=== PATIENT | female | born 1940 | race Caucasian/White ===

== ENCOUNTER 2019-08-10 08:32 | Inpatient (IN) ==
[2019-08-10] MEDS ORDERED: SODIUM CHLORIDE 0.9% 1000ML 500 ML IV ONE (08:45)
[2019-08-10] MEDS ORDERED: SODIUM CHLORIDE 0.9% 500 ML IV SCH (08:45)
--- NOTE | 2019-08-10 09:01 | Emergency Department Note ---
History of Present Illness General Chief complaint: Rectal Bleed Stated complaint: BLOOD IN STOOL, ABDOMINAL PAIN Time Seen by Provider: 08/10/19 08:56 History of Present Illness Provider complaint: Rectal bleed Onset (ago): hour(s) 4 Location: abdomen and buttocks Severity: mild Current Pain Intensity: 0 Quality: + other (Cramping) Associated symptoms: no chest pain, no fever/chills, no malaise, no nausea/vomiting, no shortness of breath and no syncope 78-year-old female presents emergency department for rectal bleeding. She reports that at 5:00 this morning she woke up and tried to go to the bathroom because she was having crampy abdominal pain and had a large bowel movement that was explosive and had lots of blood in it. She states her clothes were covered in blood. She states she felt dizzy. She denies losing consciousness, chest pain, difficulty breathing. She denies any fevers. She denies any blood in her urine or vaginal bleeding. Home Medications Home Medications Medication Instructions Recorded Confirmed Type biotin 1,000 mcg chewable tablet 1,000 mcg PO QDD 11/02/17 08/10/19 History cholecalciferol (vitamin D3) 25 1,000 units PO DAILY 11/02/17 08/10/19 History mcg (1,000 unit) capsule disopyramide phosphate 100 mg 100 mg PO QAM cap 11/02/17 08/10/19 History capsule,extended release oxygen-air delivery systems #1 11/02/17 11/14/18 History warfarin 2.5 mg tablet 3.75 mg PO HS tab 11/02/17 08/10/19 History famotidine 40 mg tablet 40 mg PO HS PRN 11/14/18 08/10/19 History sitagliptin 25 mg tablet 25 mg PO QAM 11/14/18 08/10/19 History calcium carbonate [Calcium 600] 600 mg PO DAILY 08/10/19 08/10/19 History magnesium oxide 250 mg PO DAILY 08/10/19 08/10/19 History pantoprazole [Protonix] 40 mg PO QAM 08/10/19 08/10/19 History verapamil 40 mg PO TID 08/10/19 08/10/19 History Allergies Allergy/AdvReac Type Severity Reaction Status Date / Time hydromorphone [From Dilaudid] Allergy Severe Verified 08/10/19 09:48 morphine Allergy Severe BREATHING Verified 08/10/19 09:48 DIFFICULTY oxycodone Allergy Severe Verified 08/10/19 09:48 iodine Allergy Mild Verified 08/10/19 09:48 Artificial sweeteners Allergy Unknown unknown Uncoded 08/10/19 09:48 Dust Allergy Unknown molds, Uncoded 08/10/19 09:48 cats, dogs and smoke Past Med/Surg History Medical History Accidental fall (Chronic) Closed head injury (Chronic) Contusion (Chronic) COPD (chronic obstructive pulmonary disease) (Chronic) Dizziness (Chronic) Facial contusion (Chronic) GERD (gastroesophageal reflux disease) (Chronic) Hyperglycemia (Chronic) Hypertrophic cardiomyopathy (Chronic) Multiple abrasions (Chronic) Osteoporosis (Chronic) 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) SBO (small bowel obstruction) (Chronic) Scoliosis (Chronic) Weakness (Chronic) Surgical History History of (Chronic) S/P cataract surgery (Chronic) S/P lumbar spinal fusion (Chronic) Family History Father Lung disease Heart disease Mother Heart disease Social History (Updated 08/10/19 @ 11:52 by Nicole Argueta PA-C) Feels Safe at Home: Yes Smoking Status: Never smoker Hx Alcohol Use: Yes Alcohol Intake Frequency: Holidays/Special Occasions Hx Substance Use: No Childhood Exposure to Second-Hand Smoke: Yes Review of Systems A total of 10 systems reviewed and were otherwise negative Physical Exam Vital Signs Vital Signs - 24 hr 08/10/19 08:37 08/10/19 08:45 08/10/19 10:00 Temperature 36.6 C Temperature Source Oral Pulse Rate 115 H 97 H Pulse Rate [Apical] 89 Pulse Rhythm Regular Pulse Rhythm [Apical] Regular Pulse Strength [Apical] Normal Respiratory Rate 20 20 22 Respiratory Effort / Characteristics Non-Labored Spontaneous Non-Labored Spontaneous Respiratory Depth Normal Normal Respiratory Pattern Regular Blood Pressure 98/62 L Blood Pressure [Right Arm] 124/73 Blood Pressure Mean 74 Blood Pressure Mean [Right Arm] 90 Blood Pressure Position [Right Arm] Sitting Pulse Oximetry 94 99 100 Oxygen Delivery Method Nasal Cannula Nasal Cannula Nasal Cannula Oxygen Flow Rate 2 2 2 Sepsis Recent Fever Within 48 Hours No Sepsis New/Unexplained Change in Mental Status No Sepsis Action Taken by Nursing No Action Required 08/10/19 11:39 08/10/19 11:48 Temperature Temperature Source Pulse Rate 84 Pulse Rate [Apical] 84 Pulse Rhythm Pulse Rhythm [Apical] Regular Pulse Strength [Apical] Normal Respiratory Rate 18 18 Respiratory Effort / Characteristics Non-Labored Spontaneous Respiratory Depth Normal Respiratory Pattern Regular Blood Pressure 138/69 Blood Pressure [Right Arm] 138/69 Blood Pressure Mean Blood Pressure Mean [Right Arm] 92 Blood Pressure Position [Right Arm] Sitting Pulse Oximetry 99 99 Oxygen Delivery Method Nasal Cannula Nasal Cannula Oxygen Flow Rate 2 2 Sepsis Recent Fever Within 48 Hours Sepsis New/Unexplained Change in Mental Status Sepsis Action Taken by Nursing Physical Exam GENERAL: She is oriented to person, place, and time. She appears very petite and well-nourished. She does not appear distressed. She is on 2 L oxygen which she wears at all times. HENT: Exam performed. -Head: Normocephalic and atraumatic. -Right Ear: External ear normal. No mastoid tenderness. -Left Ear: External ear normal. No mastoid tenderness. -Mouth/Throat: The oropharynx is clear and moist. No trismus in the jaw. No dental abscesses or uvula swelling. No oropharyngeal exudate or tonsillar abscesses. EYES: Conjunctivae and EOM are normal. Pupils are equal, round, and reactive to light. Right eye exhibits no discharge. Left eye exhibits no discharge. No scleral icterus. NECK: Normal range of motion. Neck supple. No JVD present. No spinous process tenderness present. No carotid bruit present. No rigidity. No tracheal deviation and normal range of motion present. No Brudzinski's sign and no Kernig's sign noted. CV: Normal rate, irregular rhythm, systolic murmur present. Patient states she has a history of systolic murmur Intact distal pulses. There is no peripheral edema. Palpable radial pulses bue. PULM/CHEST: Effort normal and breath sounds normal. No respiratory distress. No stridor. She has no wheezes. She has no rales. -Chest Wall: She exhibits no tenderness. ABD: The abdomen is soft. Bowel sounds are normal. She has no distension. No ma ss is present. There is no tenderness. There is no rebound, no guarding, no Ramirez's sign and no tenderness at McBurney's point. Rovsig negative Rectal: Bright red blood per rectum. MUSC/SKEL: Severe scoliosis, baseline for patient. LYMPH: No cervical adenopathy. NEURO: She is alert and oriented to person, place, and time. She has normal strength. No cranial nerve deficit or sensory deficit. Coordination and gait normal. GCS eye subscore is 4. GCS verbal subscore is 5. GCS motor subscore is 6. Cerebellar tests wnl. SKIN: Skin is warm and dry. She is not diaphoretic. PSYCH: She has a normal mood and affect. Behavior is normal. Judgment and thought content normal. Course Course 0845: The patient was evaluated in room C10. A complete history and physical exam was performed. 1000: Vital signs stable. Labs show stable hemoglobin. INR is elevated. Given the patient's elderly age, being on Coumadin that is supratherapeutic, and the fact that she has never had a colonoscopy the patient will be admitted for serial hemoglobins and GI evaluation. Spoke with [facility] hospitalist Caterina who stated to admit to Dr. alegre Administered Medications Sodium Chloride (Nss) 500 mls @ 125 mls/hr IV .Q4H CODY Stop: 09/09/19 08:44 Last Admin: 08/10/19 09:35 Dose: 125 mls/hr Documented by: [id number] Discontinued Medications Sodium Chloride (Nss 1000ml) 500 mls @ 999 mls/hr IV .Q31M ONE Stop: 08/10/19 09:15 Last Infusion: 08/10/19 09:35 Dose: 0 mls/hr Documented by: [id number] Admin: 08/10/19 09:09 Dose: 999 mls/hr Documented by: [id number] Medical Decision Making Laboratory Data Result diagrams: 08/10/19 08:54 08/10/19 08:54 Lab Results 08/10/19 08/10/19 08/10/19 Range/Units 08:54 08:54 08:54 WBC 6.39 (4.8-10.8) K/uL RBC 3.74 L (4.2-5.4) M/uL Hgb 10.6 L (12.0-16.0) g/dL Hct 34.0 L (37-47) % MCV 90.9 (80-100) fL MCH 28.3 (25-34) pg MCHC 31.2 L (32-36) g/dL RDW Std Deviation 42.7 (36.4-46.3) fL RDW Coeff of Ruthie 12.7 (11.5-14.5) % Plt Count 250 (130-400) K/uL MPV 8.7 (7.4-10.4) fL Immature Gran % (Auto) 0.3 % Neut % (Auto) 73.5 % Lymph % (Auto) 18.6 % [place] % (Auto) 6.9 % Eos % (Auto) 0.5 % Baso % (Auto) 0.2 % Immature Gran # (Auto) 0.02 (0.00-0.02) K/uL Neut # (Auto) 4.70 (1.4-6.5) K/uL Lymph # (Auto) 1.19 L (1.2-3.4) K/uL [place] # (Auto) 0.44 (0.11-0.59) K/uL Eos # (Auto) 0.03 (0-0.5) K/uL Baso # (Auto) 0.01 (0-0.2) K/uL PT 32.3 H (9.0-12.0) Seconds INR 3.3 H (0.9-1.1) APTT 54.5 H* (21.0-31.0) Seconds PTT Ratio 2.0 Sodium (136-145) mmol/L Potassium (3.5-5.1) mmol/L Chloride (98-107) mmol/L Carbon Dioxide (21-32) mmol/L Anion Gap (3-11) BUN (7-18) mg/dl Creatinine (0.6-1.2) mg/dl Est Cr Clr Drug Dosing ml/min Est GFR ( Amer) Est GFR (Non-Af Amer) BUN/Creatinine Ratio (10-20) Glucose (70-99) mg/dl POC Glucose (70-99) mg/dl Calcium (8.5-10.1) mg/dl Magnesium (1.8-2.4) mg/dl Total Bilirubin (0.2-1) mg/dl Direct Bilirubin (0-0.2) mg/dl AST (15-37) U/L ALT (12-78) U/L Alkaline Phosphatase (45-117) U/L Troponin I (0-0.045) ng/ml Total Protein (6.4-8.2) gm/dl Albumin (3.4-5.0) gm/dl Lipase (73-393) U/L Blood Type O Positive Antibody Screen NEGATIVE Crossmatch See Detail 08/10/19 08/10/19 Range/Units 08:54 09:08 WBC (4.8-10.8) K/uL RBC (4.2-5.4) M/uL Hgb (12.0-16.0) g/dL Hct (37-47) % MCV (80-100) fL MCH (25-34) pg MCHC (32-36) g/dL RDW Std Deviation (36.4-46.3) fL RDW Coeff of Ruthie (11.5-14.5) % Plt Count (130-400) K/uL MPV (7.4-10.4) fL Immature Gran % (Auto) % Neut % (Auto) % Lymph % (Auto) % [place] % (Auto) % Eos % (Auto) % Baso % (Auto) % Immature Gran # (Auto) (0.00-0.02) K/uL Neut # (Auto) (1.4-6.5) K/uL Lymph # (Auto) (1.2-3.4) K/uL [place] # (Auto) (0.11-0.59) K/uL Eos # (Auto) (0-0.5) K/uL Baso # (Auto) (0-0.2) K/uL PT (9.0-12.0) Seconds INR (0.9-1.1) APTT (21.0-31.0) Seconds PTT Ratio Sodium 132 L (136-145) mmol/L Potassium 4.3 (3.5-5.1) mmol/L Chloride 93 L (98-107) mmol/L Carbon Dioxide 35 H (21-32) mmol/L Anion Gap 4.0 (3-11) BUN 18 (7-18) mg/dl Creatinine 0.49 L (0.6-1.2) mg/dl Est Cr Clr Drug Dosing 53.2 ml/min Est GFR ( Amer) 109.7 Est GFR (Non-Af Amer) 94.6 BUN/Creatinine Ratio 37.3 H (10-20) Glucose 136 H (70-99) mg/dl POC Glucose 127 H (70-99) mg/dl Calcium 9.3 (8.5-10.1) mg/dl Magnesium 1.7 L (1.8-2.4) mg/dl Total Bilirubin 0.6 (0.2-1) mg/dl Direct Bilirubin 0.1 (0-0.2) mg/dl AST 22 (15-37) U/L ALT 30 (12-78) U/L Alkaline Phosphatase 71 (45-117) U/L Troponin I 0.017 (0-0.045) ng/ml Total Protein 7.3 (6.4-8.2) gm/dl Albumin 3.4 (3.4-5.0) gm/dl Lipase 98 (73-393) U/L Blood Type Antibody Screen Crossmatch ECG Data Indication: + other (GIB) Rate (beats per minute): 106 Rhythm: + sinus tachycardia ECG Intervals/blocks: + Normal QRS, + Normal AK and + Normal QT-c ECG ST segments: + Normal ST segments MDM Narrative Vital signs stable. Labs show stable hemoglobin. INR is elevated. Given the patient's elderly age, being on Coumadin that is supratherapeutic, and the fact that she has never had a colonoscopy the patient will be admitted for serial hemoglobins and GI evaluation. Spoke with [facility] hospitalist Caterina who stated to admit to Dr. alegre Impression & Plan Acute GI bleeding, Supratherapeutic INR Discharge Plan Visit Data Chief Complaint: Rectal Bleed Stated Complaint: BLOOD IN STOOL, ABDOMINAL PAIN ED Provider: Chuck Ceron Discharge Problem: Acute GI bleeding, Supratherapeutic INR Patient Disposition: Admitted As Inpatient Forms Stand Alone Forms: My [facility] Prescriptions Prescriptions: No Action biotin 1,000 mcg tablet,chewable 1,000 mcg PO QDD RF: 0 cholecalciferol (vitamin D3) 1,000 unit capsule 1,000 units PO DAILY RF: 0 disopyramide phosphate [Norpace CR] 100 mg capsule, extended release 100 mg PO QAM RF: 0 warfarin [Coumadin] 2.5 mg tablet 3.75 mg PO HS RF: 0 (DME) oxygen-air delivery systems device See Dose Instructions .ROUTE .MEDSUPPLY Qty: 1 RF: 0 Januvia 25 mg tablet 25 mg PO QAM RF: 0 famotidine [Pepcid] 40 mg tablet 40 mg PO HS PRN (Reason: Acid Reflux) RF: 0 verapamil 40 mg tablet 40 mg PO TID RF: 0 pantoprazole [Protonix] 40 mg tablet,delayed release (DR/EC) 40 mg PO QAM RF: 0 calcium carbonate [Calcium 600] 600 mg calcium (1,500 mg) Tablet 600 mg PO DAILY RF: 0 magnesium oxide 250 mg magnesium Tablet 250 mg PO DAILY RF: 0 Referrals Referrals: Beatrice More MD [Primary Care Provider] -
[2019-08-10 09:12] LABS: Basophils # (auto) 0.01 K/uL (0-0.2); Basophils % (auto) 0.2 %; Eosinophils # (auto) 0.03 K/uL (0-0.5); Eosinophils % (auto) 0.5 %; Hemoglobin 10.6 g/dL (12.0-16.0); Immature Granulocytes # (auto) 0.02 K/uL (0.00-0.02); Immature Granulocytes % (auto) 0.3 %; Lymphocytes # (auto) 1.19 K/uL (1.2-3.4); Lymphocytes % (auto) 18.6 %; Mean Corpuscular Hemoglobin 28.3 pg (25-34); Mean Corpuscular Hgb Conc 31.2 g/dL (32-36); Mean Corpuscular Volume 90.9 fL (80-100); Mean Platelet Volume 8.7 fL (7.4-10.4); Monocytes # (auto) 0.44 K/uL (0.11-0.59); Monocytes % (auto) 6.9 %; Neutrophils % (auto) 73.5 %; Platelet Count 250 K/uL (130-400); RDW Coefficient of Variation 12.7 % (11.5-14.5); RDW Standard Deviation 42.7 fL (36.4-46.3); Red Blood Count 3.74 M/uL (4.2-5.4); White Blood Count 6.39 K/uL (4.8-10.8)
[2019-08-10 09:29] LABS: Albumin Level 3.4 gm/dl (3.4-5.0); BUN Creatinine Ratio 37.3 (10-20); Bilirubin Direct 0.1 mg/dl (0-0.2); Calcium 9.3 mg/dl (8.5-10.1); Creatinine Clr Calc Pharmacy 53.2 ml/min; Est GFR (African American) 109.7; Est GFR (Non-African American) 94.6; Magnesium 1.7 mg/dl (1.8-2.4); Potassium 4.3 mmol/L (3.5-5.1)
[2019-08-10 09:33] LABS: INR 3.3 (0.9-1.1); Prothrombin Time 32.3 Seconds (9.0-12.0)
[2019-08-10 09:34] LABS: Bilirubin,Total 0.6 mg/dl (0.2-1); Total Protein 7.3 gm/dl (6.4-8.2); Troponin I 0.017 ng/ml (0-0.045)
[2019-08-10 09:37] LABS: Partial Thromboplastin Time 54.5 Seconds (21.0-31.0)
[2019-08-10] MEDS ORDERED: SODIUM CHLORIDE 0.9% 250 ML IV PRN ×4 (10:39→22:41)
[2019-08-10] MEDS ORDERED: PHYTONADIONE 5 MG TAB PO STA (11:40)
[2019-08-10] MEDS ORDERED: PANTOPRAZOLE BOLUS/DRIP 1 EA IV STA (11:45)
[2019-08-10] MEDS ORDERED: PANTOprazole 80 MG in DEXTROSE 5% 100 ML IV ONE (11:45)
--- NOTE | 2019-08-10 11:49 | History & Physical Report ---
Date of Service August 10, 2019 Assessment & Plan (1) Rectal bleeding: (2) Supratherapeutic INR: Pt is 78 y/o F with PMH paroxysmal atrial fibrillation on Coumadin, hypertrophic obstructive cardiomyopathy, chronic respiratory failure on 2 L oxygen secondary to scoliosis, GERD presented to ER with complaint abdominal cramping this morning with explosive loose stool with bright red blood. Reported dizzy, denies syncope. In ER pt afebrile, P: 115 down to 88, R: 20, BP: 98/62, 94% on chronic 2L oxygen via NC No leukocytosis, H/H: 10.6/34 (Hgb: 11.9 on 08/01/2019), Plt: 250, INR: 3.3, BUN: 18, Cr: 0.49 Appears lower GI bleed. DDX: diverticular bleed, colitis, mass/cancer -In ER given 500ml NSS bolus followed by 125ml/hr -NPO -Type and cross PRBC and hold -Monitor H&H -Gentle IVF -Vitamin K 5mg po now -Monitor for further GI output -GI consult, spoke to Shruti TOM, recommends PPI drip; Pending further recommendations on CT abd/pelvis (3) Hypomagnesemia: Magnesium: 1.7 -Replace and monitor (4) Paroxysmal atrial fibrillation: On Coumadin INR: 3.3 today. Sinus rhythm -Hold Coumadin -Vitamin K 5mg po -Continue verapamil and norpace (5) Diabetes mellitus, type II: A1c: 6.4 on 08/01/2019 -Hold Januvia -NPO status for now -Monitor BSGs (6) Chronic respiratory failure: (7) Nocturnal hypoxemia: Restrictive lung disease secondary to scoliosis. Pt denies COPD diagnosis -Continue chronic 2L oxygen via NC -Home Bipap HS (8) Hypertrophic cardiomyopathy: History echo 2017: EF: 70%, grade 1 diastolic dysfunction, mild LVH, left ventricular outflow tract obstruction, mild mitral regurgitation, mild aortic stenosis -Continue Norpace (9) GERD (gastroesophageal reflux disease): -Hold oral PPI as on IV PPI currently DVT Prophylaxis -SCDs DNR/DNI as per discussion with pt Follows with Dr More for routine care Pt was seen and care coordinated with Dr Upton. See addendum History of Present Illness Chief Complaint: rectal bleeding Primary Care Provider: Beatrice More MD Pt is 78 y/o F with PMH paroxysmal atrial fibrillation on Coumadin, hypertrophic obstructive cardiomyopathy, chronic respiratory failure on 2 L oxygen secondary to scoliosis, GERD presented to ER with complaint of rectal bleeding. Patient states woke up this morning at 5 AM with abdominal cramping followed by explosive loose stool with bright red blood. Patient states blood covered nightgown and toilet. Denies any further abdominal pain. Patient states after episode felt dizzy, denies syncope. Last ate and drank at 9 PM last night. Did not take morning meds. Denies history of EGD or colonoscopy in past. Patient reports mother with history of colon cancer age 85. pt brings monthly log of her INR's since 01/2019 and have been from 2.1-2.8. Denies fever/chills, diaphoresis, N/V, HARVEY, vision changes, neck pain, CP, SOB, orthopnea, palpitations, cough, sore throat, choking, otalgia, rhinorrhea, paresthesias, weakness, extremity weakness, extremity edema, rashes, urinary symptoms. Denies NSAID use. History CT abdomen pelvis in 2007: Mild diverticulosis, mild wall thickening descending and rectosigmoid colon. Patient reports was to follow-up with GI however never did. Denies any prior history of rectal bleeding or melena. Allergies Allergy/AdvReac Type Severity Reaction Status Date / Time hydromorphone [From Dilaudid] Allergy Severe Verified 08/10/19 09:48 morphine Allergy Severe BREATHING Verified 08/10/19 09:48 DIFFICULTY oxycodone Allergy Severe Verified 08/10/19 09:48 iodine Allergy Mild Verified 08/10/19 09:48 Artificial sweeteners Allergy Unknown unknown Uncoded 08/10/19 09:48 Dust Allergy Unknown molds, Uncoded 08/10/19 09:48 cats, dogs and smoke Home Medications Home Medications Medication Instructions Recorded Confirmed Type biotin 1,000 mcg chewable tablet 1,000 mcg PO QDD 11/02/17 08/10/19 History cholecalciferol (vitamin D3) 25 1,000 units PO DAILY 11/02/17 08/10/19 History mcg (1,000 unit) capsule disopyramide phosphate 100 mg 100 mg PO QAM cap 11/02/17 08/10/19 History capsule,extended release oxygen-air delivery systems #1 11/02/17 11/14/18 History warfarin 2.5 mg tablet 3.75 mg PO HS tab 11/02/17 08/10/19 History famotidine 40 mg tablet 40 mg PO HS PRN 11/14/18 08/10/19 History sitagliptin 25 mg tablet 25 mg PO QAM 11/14/18 08/10/19 History calcium carbonate [Calcium 600] 600 mg PO DAILY 08/10/19 08/10/19 History magnesium oxide 250 mg PO DAILY 08/10/19 08/10/19 History pantoprazole [Protonix] 40 mg PO QAM 08/10/19 08/10/19 History verapamil 40 mg PO TID 08/10/19 08/10/19 History Past Med/Surg History Medical History (Updated 08/10/19 @ 11:57 by Nicole Argueta PA-C) Chronic respiratory failure Closed head injury (Chronic) Contusion (Chronic) COPD (chronic obstructive pulmonary disease) (Chronic) Diabetes mellitus, type II Dizziness (Chronic) Facial contusion (Chronic) GERD (gastroesophageal reflux disease) (Chronic) Hyperglycemia (Chronic) Hypertrophic cardiomyopathy (Chronic) Multiple abrasions (Chronic) Nocturnal hypoxemia Osteoporosis (Chronic) Paroxysmal atrial fibrillation 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) SBO (small bowel obstruction) (Chronic) Scoliosis (Chronic) Weakness (Chronic) Surgical History History of (Chronic) S/P cataract surgery (Chronic) S/P lumbar spinal fusion (Chronic) Family History Father Lung disease Heart disease Mother Heart disease Social History (Updated 08/10/19 @ 11:52 by Nicole Argueta PA-C) Feels Safe at Home: Yes Smoking Status: Never smoker Hx Alcohol Use: Yes Alcohol Intake Frequency: Holidays/Special Occasions Hx Substance Use: No Childhood Exposure to Second-Hand Smoke: Yes Review of Systems Review of Systems: All systems reviewed & are unremarkable except as noted in HPI & below Physical Exam Physical Exam: General: no distress, thin elderly female Head: normocephalic, atraumatic Eyes: PERRL, EOM's intact, conjunctiva non-injected, anicteric ENT: normal inspection external ears, nose, mucous membranes moist Neck: supple, trachea midline Lungs: clear, no respiratory distress CV: RRR, +systolic murmur, no pretibial edema Abd: normal BS, soft, non-tender to palpation Back: +scoliosis Ext: no cyanosis, no calf tenderness Neuro: A&O x 3, no focal deficits noted, normal affect Skin: warm, dry Results & Data Results & Data ([facility]) Vital Signs (Past 12 Hours) Vital Signs Temp Pulse Pulse Resp BP BP Pulse Ox 08/10/19 11:39 84 18 138/69 99 08/10/19 10:00 89 22 124/73 100 08/10/19 08:45 97 H 20 99 08/10/19 08:37 36.6 C 115 H 20 98/62 L 94 Laboratory Results Short CBC 08/10/19 Range/Units 08:54 WBC 6.39 (4.8-10.8) K/uL Hgb 10.6 L (12.0-16.0) g/dL Hct 34.0 L (37-47) % Plt Count 250 (130-400) K/uL BMP 08/10/19 08:54 Sodium 132 L Potassium 4.3 Chloride 93 L Carbon Dioxide 35 H BUN 18 Creatinine 0.49 L Glucose 136 H Calcium 9.3 Cardiac Enzymes 08/10/19 Range/Units 08:54 Troponin I 0.017 (0-0.045) ng/ml Liver Function 08/10/19 Range/Units 08:54 Total Bilirubin 0.6 (0.2-1) mg/dl Direct Bilirubin 0.1 (0-0.2) mg/dl AST 22 (15-37) U/L ALT 30 (12-78) U/L Alkaline Phosphatase 71 (45-117) U/L Albumin 3.4 (3.4-5.0) gm/dl ECG Rate (beats per minute): 106 Rhythm: sinus tachycardia Code Status & VTE Plan VTE Prophylaxis Plan VTE Prophylaxis will be ordered: Yes Supervising Physician Co-Signing Physician Notes Attending Addendum: care coordinated with ALEXIS Glover please refer to her notes for full details, I agree with her notes patient seen and examined, records reviewed by myself as well on exam, patient seen resting in bed, comfortable,not in distress states she feels somewhat improved compared to admission no active abdominal pain, nausea, dizziness, chest pain, dyspnea, palpitations last hematochezia episode at the ER this morning, moderate amount no other symptoms VS noted and reviewed oriented x 3 , not in distress, speaks in sentences with no effort nor accessory muscle use normal rate, regular rhythm, no murmurs clear breath sounds bilaterally non distended, soft, nontender no bipedal edema, erythema, warmth no neuro deficits WBC 6.3 Hg 10.6 Crea 0.49 EKG sinus tachycardia ASSESSMENT AND PLAN HEMATOCHEZIA, likely lower GI bleed, in the setting of COUMADIN USE FOR A FIB history of diverticulosis management of anemia below NPO, IV fluids, GI consulted INR 3.3, Vit K 5mg po given, INR daily ACUTE BLOOD LOSS ANEMIA Hg 10 monitor q6h, starting at 1pm 2 units PRBC on hold, consent signed tranfuse for Hg < 7 other diagnoses and plan of care as per ALEXIS Rvias notes Octaviano Upton MD
--- NOTE | 2019-08-10 12:26 | Gastrointestinal Consultation ---
Date of Consultation August 10, 2019 Assessment & Plan (1) Rectal bleedin78 y/o female pt with PMHx PAF on Coumadin, GERD, chronic resp failure on o2 and others below, admitted with several episodes of abd cramping and bloody diarrhea today, with baseline HGB 12 -> 10.6, BUN WNL, INR 3.3. Initially was a little hypotensive/tachy however VS improved with IVF and are stable. Abd is soft, currently nontender. Diff dx = ischemic/infectious/inflammatory colitis, unlikely brisk upper GIB from PUD/gastritis/etc, vs small bowel source, though normal BUN and lack of upper abd discomfort point against UGI source. - Agree with Vit K to reverse INR - Continue IV PPI - CTAP ordered (noncon due to iodine allergy) - Continue IVF - Trend H&H, transfuse PRN - Hold AC - Keep NPO - Monitor and document all GI output. - Will send stool for c. diff, culture to r/o infectious source - Will review need for endoscopy pending results of above Thank you for allowing us to participate in the care of this patient. Please call with any acute changes, questions or concerns. Please see addendum below with additional recommendation from my supervising physician. (2) Abdominal pain: Supervising Physician Co-Signing Physician Notes I performed a history and physical examination of the patient today, including specifically on physical exam - soft abdomen. I have discussed the patient's management with the advanced practitioner. Please refer to the nurse practitioner's note for the documented findings and plan of care. 78 yrs old female patient with constipation, admitted with BRBPR, hemodynamically stable. INR>3 due to Coumadin. Stool was seen in bathroom, solid brown stool with bright red blood around it, this suggest colonic source, diverticular, ischemic or stercoral ulcer. CT scan showed fecal retention. Plan: Correct coagulopathy. Give 2 L of Golytely now to clean her fecal retention. If bleeding persists or clinical status changes then may need colonoscopy over the weekend, otherwise may plan for Tuesday or OP based on clinical condition over the weekend. History of Present Illness Reason for Consultation: GIB Attending Physician: Octaviano Upton MD History of Present Illness Pt is a 78 y/o female with PMhx restrictive lung disease on chronic O2, T2DM, GERD, PAF on Coumadin, aortic stenosis, HCM, fam hx colon CA (mother), who early this AM developed 3 episodes of acute crampy lower abd pain followed by "explosive" loose bright red bloody stool. She did have some lightheadedness. She came to the ER and on arrival, HGB 10.6 (Baseline 12), INR supratherapeutic at 3.3, BUN 18, Cr 0.49, plts 250, WBC 6, Na 132, K 4.3. Initially BP was somewhat low and she was slightly tachy; VS now stable; BPs in the 110's, pulse 80's, afebrile. She had 1 further episode since admission. PPI gtt started along with IVF, vit K for INR reversal. Presently abd cramping only occurs intermittently; currently has none. She has some frequent heartburn despite daily PPI; takes H2RA with relief. Denies any recent change in meds, no ABX, no recent illnesses. Has refused endoscopies in the past even though her mother had colon CA. States "She may now be up for colonoscopy." No NSAIDs, tobacco. Denies n/v, hematemesis, melena, dysuria, hematuria, chest pain, dyspnea, syncope, change in appetite, easy bruising/bleeding, weight loss. Allergies Allergy/AdvReac Type Severity Reaction Status Date / Time hydromorphone [From Dilaudid] Allergy Severe Verified 08/10/19 09:48 morphine Allergy Severe BREATHING Verified 08/10/19 09:48 DIFFICULTY oxycodone Allergy Severe Verified 08/10/19 09:48 iodine Allergy Mild Verified 08/10/19 09:48 Artificial sweeteners Allergy Unknown unknown Uncoded 08/10/19 09:48 Dust Allergy Unknown molds, Uncoded 08/10/19 09:48 cats, dogs and smoke Home Medications Home Medications Medication Instructions Recorded Confirmed Type biotin 1,000 mcg chewable tablet 1,000 mcg PO QDD 11/02/17 08/10/19 History cholecalciferol (vitamin D3) 25 1,000 units PO DAILY 11/02/17 08/10/19 History mcg (1,000 unit) capsule oxygen-air delivery systems #1 11/02/17 11/14/18 History warfarin 2.5 mg tablet 3.75 mg PO HS tab 11/02/17 08/10/19 History famotidine 40 mg tablet 40 mg PO HS PRN 11/14/18 08/10/19 History sitagliptin 25 mg tablet 25 mg PO QAM 11/14/18 08/10/19 History calcium carbonate [Calcium 600] 600 mg PO DAILY 08/10/19 08/10/19 History disopyramide phosphate [Norpace] 100 mg PO QAM 08/10/19 08/10/19 History magnesium oxide 250 mg PO DAILY 08/10/19 08/10/19 History pantoprazole [Protonix] 40 mg PO QAM 08/10/19 08/10/19 History verapamil 40 mg PO TID 08/10/19 08/10/19 History Patient History Medical History (Updated 08/10/19 @ 11:57 by Nicole Argueta PA-C) Chronic respiratory failure Closed head injury (Chronic) Contusion (Chronic) COPD (chronic obstructive pulmonary disease) (Chronic) Diabetes mellitus, type II Dizziness (Chronic) Facial contusion (Chronic) GERD (gastroesophageal reflux disease) (Chronic) Hyperglycemia (Chronic) Hypertrophic cardiomyopathy (Chronic) Multiple abrasions (Chronic) Nocturnal hypoxemia Osteoporosis (Chronic) Paroxysmal atrial fibrillation 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) SBO (small bowel obstruction) (Chronic) Scoliosis (Chronic) Weakness (Chronic) Surgical History History of (Chronic) S/P cataract surgery (Chronic) S/P lumbar spinal fusion (Chronic) Family History Father Lung disease Heart disease Mother Heart disease Social History (Updated 08/10/19 @ 11:52 by Nicole Argueta PA-C) Preferred Language: Syriac Communication Ability: Effective Asbestos Worker Helper Required: No Beliefs That Will Affect Care: None marital status: Current Living Situation: Spouse Feels Safe at Home: Yes Safety Concerns: Feels Safe At This Time Smoking Status: Never smoker Hx Alcohol Use: Yes Alcohol type: wine Alcohol Intake Frequency: Holidays/Special Occasions Hx Substance Use: No Childhood Exposure to Second-Hand Smoke: Yes Review of Systems Review of Systems: All systems reviewed & are unremarkable except as noted in HPI & below Physical Exam Constitutional: well developed and + thin; no acute distress Eyes: PERRL, conjunctivae normal, anicteric sclerae Respiratory: normal respiratory effort, lungs clear to auscultation no respiratory distress Cardiovascular: Rate/Rhythm: regular rate and regular rhythm systolic murmur heard best RUSB Gastrointestinal (Abdomen): Inspection/Auscultation: abdomen normal to inspection and + hyperactive bowel sounds; abdomen not distended Percussion/Palpation: abdomen soft; abdomen nontender Skin: no rashes, warm and dry Psychiatric: A+Ox3, euthymic affect Results & Data ([facility]) Vital Signs (Past 12 Hours) Vital Signs Temp Pulse Pulse Resp BP BP Pulse Ox 08/10/19 11:48 84 18 138/69 99 08/10/19 11:39 84 18 138/69 99 08/10/19 10:00 89 22 124/73 100 08/10/19 08:45 97 H 20 99 08/10/19 08:37 36.6 C 115 H 20 98/62 L 94 Laboratory Results 08/10/19 08/10/19 08/10/19 Range/Units 12:58 09:08 08:54 WBC (4.8-10.8) K/uL RBC (4.2-5.4) M/uL Hgb 9.6 L (12.0-16.0) g/dL Hct 31.2 L (37-47) % MCV (80-100) fL MCH (25-34) pg MCHC (32-36) g/dL RDW Std Deviation (36.4-46.3) fL RDW Coeff of Ruthie (11.5-14.5) % Plt Count (130-400) K/uL MPV (7.4-10.4) fL Immature Gran % (Auto) % Neut % (Auto) % Lymph % (Auto) % [place] % (Auto) % Eos % (Auto) % Baso % (Auto) % Immature Gran # (Auto) (0.00-0.02) K/uL Neut # (Auto) (1.4-6.5) K/uL Lymph # (Auto) (1.2-3.4) K/uL [place] # (Auto) (0.11-0.59) K/uL Eos # (Auto) (0-0.5) K/uL Baso # (Auto) (0-0.2) K/uL PT (9.0-12.0) Seconds INR (0.9-1.1) APTT (21.0-31.0) Seconds PTT Ratio Sodium 132 L (136-145) mmol/L Potassium 4.3 (3.5-5.1) mmol/L Chloride 93 L (98-107) mmol/L Carbon Dioxide 35 H (21-32) mmol/L Anion Gap 4.0 (3-11) BUN 18 (7-18) mg/dl Creatinine 0.49 L (0.6-1.2) mg/dl Est Cr Clr Drug Dosing 53.2 ml/min Est GFR ( Amer) 109.7 Est GFR (Non-Af Amer) 94.6 BUN/Creatinine Ratio 37.3 H (10-20) Glucose 136 H (70-99) mg/dl POC Glucose 127 H (70-99) mg/dl Calcium 9.3 (8.5-10.1) mg/dl Magnesium 1.7 L (1.8-2.4) mg/dl Total Bilirubin 0.6 (0.2-1) mg/dl Direct Bilirubin 0.1 (0-0.2) mg/dl AST 22 (15-37) U/L ALT 30 (12-78) U/L Alkaline Phosphatase 71 (45-117) U/L Troponin I 0.017 (0-0.045) ng/ml Total Protein 7.3 (6.4-8.2) gm/dl Albumin 3.4 (3.4-5.0) gm/dl Lipase 98 (73-393) U/L Blood Type Antibody Screen Crossmatch 08/10/19 08/10/19 08/10/19 Range/Units 08:54 08:54 08:54 WBC 6.39 (4.8-10.8) K/uL RBC 3.74 L (4.2-5.4) M/uL Hgb 10.6 L (12.0-16.0) g/dL Hct 34.0 L (37-47) % MCV 90.9 (80-100) fL MCH 28.3 (25-34) pg MCHC 31.2 L (32-36) g/dL RDW Std Deviation 42.7 (36.4-46.3) fL RDW Coeff of Ruthie 12.7 (11.5-14.5) % Plt Count 250 (130-400) K/uL MPV 8.7 (7.4-10.4) fL Immature Gran % (Auto) 0.3 % Neut % (Auto) 73.5 % Lymph % (Auto) 18.6 % [place] % (Auto) 6.9 % Eos % (Auto) 0.5 % Baso % (Auto) 0.2 % Immature Gran # (Auto) 0.02 (0.00-0.02) K/uL Neut # (Auto) 4.70 (1.4-6.5) K/uL Lymph # (Auto) 1.19 L (1.2-3.4) K/uL [place] # (Auto) 0.44 (0.11-0.59) K/uL Eos # (Auto) 0.03 (0-0.5) K/uL Baso # (Auto) 0.01 (0-0.2) K/uL PT 32.3 H (9.0-12.0) Seconds INR 3.3 H (0.9-1.1) APTT 54.5 H* (21.0-31.0) Seconds PTT Ratio 2.0 Sodium (136-145) mmol/L Potassium (3.5-5.1) mmol/L Chloride (98-107) mmol/L Carbon Dioxide (21-32) mmol/L Anion Gap (3-11) BUN (7-18) mg/dl Creatinine (0.6-1.2) mg/dl Est Cr Clr Drug Dosing ml/min Est GFR ( Amer) Est GFR (Non-Af Amer) BUN/Creatinine Ratio (10-20) Glucose (70-99) mg/dl POC Glucose (70-99) mg/dl Calcium (8.5-10.1) mg/dl Magnesium (1.8-2.4) mg/dl Total Bilirubin (0.2-1) mg/dl Direct Bilirubin (0-0.2) mg/dl AST (15-37) U/L ALT (12-78) U/L Alkaline Phosphatase (45-117) U/L Troponin I (0-0.045) ng/ml Total Protein (6.4-8.2) gm/dl Albumin (3.4-5.0) gm/dl Lipase (73-393) U/L Blood Type O Positive Antibody Screen NEGATIVE Crossmatch See Detail
[2019-08-10] MEDS ORDERED: GLUCOSE 40% GEL 15 GM TUBE PO PRN ×2 (12:32→16:54)
[2019-08-10] MEDS ORDERED: D5W AND NSS 1,000 ML IV SCH (12:32)
[2019-08-10] MEDS ORDERED: GLUCAGON FOR INJ 1 MG VIAL SQ PRN ×2 (12:32→16:54)
[2019-08-10] MEDS ORDERED: CARBOHYDRATES FOR HYPOGLYCEMIA PO PRN ×2 (12:32→16:54)
[2019-08-10] MEDS ORDERED: DEXTROSE 50% 50 ML SYRINGE IV PRN ×2 (12:32→16:54)
[2019-08-10] MEDS ORDERED: ACETAMINOPHEN 325 MG TAB PO PRN (12:32)
[2019-08-10] MEDS ORDERED: GLUCOSE 10 TABS/TUBE PO PRN ×2 (12:32→16:54)
[2019-08-10] MEDS: PANTOprazole 40 MG in DEXTROSE 5% 100 ML IV SCH ×3 (12:49→22:52)
[2019-08-10 13:11] LABS: Hematocrit (blood only) 31.2 % (37-47); Hemoglobin 9.6 g/dL (12.0-16.0)
[2019-08-10] MEDS ORDERED: MAGNESIUM SULFATE / D5W 1 GM/100 ML BAG IV ONE (13:15)
--- NOTE | 2019-08-10 13:38 | CT Scan Report ---
CT SCAN OF THE ABDOMEN AND PELVIS WITHOUT CONTRAST CLINICAL HISTORY: hematochezia COMPARISON STUDY: September 19, 2014 TECHNIQUE: CT scan of the abdomen and pelvis was performed from the lung bases to the proximal femurs . Images are reviewed in the axial, sagittal, and coronal planes. IV contrast was not administered fo r this examination. A dose lowering technique was utilized adhering to the principles of ALARA. CT DOSE: 246.06 mGy.cm FINDINGS: Lower chest: There are persistent right lower lobe atelectatic changes. Liver: The unenhanced liver is normal in size, contour, and attenuation. There is no intrahepatic teddy iary ductal dilatation. Gallbladder: Unremarkable. Spleen: Normal in size and attenuation. Pancreas: Unremarkable. Adrenal glands: Unremarkable. Kidneys: There is a 2 mm nonobstructing left renal calculus. There is no hydronephrosis. No ureteral or bladder calculi are visualized. Bowel: There are no transition zones indicate bowel obstruction. There is no evidence of acute divert iculitis. There is moderate fecal retention. Clinical correlation regards to constipation is recommen ded. There are no findings to indicate acute appendicitis. Peritoneum: There is no intraperitoneal free air or abdominal ascites. Vasculature: The abdominal aorta is normal in course and caliber. Adenopathy: None. Pelvic viscera: There is a 42 mm right adnexal cystic lesion, likely ovarian. Skeletal structures: There is a severe scoliosis. IMPRESSION: 1. Examination limited due to the lack of intravenous and oral contrast 2. 2 mm nonobstructing left renal calculus 3. No evidence of bowel obstruction. No evidence of free air 4. No evidence of acute appendicitis. No evidence of acute diverticulitis 5. 42 mm cystic right adnexal lesion, likely ovarian. Given the age of the patient, ultrasound follow -up is recommended. 6. Fecal retention. Clinical correlation regards to constipation is recommended 7. Severe scoliosis ACT 112: Negative or not required by law. Electronically signed by: Donny Gonzalez M.D. 08/10/2019 1:37 PM
[2019-08-10] MEDS ORDERED: DISOPYRAMIDE PHOSPHATE 100 MG PO SCH (14:00)
[2019-08-10] MEDS: VERAPAMIL HCL 40 MG TAB PO SCH ×2 (14:10→20:50)
[2019-08-10] MEDS ORDERED: LAVAGE SOLUTION 4000ML PO SCH (16:30)
[2019-08-10 19:18] LABS: Hematocrit (blood only) 26.1 % (37-47); Hemoglobin 8.2 g/dL (12.0-16.0)
[2019-08-10] MEDS ORDERED: Nursing to Pharmacy Communication ONE (20:07)
[2019-08-10] MEDS: ONDANSETRON INJ 2 MG/ML 2 ML VIAL IV PRN (20:10)
[2019-08-10] MEDS: INSULIN ASPART 100 UNITS/ML 3 ML PEN SC SCH (20:51)
[2019-08-10] MEDS ORDERED: INSULIN ASPART 100 UNITS/ML 3 ML PEN SC SCH (21:00)
[2019-08-10] MEDS ORDERED: SODIUM CHLORIDE 0.9% 1000ML 1,000 ML IV SCH ×2 (22:33→23:45)
[2019-08-10 22:36] LABS: Hemoglobin 6.7 g/dL (12.0-16.0); Mean Corpuscular Hgb Conc 31.9 g/dL (32-36); Mean Corpuscular Volume 90.9 fL (80-100); Mean Platelet Volume 8.4 fL (7.4-10.4); Platelet Count 182 K/uL (130-400); RDW Coefficient of Variation 12.8 % (11.5-14.5); RDW Standard Deviation 42.4 fL (36.4-46.3); Red Blood Count 2.31 M/uL (4.2-5.4); White Blood Count 5.92 K/uL (4.8-10.8)
[2019-08-10 22:41] LABS: Albumin Level 2.5 gm/dl (3.4-5.0); BUN Creatinine Ratio 35.5 (10-20); Creatinine Clr Calc Pharmacy 55.5 ml/min; Est GFR (African American) 111.2; Est GFR (Non-African American) 95.9
[2019-08-10 22:49] LABS: Basophils # (auto) 0.01 K/uL (0-0.2); Basophils % (auto) 0.2 %; Eosinophils # (auto) 0.01 K/uL (0-0.5); Eosinophils % (auto) 0.2 %; Hypochromasia Present; Immature Granulocytes # (auto) 0.02 K/uL (0.00-0.02); Immature Granulocytes % (auto) 0.3 %; Lymphocytes # (auto) 0.94 K/uL (1.2-3.4); Lymphocytes % (auto) 15.9 %; Monocytes # (auto) 0.32 K/uL (0.11-0.59); Monocytes % (auto) 5.4 %; Neutrophils # (auto) 4.62 K/uL (1.4-6.5)
[2019-08-10 22:50] LABS: Bilirubin,Total 0.5 mg/dl (0.2-1); Globulin 2.6 gm/dl (2.5-4.0); Total Protein 5.1 gm/dl (6.4-8.2)
[2019-08-10 22:51] LABS: INR 3.6 (0.9-1.1); Partial Thromboplastin Ratio 1.7; Prothrombin Time 35.2 Seconds (9.0-12.0)
[2019-08-10 22:58] LABS: Partial Thromboplastin Time 46.2 Seconds (21.0-31.0)
[2019-08-10] MEDS ORDERED: FUROSEMIDE 20 MG in SYRINGE 0 ML IV ONE (23:00)
--- NOTE | 2019-08-10 23:21 | Critical Care Consultation ---
Date of Consultation August 10, 2019 Assessment & Plan (1) Supratherapeutic INR: Reason Critically Ill: 78-year-old female admitted with acute GI bleed with acute blood loss anemia and supratherapeutic INR, code brigid called for hypotension and syncopal episode. Requiring multiple blood product transfusions and scheduled for endoscopy in the a.m. Neuro - [facility] ICU: Negative Syncopal eventpatient reportedly lost consciousness while going to the bathroom -Suspected syncopal event in the setting of GI bleed with acute blood loss anemia -Symptoms have since improved with volume resuscitation Cardiac - Hypertrophic cardiomyopathyecho from 2017 showed EF 70%, grade 1 diastolic dysfunction, mild LVH, left ventricular outflow tract obstruction, mild mitral regurg, mild aortic stenosis -We will continue volume resuscitation as she has had volume loss with GI bleed resulting in mild hypotension -Diuresis discontinued Proximal A. fibpatient was on Coumadin however discontinued for supratherapeutic INR -She is currently in normal sinus rhythm -Continue to monitor on telemetry -Maximize electrolyte Respiratory - Chronic respiratory failure secondary to restrictive lung disease from scoliosisat baseline, patient currently maintaining sats at home dose 2 L nasal cannula -Continuous monitoring on pulse ox GI - Acute GI bleedpatient has had multiple bloody bowel movements with bright red blood, likely lower GI bleed -No diverticulitis noted on CT abdomen however imaging was limited due to contrast allergy, no bowel obstruction -See treatment of acute blood loss anemia and supratherapeutic INR below -Patient to undergo endoscopy in the morning, case was discussed with Dr. Garcia, will correct INR prior to endoscope -N.p.o. -Discontinued GoLYTELY RENAL/LYTES - Creatinine stable, monitor electrolytes and replete as indicated with routine BMPs - Strict I's and O's ENDO - DM type IIcontinue sliding scale -Holding Januvia -ICU hyperglycemic protocol HEME - Acute blood loss anemiasecondary to GI bleed, see management above -Patient to undergo initial 2 units RBCs for hemoglobin 6.7, will trend H&H every 4 hours and transfuse if necessary Supratherapeutic INRpatient initially presented with INR 3.3 in the setting of acute GI bleed -Was initially given oral vitamin K, patient continued to bleed throughout the day and INR elevated to 3.7 on recheck following code purple -Currently transfusing with FFP with INR goal 1.5 or less -Coumadin DC'd on admission, holding other anticoagulants ID - No indication for infectious process at this time LINES/IV ACCESS - PIV's DVT PROPHYLAXIS - SCDs, hold anticoagulation for GI bleed I have personally spent 50 minutes of critical care time in the direct management of this patient. This is a life/limb threatening event. This includes time spent evaluating patient, direct bedside care, chart review, placing orders, interpretation of diagnostic studies, discussion with consultants, patient, and family members, as well as other required patient management activities. This time is exclusive of all separately billable procedures, and teaching time and separate from and in addition to any other critical care service time. Thank you for allowing us to participate in the care of this patient. Please refer to my attending physician's documentation for any further recommendations. (2) Acute GI bleeding: (3) Diabetes mellitus, type II: (4) Chronic respiratory failure: (5) Restrictive lung disease due to kyphoscoliosis: History of Present Illness Attending Physician: Octaviano Upton MD History of Present Illness Ms. Sinha is a 78-year-old female with PMH of proximal A. fib on Coumadin, hypertrophic obstructive cardiomyopathy, DM type II, restrictive lung disease due to scoliosis with chronic respiratory failure on 2 L baseline. Patient was admitted yesterday after having an episode of melena which was bright red and she did report dizziness. She denies history of EGD or colonoscopy. She did have a CT abdomen in 2007 that revealed mild diverticulosis and mild wall thickening of the descending and rectosigmoid colon but did not follow-up with GI. On this admission, INR was found to be supratherapeutic at 3.3 and she was initially treated with oral vitamin K. However, patient's hemoglobin has continued to downtrend throughout the day. She was given GoLYTELY in anticipation for endoscope. And was reportedly having numerous bloody stools. A code purple was called after the patient had just had a bloody stool with bright red blood and fainted. She was initially hypotensive and hypoxic but hemodynamically stabilized after 1 L of crystalloid bolus. Lab work revealed patient's hemoglobin had dropped to 6.7 and INR was actually elevated to 3.7. Decision was made to transfer patient to the ICU for further management. I spoke with Dr. Garcia with GI and patient is to undergo endoscopy in the morning. Plan to correct INR with FFP infusion and transfuse with RBCs. Currently patient is alert and oriented. She does report mild shortness of breath which she states is slightly worse than baseline. She also reports some abdominal tenderness with palpation but abdomen remains soft. She reports multiple bloody stools over the past few hours. She currently denies dizziness, headache, wheezing, labored work of breathing, chest pain, palpitations, nausea or vomiting. Allergies Allergy/AdvReac Type Severity Reaction Status Date / Time hydromorphone [From Dilaudid] Allergy Severe Verified 08/10/19 09:48 morphine Allergy Severe BREATHING Verified 08/10/19 09:48 DIFFICULTY oxycodone Allergy Severe Verified 08/10/19 09:48 iodine Allergy Mild Verified 08/10/19 09:48 aspartame Allergy Verified 08/10/19 16:21 stevioside [From Stevia] Allergy Verified 08/10/19 16:49 sucralose Allergy Verified 08/10/19 16:50 [From Splenda (sucralose)] Artificial sweeteners Allergy Unknown unknown Uncoded 08/10/19 09:48 Dust Allergy Unknown molds, Uncoded 08/10/19 09:48 cats, dogs and smoke Home Medications Home Medications Medication Instructions Recorded Confirmed Type biotin 1,000 mcg chewable tablet 1,000 mcg PO QDD 11/02/17 08/10/19 History cholecalciferol (vitamin D3) 25 1,000 units PO DAILY 11/02/17 08/10/19 History mcg (1,000 unit) capsule oxygen-air delivery systems #1 11/02/17 11/14/18 History warfarin 2.5 mg tablet 3.75 mg PO HS tab 11/02/17 08/10/19 History famotidine 40 mg tablet 40 mg PO HS PRN 11/14/18 08/10/19 History sitagliptin 25 mg tablet 25 mg PO QAM 11/14/18 08/10/19 History calcium carbonate [Calcium 600] 600 mg PO DAILY 08/10/19 08/10/19 History disopyramide phosphate [Norpace] 100 mg PO QAM 08/10/19 08/10/19 History magnesium oxide 250 mg PO DAILY 08/10/19 08/10/19 History pantoprazole [Protonix] 40 mg PO QAM 08/10/19 08/10/19 History verapamil 40 mg PO TID 08/10/19 08/10/19 History Patient History Medical History (Updated 08/10/19 @ 11:57 by Nicole Argueta PA-C) Chronic respiratory failure Closed head injury (Chronic) Contusion (Chronic) COPD (chronic obstructive pulmonary disease) (Chronic) Diabetes mellitus, type II Dizziness (Chronic) Facial contusion (Chronic) GERD (gastroesophageal reflux disease) (Chronic) Hyperglycemia (Chronic) Hypertrophic cardiomyopathy (Chronic) Multiple abrasions (Chronic) Nocturnal hypoxemia Osteoporosis (Chronic) Paroxysmal atrial fibrillation 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) SBO (small bowel obstruction) (Chronic) Scoliosis (Chronic) Weakness (Chronic) Surgical History History of (Chronic) S/P cataract surgery (Chronic) S/P lumbar spinal fusion (Chronic) Family History Father Lung disease Heart disease Mother Heart disease Social History (Updated 08/10/19 @ 11:52 by Nicole Argueta PA-C) Preferred Language: Chadian Communication Ability: Effective Reed Dipper Required: No Beliefs That Will Affect Care: None marital status: Current Living Situation: Spouse Feels Safe at Home: Yes Safety Concerns: Feels Safe At This Time Smoking Status: Never smoker Hx Alcohol Use: Yes Alcohol type: wine Alcohol Intake Frequency: Holidays/Special Occasions Hx Substance Use: No Childhood Exposure to Second-Hand Smoke: Yes Review of Systems Review of Systems: All systems reviewed & are unremarkable except as noted in HPI & below Physical Exam Constitutional: + thin and + frail appearing Eyes: PERRL, conjunctivae normal, anicteric sclerae ENMT: external ear and nose normal, oropharynx normal Neck: trachea midline, no thyromegaly Respiratory: normal respiratory effort, lungs clear to auscultation Cardiovascular: RRR, no murmur, no edema Vessels: no JVD Extremities: normal capillary refill; no edema Gastrointestinal (Abdomen): Abdomen distended but soft, hyperactive bowel sounds, generalized tenderness with palpation. Stool is loose with bright red blood. Skin: no rashes, warm and dry Neurologic: PERRL, EOMI, accommodation nl, no face palsy, no dysarthria Psychiatric: A+Ox3, euthymic affect Results & Data Results & Data ([facility]) Vital Signs (Past 12 Hours) Vital Signs Temp Pulse Pulse Resp BP BP BP 08/10/19 23:14 36.7 C 87 24 109/44 L 08/10/19 19:08 36.4 C L 76 22 133/72 08/10/19 18:45 84 08/10/19 15:23 36.5 C 72 18 118/63 08/10/19 13:17 98 H 08/10/19 12:32 36.8 C 18 144/77 H 08/10/19 11:48 84 18 138/69 08/10/19 11:39 84 18 138/69 Pulse Ox 08/10/19 23:14 100 08/10/19 19:08 99 08/10/19 18:45 08/10/19 15:23 100 08/10/19 13:17 08/10/19 12:32 98 08/10/19 11:48 99 08/10/19 11:39 99 Coding Level of Care Code Critical Care 1st 30-74 mins Diagnoses Supratherapeutic INR R79.1 Acute GI bleeding K92.2 Diabetes mellitus, type II E11.9 Chronic respiratory failure J96.10 Restrictive lung disease due to kyphoscoliosis J98.4; M41.9
[2019-08-11 00:17] LABS: Hematocrit (blood only) 18.1 % (37-47); Hemoglobin 5.7 g/dL (12.0-16.0)
[2019-08-11] MEDS ORDERED: SODIUM CHLORIDE 0.9% 250 ML IV PRN ×6 (00:17→11:26)
[2019-08-11] MEDS ORDERED: INSULIN ASPART 100 UNITS/ML 3 ML PEN SC SCH (00:24)
[2019-08-11] MEDS: INSULIN ASPART 100 UNITS/ML 3 ML PEN SC SCH (00:28)
[2019-08-11] MEDS ORDERED: INSULIN ASPART 100 UNITS/ML 3 ML PEN SC ONE (00:45)
[2019-08-11] MEDS: PANTOprazole 40 MG in DEXTROSE 5% 100 ML IV SCH ×3 (02:57→12:59)
[2019-08-11 03:49] LABS: Hematocrit (blood only) 14.5 % (37-47); Hemoglobin 4.8 g/dL (12.0-16.0)
[2019-08-11 03:58] LABS: INR 1.4 (0.9-1.1); Prothrombin Time 14.3 Seconds (9.0-12.0)
[2019-08-11] MEDS: ONDANSETRON INJ 2 MG/ML 2 ML VIAL IV PRN (04:03)
--- NOTE | 2019-08-11 07:00 | Electrocardiogram Report ---
Test Reason : Blood Pressure : / mmHG Vent. Rate : 106 BPM Atrial Rate : 106 BPM P-R Int : 146 ms QRS Dur : 078 ms QT Int : 314 ms P-R-T Axes : 063 042 084 degrees QTc Int : 417 ms Poor data quality, interpretation may be adversely affected Sinus tachycardia Possible Left atrial enlargement Borderline ECG When compared with ECG of 09-NOV-2014 18:27, Vent. rate has increased BY 45 BPM Confirmed by Matthew Villar ([id number]) on 08/11/2019 6:59:32 AM Referred By: SELF Confirmed By:Matthew Villar
[2019-08-11] MEDS ORDERED: CALCIUM GLUCONATE 10% 1,000 MG in SODIUM CHLORIDE 0.9% 50 ML IV STA (07:18)
[2019-08-11 07:26] LABS: BUN Creatinine Ratio 52.2 (10-20); Creatinine Clr Calc Pharmacy 93.3 ml/min; Est GFR (African American) 130.4; Est GFR (Non-African American) 112.5; Magnesium 1.5 mg/dl (1.8-2.4); Potassium 3.7 mmol/L (3.5-5.1)
[2019-08-11 07:27] LABS: Hematocrit (blood only) 21.2 % (37-47); Hemoglobin 7.3 g/dL (12.0-16.0); Mean Corpuscular Hemoglobin 29.2 pg (25-34); Mean Corpuscular Hgb Conc 34.4 g/dL (32-36); Mean Corpuscular Volume 84.8 fL (80-100); Platelet Count 79 K/uL (130-400); RDW Coefficient of Variation 13.7 % (11.5-14.5); RDW Standard Deviation 42.3 fL (36.4-46.3); White Blood Count 3.91 K/uL (4.8-10.8)
[2019-08-11 07:28] LABS: Immature Granulocytes # (auto) 0.01 K/uL (0.00-0.02); Immature Granulocytes % (auto) 0.3 %; Lymphocytes # (auto) 0.73 K/uL (1.2-3.4); Lymphocytes % (auto) 18.7 %; Monocytes # (auto) 0.41 K/uL (0.11-0.59); Monocytes % (auto) 10.5 %; Neutrophils # (auto) 2.76 K/uL (1.4-6.5); Neutrophils % (auto) 70.5 %; Platelet Estimate Decreased (Normal); RBC Morphology Unremarkable
--- NOTE | 2019-08-11 07:52 | Gastroenterology Progress Note ---
Date of Service August 11, 2019 Assessment & Plan (1) Acute GI bleeding: She is continue to have some GI output after initiation of colon prep. She still presents as a lower GI bleed, but given her decline in hemoglobin, as well as what appears to be a vasovagal episode endoscopic evaluation is necessary. On presentation when her INR was over 3 she only received vitamin K, which certainly would be contributory to continued bleeding in the state of blood thinning medications. She is now received FFP and that is corrected to below 1.5. Hemoglobin dropped to 6.7 from 10 on presentation, after 3 units it is up to greater than 7 right now. She has an additional unit to be given. Given her presentation we will plan on an upper endoscopy this morning, based upon those results we will proceed with a lower evaluation, she did receive some prep. As for now, continue to support her hemodynamics, continue IV PPI, repeat her INR. Further recommendations to follow endoscopic evaluations. Did discuss with her the risk and the benefits of the procedures, including the slight high risk of procedure given her urgent need and lack of prep if lower is pursued. Admission and Anticipated Discharge Date Admission Date: August 10, 2019 Subjective Overnight patient initiated a colon prep, several hours after initiating the prep patient was on the bedside commode and felt lightheaded. He lost consciousness but apparently became diaphoretic, pale and vital signs dropped, rebounding on their own without intervention. She was transferred to the ICU where her hemoglobin was rechecked and shown to be low, as well as an INR that was elevated. Her vital signs remained stable overnight with volume resuscitation. This morning she says that she feels much better she still has cramping in her belly, but no pain. No nausea vomiting and no signs of hematemesis or melena. She has no fevers and chills states she feels weak but overall she states that she feels better than last night. Review of Systems Review of Systems: All systems reviewed & are unremarkable except as noted in HPI & below Physical Exam Physical Exam: Quite thin, alert and oriented, talkative, no distress She has a very loud 3 out of 6 systolic murmur heard best at the right sternal border, mildly tachycardic but regular Lungs are mildly diminished in the bases, but otherwise clear throughout Abdomen is soft nontender nondistended normoactive sounds Thin extremities No jaundice or neurologic deficits Results & Data ([facility]) Vital Signs (Past 12 Hours) Vital Signs Temp Pulse Resp BP Pulse Ox 08/11/19 06:05 36.7 C 107 H 17 111/54 L 97 08/11/19 05:35 37.0 C 98 H 16 97/48 L 100 08/11/19 05:05 36.8 C 102 H 16 108/48 L 98 08/11/19 04:50 36.7 C 97 H 23 108/65 97 08/11/19 04:35 36.6 C 94 H 22 122/63 98 08/11/19 04:23 36.8 C 89 18 136/64 96 08/11/19 04:06 36.7 C 103 H 20 108/17 L 08/11/19 03:07 37.0 C 101 H 23 109/56 L 98 08/11/19 02:43 36.8 C 90 19 101/52 L 94 08/11/19 02:28 36.6 C 87 18 102/49 L 96 08/11/19 02:12 36.7 C 87 19 99/48 L 98 08/11/19 02:09 36.7 C 88 19 99/48 L 97 08/11/19 02:01 36.7 C 90 28 H 88/47 L 97 08/11/19 02:00 36.7 C 90 28 H 88/47 L 97 08/11/19 01:46 36.3 C L 96 H 26 H 103/49 L 92 08/11/19 01:30 36.7 C 88 24 102/40 L 99 08/11/19 01:25 36.7 C 85 24 94/42 L 99 08/11/19 01:18 36.7 C 84 20 96/51 L 100 08/11/19 01:03 36.6 C 94 H 20 107/46 L 99 08/11/19 00:45 36.9 C 83 25 H 91/47 L 100 08/11/19 00:40 36.6 C 90 24 85/41 L 100 08/11/19 00:17 36.7 C 86 16 84/45 L 100 08/11/19 00:00 36.6 C 82 19 73/44 L 100 08/10/19 23:50 81 19 87/44 L 100 08/10/19 23:47 36.6 C 81 19 87/44 L 100 08/10/19 23:40 81 23 84/51 L 100 08/10/19 23:32 36.8 C 86 23 86/43 L 100 08/10/19 23:31 36.6 C 83 24 86/43 L 100 08/10/19 23:30 82 25 H 86/43 L 100 08/10/19 23:15 87 21 87/53 L 100 08/10/19 23:14 36.7 C 87 24 109/44 L 100 08/10/19 23:09 87 24 109/44 L 91 08/10/19 23:00 90 29 H 106/75 96 08/10/19 22:45 87 24 94 08/10/19 22:35 36.6 C 87 24 86/47 L 90
--- NOTE | 2019-08-11 08:04 | Anesthesiology Consultation ---
Date of Service August 11, 2019 Assessment & Plan (1) Encounter for pre-operative examination: Chart Review Chart Review: Acceptable Risk for Surgery (urgent procedure due to ongoing blood loss) History Surgery Operation Date: 08/11/19 07:20 Proposed Procedures p Colonoscopy Dr Peter Green Height/Weight Height: 4 ft 10.75 in Weight: 35.8 kg Allergies Allergy/AdvReac Type Severity Reaction Status Date / Time hydromorphone [From Dilaudid] Allergy Severe Unknown Verified 08/11/19 03:55 morphine Allergy Severe BREATHING Verified 08/10/19 09:48 DIFFICULTY oxycodone Allergy Severe Unknown Verified 08/11/19 03:55 iodine Allergy Mild Unknown Verified 08/11/19 03:55 aspartame Allergy Unknown Verified 08/11/19 03:55 stevioside [From Stevia] Allergy Unknown Verified 08/11/19 03:55 sucralose Allergy Unknown Verified 08/11/19 03:55 [From Splenda (sucralose)] Medications Home Medications Medication Instructions Recorded Confirmed Last Taken biotin 1,000 mcg chewable tablet 1,000 mcg PO QDD 11/02/17 08/10/19 08/09/19 cholecalciferol (vitamin D3) 25 1,000 units PO DAILY 11/02/17 08/10/19 08/08/19 mcg (1,000 unit) capsule oxygen-air delivery systems #1 11/02/17 11/14/18 Unknown warfarin 2.5 mg tablet 3.75 mg PO HS tab 11/02/17 08/10/19 08/09/19 famotidine 40 mg tablet 40 mg PO HS PRN 11/14/18 08/10/19 08/08/19 sitagliptin 25 mg tablet 25 mg PO QAM 11/14/18 08/10/19 08/09/19 calcium carbonate [Calcium 600] 600 mg PO DAILY 08/10/19 08/10/19 08/09/19 disopyramide phosphate [Norpace] 100 mg PO QAM 08/10/19 08/10/19 08/09/19 magnesium oxide 250 mg PO DAILY 08/10/19 08/10/19 08/09/19 pantoprazole [Protonix] 40 mg PO QAM 08/10/19 08/10/19 08/09/19 verapamil 40 mg PO TID 08/10/19 08/10/19 08/09/19 Active Medications Generic Name Dose Route Start Last Admin Trade Name Freq PRN Reason Stop Dose Admin Pantoprazole Sodium 40 mg/ 100 mls @ 20 mls/hr 08/10/19 12:00 08/11/19 02:57 Dextrose IV 09/09/19 11:59 8 mg/hr Q5H CODY 20 mls/hr Administration 8 MG/HR Sodium Chloride 1,000 mls @ 60 mls/hr 08/10/19 23:45 08/11/19 06:05 Nss 1000ml IV 09/09/19 23:44 60 mls/hr .[id number] CODY Infusion Insulin Aspart 0 units 08/11/19 00:24 08/11/19 06:34 Novolog Flexpen SC 09/10/19 00:00 Not Given Q6 CODY Ondansetron HCl 4 mg 08/10/19 12:32 08/11/19 04:03 Zofran IV 09/09/19 12:31 4 mg Q6H PRN Administration Nausea Past Medical History Medical History (Updated 08/11/19 @ 08:07 by Jose Lu MD) Chronic respiratory failure Closed head injury (Chronic) Contusion (Chronic) COPD (chronic obstructive pulmonary disease) (Chronic) Diabetes mellitus, type II Dizziness (Chronic) Facial contusion (Chronic) GERD (gastroesophageal reflux disease) (Chronic) Hyperglycemia (Chronic) Hypertrophic cardiomyopathy (Chronic) Left ventricular outflow tract obstruction Multiple abrasions (Chronic) Nocturnal hypoxemia Osteoporosis (Chronic) Paroxysmal atrial fibrillation 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) SBO (small bowel obstruction) (Chronic) Scoliosis (Chronic) Weakness (Chronic) Past Family History Family History Father Lung disease Heart disease Mother Heart disease Past Surgical History Surgical History History of (Chronic) S/P cataract surgery (Chronic) S/P lumbar spinal fusion (Chronic) Social History Smoking Status: Never smoker Hx Alcohol Use: Yes Alcohol type: wine alcohol intake frequency: 0-2 drinks per day Alcohol Intake Frequency Comment: A half glass of wine with dinner Hx Substance Use: No substance use type: does not use Physical Exam Vital Signs Last Vital Signs Temp 36.9 C 08/11/19 07:57 Pulse 104 H 08/11/19 07:57 Resp 18 08/11/19 07:57 BP 88/50 L 08/11/19 07:57 Pulse Ox 100 08/11/19 07:57 Testing Laboratory Results 08/11/19 06:42 08/11/19 06:42 PT 14.3 Seconds (9.0-12.0) H 08/11/19 03:28 INR 1.4 (0.9-1.1) H 08/11/19 03:28 APTT 46.2 Seconds (21.0-31.0) H* 08/10/19 22:13 Blood Type O Positive 08/10/19 08:54 Antibody Screen NEGATIVE 08/10/19 08:54 08/11/19 08/11/19 08/10/19 06:13 00:05 20:25 POC Glucose 165 H 209 H 243 H Electrocardiogram Date: 08/10/19 Findings: + ST @ (106) Echocardiogram Date: 03/20/14 EF: 65-70% LV Function: normal Valvular Disease: + (mild) and + pertinent finding (outflow tract obstruction)
[2019-08-11 08:21] LABS: Fibrinogen 166 mg/dl (184-400)
[2019-08-11 08:34] LABS: INR 1.5 (0.9-1.1); Prothrombin Time 15.8 Seconds (9.0-12.0)
--- NOTE | 2019-08-11 08:40 | Critical Care Progress Note ---
Date of Service August 11, 2019 Assessment & Plan (1) Acute GI bleeding: Impression: 78-year-old female anticoagulated on Coumadin for atrial fibrillation presenting with acute GI bleed. She has known diverticular disease based on CT abdomen from 08. She developed symptomatic anemia with continued blood loss and elevated INR and was transferred to the ICU late last evening where she received additional resuscitation Recommendations: 1. Acute GI bleed. Suspect lower source. Discussed with GI today. Plan is to take patient for colonoscopy. If definitive therapy can be conducted here can remain here. But if the patient requires interventional radiology for embolization, surgical intervention, or if this appears to be small bowel or upper bleed she may require transfer to a tertiary facility. Continue Protonix for now although this does not appear to be an upper GI bleed. Maintain 2 large-bore IVs at all time. Holding most of her outpatient p.o. medications pending endoscopy. 2. Coagulopathy: Patient anticoagulated on Coumadin for atrial fibrillation. She received FFP and INR is below 1.5. Platelets have dropped but do not think she requires platelets currently. Her fibrinogen is below 200 and she will get additional cryoprecipitate. Calcium is being repleted. Additional blood products are being transfused and will try and maintain her hemoglobin below given the active ongoing bleeding. 3. Presyncope: Secondary to symptomatic anemia and hypovolemia. Continue to follow. 4. Restrictive lung disease with chronic hypoxemic respiratory failure: Continue supplemental oxygen. She is using her home APAP nightly. 5. Pancytopenia: Labs this morning showed decreased white cell, decrease hemoglobin hematocrit, and low platelet count. Do not suspect a marrow issue as her values from earlier did not demonstrate all 3 lines depressed. 6. Hyperglycemia: Suspect reactive however we will continue to follow and continue ICU hyperglycemic protocol. 7. History of moderate to severe aortic stenosis by report. Echocardiogram not available. Additional recommendations and ultimate disposition will depend on findings from endoscopy. Discussed with patient and ICU nurse at bedside (2) Supratherapeutic INR: (3) Anemia: (4) Abdominal pain: Admission and Anticipated Discharge Date Admission Date: August 10, 2019 Subjective Patient seen and examined. EMR reviewed. Discussed with critical care ERIKA on several occasions during the night. The patient this morning states that she is experiencing some lower pelvic discomfort radiating across midline. No nausea or vomiting. She has not sat up so cannot comment on any additional syncope or presyncope. She did undergo a prep. She continues to have jose melena. Physical Exam Constitutional: + thin; no acute distress and not ill appearing Neck: trachea midline, no thyromegaly Respiratory: normal respiratory effort, lungs clear to auscultation Cardiovascular: Rate/Rhythm: + tachycardic Heart Sounds: normal S1, normal S2 and + murmur Gastrointestinal (Abdomen): Mild distention. Bowel sounds are present. She is tender to palpation in the bilateral lower quadrants. No rebound or guarding Musculoskeletal: Extremities: extremities normal to inspection Skin: no rashes, warm and dry Neurologic: Nonfocal exam Lymphatic: no cervical lymphadenopathy Results & Data Results & Data ([facility]) Vital Signs (Past 12 Hours) Vital Signs Temp Pulse Resp BP Pulse Ox 08/11/19 08:13 36.8 C 103 H 19 122/60 100 08/11/19 07:57 36.9 C 104 H 18 88/50 L 100 08/11/19 06:05 36.7 C 107 H 17 111/54 L 97 08/11/19 05:35 37.0 C 98 H 16 97/48 L 100 08/11/19 05:05 36.8 C 102 H 16 108/48 L 98 08/11/19 04:50 36.7 C 97 H 23 108/65 97 08/11/19 04:35 36.6 C 94 H 22 122/63 98 08/11/19 04:23 36.8 C 89 18 136/64 96 08/11/19 04:06 36.7 C 103 H 20 108/17 L 08/11/19 03:07 37.0 C 101 H 23 109/56 L 98 08/11/19 02:43 36.8 C 90 19 101/52 L 94 08/11/19 02:28 36.6 C 87 18 102/49 L 96 08/11/19 02:12 36.7 C 87 19 99/48 L 98 08/11/19 02:09 36.7 C 88 19 99/48 L 97 08/11/19 02:01 36.7 C 90 28 H 88/47 L 97 08/11/19 02:00 36.7 C 90 28 H 88/47 L 97 08/11/19 01:46 36.3 C L 96 H 26 H 103/49 L 92 08/11/19 01:30 36.7 C 88 24 102/40 L 99 08/11/19 01:25 36.7 C 85 24 94/42 L 99 08/11/19 01:18 36.7 C 84 20 96/51 L 100 08/11/19 01:03 36.6 C 94 H 20 107/46 L 99 08/11/19 00:45 36.9 C 83 25 H 91/47 L 100 08/11/19 00:40 36.6 C 90 24 85/41 L 100 08/11/19 00:17 36.7 C 86 16 84/45 L 100 08/11/19 00:00 36.6 C 82 19 73/44 L 100 08/10/19 23:50 81 19 87/44 L 100 08/10/19 23:47 36.6 C 81 19 87/44 L 100 08/10/19 23:40 81 23 84/51 L 100 08/10/19 23:32 36.8 C 86 23 86/43 L 100 08/10/19 23:31 36.6 C 83 24 86/43 L 100 08/10/19 23:30 82 25 H 86/43 L 100 08/10/19 23:15 87 21 87/53 L 100 08/10/19 23:14 36.7 C 87 24 109/44 L 100 08/10/19 23:09 87 24 109/44 L 91 08/10/19 23:00 90 29 H 106/75 96 08/10/19 22:45 87 24 94 08/10/19 22:35 36.6 C 87 24 86/47 L 90 Laboratory Results 08/11/19 06:42 08/11/19 06:42 Fibrinogen 166 INR 1.4 Coding Level of Care Code Critical Care 1st 30-74 mins Diagnoses Acute GI bleeding K92.2 Supratherapeutic INR R79.1 Anemia D64.9 Abdominal pain R10.9 Time Spent (min) 42 Comment 42 minutes critical care time spent evaluating managing and stabilizing patient with life threatening bleeding issues.
[2019-08-11] MEDS ORDERED: MAGNESIUM SULFATE / D5W 1 GM/100 ML BAG IV ONE (09:19)
--- NOTE | 2019-08-11 10:48 | GI REPORT ---
Patient Name: Samantha Sinha Procedure Date: 08/11/2019 9:08 AM Date of : 1940 Admit Type: Inpatient Age: 78 Gender: Female Attending MD: Jonn Green MD Procedure: Upper GI endoscopy Providers: Jonn Green MD, Teresa Wolfe MD Referring MD: Octaviano Upton Indications: Hematochezia Medicines: Monitored Anesthesia Care Complications: No immediate complications. Estimated blood loss: None. Estimated Blood Loss: Estimated blood loss: none. Procedure: Pre-Anesthesia Assessment: - Pre-Anesthesia Assessment: - Prior to the procedure, a History and Physical was performed, and patient medications, allergies and sensitivities were reviewed. The patient's tolerance of previous anesthesia was reviewed. Please see Lola [facility]indola for complete details. - The risks and benefits of the procedure and the sedation options and risks were discussed with the patient. All questions were answered and informed consent was obtained. - Patient identification and proposed procedure were verified prior to the procedure by the physician and the nurse. The procedure was verified in the pre-procedure area in the procedure room. After obtaining informed consent, the endoscope was passed carefully and meticuously under direct vision and only advanced when the lumen was clearly identified, C02 insuflation was utilized throughout the entirity of the procedure. Throughout the procedure, the patient's blood pressure, pulse, and oxygen saturations were monitored continuously. After obtaining informed consent, the endoscope was passed under direct vision. Throughout the procedure, the patient's blood pressure, pulse, and oxygen saturations were monitored continuously. The Endoscope was introduced through the mouth, and advanced to the fourth part of duodenum. The upper GI endoscopy was accomplished without difficulty. The patient tolerated the procedure well. Findings: The examined esophagus was normal. The entire examined stomach was normal. The first portion of the duodenum, second portion of the duodenum, third portion of the duodenum, fourth portion of the duodenum and examined duodenum were normal. Impression: - Normal esophagus. - Normal stomach. - Normal first portion of the duodenum, second portion of the duodenum, third portion of the duodenum, fourth portion of the duodenum and examined duodenum. - No specimens collected. Recommendation: - Perform a colonoscopy today. - No signs of upper GI bleeding. Jonn Green MD 08/11/2019 10:47:27 AM This report has been signed electronically. Teresa Wolfe MD Note Initiated On: 08/11/2019 9:08 AM Number of Addenda: 0 I attest to the content of the Intraoperative Record and orders documented therein, exceptions below {[id number]}
--- NOTE | 2019-08-11 10:53 | GI REPORT ---
Patient Name: Samantha Sinha Procedure Date: 08/11/2019 9:58 AM Date of : 1940 Admit Type: Inpatient Age: 78 Gender: Female Attending MD: Jonn Green MD Procedure: Colonoscopy Providers: Jonn Green MD, Teresa Wolfe MD Referring MD: Octaviano Upton Indications: Hematochezia Medicines: Monitored Anesthesia Care Complications: No immediate complications. Estimated blood loss: None. Estimated Blood Loss: Estimated blood loss: none. Procedure: Pre-Anesthesia Assessment: - Pre-Anesthesia Assessment: - Prior to the procedure, a History and Physical was performed, and patient medications, allergies and sensitivities were reviewed. The patient's tolerance of previous anesthesia was reviewed. Please see [facility] for complete details. - The risks and benefits of the procedure and the sedation options and risks were discussed with the patient. All questions were answered and informed consent was obtained. - Patient identification and proposed procedure were verified prior to the procedure by the physician and the nurse. The procedure was verified in the pre-procedure area in the procedure room. After obtaining informed consent, the endoscope was passed carefully and meticuously under direct vision and only advanced when the lumen was clearly identified, C02 insuflation was utilized throughout the entirity of the procedure. Throughout the procedure, the patient's blood pressure, pulse, and oxygen saturations were monitored continuously. After I obtained informed consent, the scope was passed under direct vision. Throughout the procedure, the patient's blood pressure, pulse, and oxygen saturations were monitored continuously. The Endoscope was introduced through the anus and advanced to the cecum, identified by appendiceal orifice and ileocecal valve. The scope was introduced through the and advanced to. The colonoscopy was performed without difficulty. The patient tolerated the procedure well. The quality of the bowel preparation was poor. Findings: Hematin, red, and clotted blood (altered blood/fwbdsu-fhbeam-bbtf material) was found in the entire colon. Multiple small and large-mouthed diverticula were found in the sigmoid colon, descending colon and ascending colon. The distal ileum contained hematin (altered blood/phybyo-ooeukp-rnby material). No active bleeding was identified after very close and meticulous irrigation and washing. Impression: - Preparation of the colon was poor. - No active bleeding identified, prior evidence of bleeding noted. - No specimens collected. Recommendation: - Return patient to ICU for ongoing care. - Transfer to Tertiary Center with IR capabilities. Continue to support hemodynamics. Jonn Green MD 08/11/2019 10:52:48 AM This report has been signed electronically. Teresa Wolfe MD Note Initiated On: 08/11/2019 9:58 AM Number of Addenda: 0 I attest to the content of the Intraoperative Record and orders documented therein, exceptions below {[id number]}
[2019-08-11 11:22] LABS: Hematocrit (blood only) 20.2 % (37-47); Hemoglobin 6.8 g/dL (12.0-16.0)
--- NOTE | 2019-08-11 11:40 | Hospitalist Progress Note ---
Date of Service August 11, 2019 Assessment & Plan (1) Rectal bleeding: (2) Supratherapeutic INR: Symptomatic anemia 78 y/o F with PMH paroxysmal atrial fibrillation on Coumadin, hypertrophic obstructive cardiomyopathy, chronic respiratory failure on 2 L oxygen secondary to scoliosis, GERD presented to ER with complaint abdominal cramping this morning with explosive loose stool with bright red blood. INR on admission 3.3 Hbg dropped to 4.8 CT abd/pelvis showed No evidence of bowel obstruction. No evidence of free air No evidence of acute appendicitis. No evidence of acute diverticulitis Received so far 5 units PRBC, 3 units FFP and 1 unit Cryo Most recent repeat hgb 6.8 Colonoscopy done today showed : Hematin, red, and clotted blood (altered blood/xclcow-ldmswl-pvcg material) was found in the entire colon. Multiple small and large-mouthed diverticula were found in the sigmoid colon, descending colon and ascending colon. The distal ileum contained hematin (altered blood/oquhrw-bojzzg-dyre material). No active bleeding was identified after very close and meticulous irrigation and washing. EGD done today showed : Normal esophagus. Normal stomach. Normal duodenum Case discussed with GI that recommended to transfer to tertiary care facility for IR intervention Will give an additional 2 units FFP and 2 units PRBC Continue PPI drip Vit K given on admission and INR 1.5 today and continue to hold coumadin was notified by Gastro Dr. Green and agreed to transfer to [place] Case discussed with [facility] hospitalist in [place] Dr. Cedeno who agreed with the transfer Continue monitor H/H Will keep NPO for now (3) Hypomagnesemia: Magnesium: 1.5 today Mag replaced Continue monitor Mg level (4) Paroxysmal atrial fibrillation: Rate has been btw 80's to 100's INR on admission 3.3 Received Vit K and INR 1.5 today Continue to hold coumadin due to the GI bleed (5) Diabetes mellitus, type II: A1c: 6.4 on 08/01/2019 Continue to hold oral DM Continue monitor BS (6) Chronic respiratory failure: (7) Nocturnal hypoxemia: Restrictive lung disease secondary to scoliosis. Continue chronic 2L oxygen via [place] [facility] (8) Hypertrophic cardiomyopathy: History echo 2017: EF: 70%, grade 1 diastolic dysfunction, mild LVH, left ventricular outflow tract obstruction, mild mitral regurgitation, mild aortic stenosis Continue Norpace (9) GERD (gastroesophageal reflux disease): Continue PPI drip Right adnexal cyst CT pelvis/abd showed 42 mm cystic right adnexal lesion, likely ovarian. Recommended pelvis u/s DVT Prophylaxis Coumadin on hold SCDs due to GI bleeding DNR/DNI Disposition Will transfer to [facility] for possible IR Interventional Accepting hospitalist physician Dr. Cedeno Admission and Anticipated Discharge Date Admission Date: August 10, 2019 Subjective Pt was seen and examined Lying in bed with no distress Pt said that she continue to have large bloody bowel movement She said that she feels very weak Denies any chest pain, palpitation, dizziness and SOB Physical Exam Physical Exam: General- No acute distress Head- atraumatic Eyes- PERRL, EOMI, ENT- oropharynx clear Neck- supple, no JVD Lungs- clear to auscultation Heart- +tachycardia +murmur Abdomen- normal bowel sounds, soft, nontender Extremities- no calf tenderness Neuro- alert, oriented x 3; PERRL, EOMI; no facial palsy; no dysarthria Skin- warm & dry Results & Data Results & Data ([facility]) Vital Signs (Past 12 Hours) Vital Signs Temp Pulse Pulse Resp BP BP Pulse Ox 08/11/19 11:15 36.5 C 94 H 24 104/54 L 100 08/11/19 11:05 95 H 16 113/70 99 08/11/19 10:55 98 H 20 109/51 L 97 08/11/19 10:45 36.3 C L 103 H 20 127/67 96 08/11/19 09:38 36.9 C 98 H 16 109/56 L 98 08/11/19 09:12 36.9 C 94 H 16 126/73 99 08/11/19 08:57 36.9 C 114 H 19 122/61 99 08/11/19 08:41 36.8 C 98 H 17 123/56 L 100 08/11/19 08:30 36.8 C 97 H 19 122/61 99 08/11/19 08:28 36.9 C 98 H 18 103/66 99 08/11/19 08:13 36.8 C 103 H 19 122/60 100 08/11/19 07:57 36.9 C 104 H 18 88/50 L 100 08/11/19 06:05 36.7 C 107 H 17 111/54 L 97 08/11/19 05:35 37.0 C 98 H 16 97/48 L 100 08/11/19 05:05 36.8 C 102 H 16 108/48 L 98 08/11/19 04:50 36.7 C 97 H 23 108/65 97 08/11/19 04:35 36.6 C 94 H 22 122/63 98 08/11/19 04:23 36.8 C 89 18 136/64 96 08/11/19 04:06 36.7 C 103 H 20 108/17 L 08/11/19 03:07 37.0 C 101 H 23 109/56 L 98 08/11/19 02:43 36.8 C 90 19 101/52 L 94 08/11/19 02:28 36.6 C 87 18 102/49 L 96 08/11/19 02:12 36.7 C 87 19 99/48 L 98 08/11/19 02:09 36.7 C 88 19 99/48 L 97 08/11/19 02:01 36.7 C 90 28 H 88/47 L 97 08/11/19 02:00 36.7 C 90 28 H 88/47 L 97 08/11/19 01:46 36.3 C L 96 H 26 H 103/49 L 92 08/11/19 01:30 36.7 C 88 24 102/40 L 99 08/11/19 01:25 36.7 C 85 24 94/42 L 99 08/11/19 01:18 36.7 C 84 20 96/51 L 100 08/11/19 01:03 36.6 C 94 H 20 107/46 L 99 08/11/19 00:45 36.9 C 83 25 H 91/47 L 100 08/11/19 00:40 36.6 C 90 24 85/41 L 100 08/11/19 00:17 36.7 C 86 16 84/45 L 100 08/11/19 00:00 36.6 C 82 19 73/44 L 100 08/10/19 23:50 81 19 87/44 L 100 08/10/19 23:47 36.6 C 81 19 87/44 L 100 08/10/19 23:40 81 23 84/51 L 100 08/10/19 23:32 36.8 C 86 23 86/43 L 100 08/10/19 23:31 36.6 C 83 24 86/43 L 100
--- NOTE | 2019-08-11 11:41 | Gastroenterology Progress Note ---
Date of Service August 11, 2019 Assessment & Plan (1) Acute GI bleeding: Transfer to tertiary center for possible IR intervention if necessary. Spoke to and aware. Hospitalist and ICU MD making arrangements. Call with questions. Admission and Anticipated Discharge Date Admission Date: August 10, 2019 Subjective Patient underwent EGD/Colonoscopy today. procedures were performed without issue or difficulty and patient tolerated well. No signs of bleeding on EGD On Colonoscopy, blood in colon, no active bleed. However fernandes-colonic diverticulosis. TI had some old appearing blood in it ? backwash vs small bowel source. Physical Exam Physical Exam: looks well post procedure, abd soft, nt,nd. VSS Results & Data ([facility]) Vital Signs (Past 12 Hours) Vital Signs Temp Pulse Pulse Resp BP BP Pulse Ox 08/11/19 11:15 36.5 C 94 H 24 104/54 L 100 08/11/19 11:05 95 H 16 113/70 99 08/11/19 10:55 98 H 20 109/51 L 97 08/11/19 10:45 36.3 C L 103 H 20 127/67 96 08/11/19 09:38 36.9 C 98 H 16 109/56 L 98 08/11/19 09:12 36.9 C 94 H 16 126/73 99 08/11/19 08:57 36.9 C 114 H 19 122/61 99 08/11/19 08:41 36.8 C 98 H 17 123/56 L 100 08/11/19 08:30 36.8 C 97 H 19 122/61 99 08/11/19 08:28 36.9 C 98 H 18 103/66 99 08/11/19 08:13 36.8 C 103 H 19 122/60 100 08/11/19 07:57 36.9 C 104 H 18 88/50 L 100 08/11/19 06:05 36.7 C 107 H 17 111/54 L 97 08/11/19 05:35 37.0 C 98 H 16 97/48 L 100 08/11/19 05:05 36.8 C 102 H 16 108/48 L 98 08/11/19 04:50 36.7 C 97 H 23 108/65 97 08/11/19 04:35 36.6 C 94 H 22 122/63 98 08/11/19 04:23 36.8 C 89 18 136/64 96 08/11/19 04:06 36.7 C 103 H 20 108/17 L 08/11/19 03:07 37.0 C 101 H 23 109/56 L 98 08/11/19 02:43 36.8 C 90 19 101/52 L 94 08/11/19 02:28 36.6 C 87 18 102/49 L 96 08/11/19 02:12 36.7 C 87 19 99/48 L 98 08/11/19 02:09 36.7 C 88 19 99/48 L 97 08/11/19 02:01 36.7 C 90 28 H 88/47 L 97 08/11/19 02:00 36.7 C 90 28 H 88/47 L 97 08/11/19 01:46 36.3 C L 96 H 26 H 103/49 L 92 08/11/19 01:30 36.7 C 88 24 102/40 L 99 08/11/19 01:25 36.7 C 85 24 94/42 L 99 08/11/19 01:18 36.7 C 84 20 96/51 L 100 08/11/19 01:03 36.6 C 94 H 20 107/46 L 99 08/11/19 00:45 36.9 C 83 25 H 91/47 L 100 08/11/19 00:40 36.6 C 90 24 85/41 L 100 08/11/19 00:17 36.7 C 86 16 84/45 L 100 08/11/19 00:00 36.6 C 82 19 73/44 L 100 08/10/19 23:50 81 19 87/44 L 100 08/10/19 23:47 36.6 C 81 19 87/44 L 100 08/10/19 23:40 81 23 84/51 L 100
--- NOTE | 2019-08-11 12:02 | Anesthesiology Progress Note ---
Date of Service August 11, 2019 Anesthesia Post Procedure Vital Signs Vital Signs: Temp Pulse Pulse Resp BP BP BP 08/11/19 11:47 36.2 C L 101 H 21 104/55 L 08/11/19 11:40 36.1 C L 95 H 20 99/57 L 08/11/19 11:15 36.5 C 94 H 24 104/54 L 08/11/19 11:05 95 H 16 113/70 08/11/19 10:55 98 H 20 109/51 L 08/11/19 10:45 36.3 C L 103 H 20 127/67 08/11/19 09:38 36.9 C 98 H 16 109/56 L 08/11/19 09:12 36.9 C 94 H 16 126/73 08/11/19 08:57 36.9 C 114 H 19 122/61 08/11/19 08:41 36.8 C 98 H 17 123/56 L 08/11/19 08:30 36.8 C 97 H 19 122/61 08/11/19 08:28 36.9 C 98 H 18 103/66 08/11/19 08:13 36.8 C 103 H 19 122/60 08/11/19 07:57 36.9 C 104 H 18 88/50 L 08/11/19 06:05 36.7 C 107 H 17 111/54 L 08/11/19 05:35 37.0 C 98 H 16 97/48 L 08/11/19 05:05 36.8 C 102 H 16 108/48 L 08/11/19 04:50 36.7 C 97 H 23 108/65 08/11/19 04:35 36.6 C 94 H 22 122/63 08/11/19 04:23 36.8 C 89 18 136/64 08/11/19 04:06 36.7 C 103 H 20 108/17 L 08/11/19 03:07 37.0 C 101 H 23 109/56 L 08/11/19 02:43 36.8 C 90 19 101/52 L 08/11/19 02:28 36.6 C 87 18 102/49 L 08/11/19 02:12 36.7 C 87 19 99/48 L 08/11/19 02:09 36.7 C 88 19 99/48 L 08/11/19 02:01 36.7 C 90 28 H 88/47 L 08/11/19 02:00 36.7 C 90 28 H 88/47 L 08/11/19 01:46 36.3 C L 96 H 26 H 103/49 L 08/11/19 01:30 36.7 C 88 24 102/40 L 08/11/19 01:25 36.7 C 85 24 94/42 L 08/11/19 01:18 36.7 C 84 20 96/51 L 08/11/19 01:03 36.6 C 94 H 20 107/46 L 08/11/19 00:45 36.9 C 83 25 H 91/47 L 08/11/19 00:40 36.6 C 90 24 85/41 L 08/11/19 00:17 36.7 C 86 16 84/45 L 08/11/19 00:00 36.6 C 82 19 73/44 L 08/10/19 23:50 81 19 87/44 L 08/10/19 23:47 36.6 C 81 19 87/44 L 08/10/19 23:40 81 23 84/51 L 08/10/19 23:32 36.8 C 86 23 86/43 L 08/10/19 23:31 36.6 C 83 24 86/43 L 08/10/19 23:30 82 25 H 86/43 L 08/10/19 23:15 87 21 87/53 L 08/10/19 23:14 36.7 C 87 24 109/44 L 08/10/19 23:09 87 24 109/44 L 08/10/19 23:00 90 29 H 106/75 08/10/19 22:45 87 24 08/10/19 22:35 36.6 C 87 24 86/47 L 08/10/19 19:08 36.4 C L 76 22 133/72 08/10/19 18:45 84 08/10/19 15:23 36.5 C 72 18 118/63 08/10/19 13:17 98 H 08/10/19 12:32 36.8 C 18 144/77 H Pulse Ox 08/11/19 11:47 93 08/11/19 11:40 97 08/11/19 11:15 100 08/11/19 11:05 99 08/11/19 10:55 97 08/11/19 10:45 96 08/11/19 09:38 98 08/11/19 09:12 99 08/11/19 08:57 99 08/11/19 08:41 100 08/11/19 08:30 99 08/11/19 08:28 99 08/11/19 08:13 100 08/11/19 07:57 100 08/11/19 06:05 97 08/11/19 05:35 100 08/11/19 05:05 98 08/11/19 04:50 97 08/11/19 04:35 98 08/11/19 04:23 96 08/11/19 04:06 08/11/19 03:07 98 08/11/19 02:43 94 08/11/19 02:28 96 08/11/19 02:12 98 08/11/19 02:09 97 08/11/19 02:01 97 08/11/19 02:00 97 08/11/19 01:46 92 08/11/19 01:30 99 08/11/19 01:25 99 08/11/19 01:18 100 08/11/19 01:03 99 08/11/19 00:45 100 08/11/19 00:40 100 08/11/19 00:17 100 08/11/19 00:00 100 08/10/19 23:50 100 08/10/19 23:47 100 08/10/19 23:40 100 08/10/19 23:32 100 08/10/19 23:31 100 08/10/19 23:30 100 08/10/19 23:15 100 08/10/19 23:14 100 08/10/19 23:09 91 08/10/19 23:00 96 08/10/19 22:45 94 08/10/19 22:35 90 08/10/19 19:08 99 08/10/19 18:45 08/10/19 15:23 100 08/10/19 13:17 08/10/19 12:32 98 Pain Intensity Abdomen: Pain Intensity: 0 Transfer of Care Handoff Completed per policy Notes Mental Status: alert / awake / arousable Patient Amnestic to Procedure: Yes Nausea / Vomiting: adequately controlled Pain: adequately controlled Airway Patency, RR, SpO2: stable & adequate BP & HR: stable & adequate Hydration State: stable & adequate Anesthetic Complications: no major complications apparent
--- NOTE | 2019-08-11 12:41 | Discharge Summary ---
Date of Service August 11, 2019 Admission HPI Per Admitting Provider Pt is 78 y/o F with PMH paroxysmal atrial fibrillation on Coumadin, hypertrophic obstructive cardiomyopathy, chronic respiratory failure on 2 L oxygen secondary to scoliosis, GERD presented to ER with complaint of rectal bleeding. Patient states woke up this morning at 5 AM with abdominal cramping followed by explosive loose stool with bright red blood. Patient states blood covered nightgown and toilet. Denies any further abdominal pain. Patient states after episode felt dizzy, denies syncope. Last ate and drank at 9 PM last night. Did not take morning meds. Denies history of EGD or colonoscopy in past. Patient reports mother with history of colon cancer age 85. pt brings monthly log of her INR's since 01/2019 and have been from 2.1-2.8. Denies fever/chills, diaphoresis, N/V, HARVEY, vision changes, neck pain, CP, SOB, orthopnea, palpitations, cough, sore throat, choking, otalgia, rhinorrhea, paresthesias, weakness, extremity weakness, extremity edema, rashes, urinary symptoms. Denies NSAID use. History CT abdomen pelvis in 2007: Mild diverticulosis, mild wall thickening descending and rectosigmoid colon. Patient reports was to follow-up with GI however never did. Denies any prior history of rectal bleeding or melena. Admission Exam Per Admitting Provider General: no distress, thin elderly female Head: normocephalic, atraumatic Eyes: PERRL, EOM's intact, conjunctiva non-injected, anicteric ENT: normal inspection external ears, nose, mucous membranes moist Neck: supple, trachea midline Lungs: clear, no respiratory distress CV: RRR, +systolic murmur, no pretibial edema Abd: normal BS, soft, non-tender to palpation Back: +scoliosis Ext: no cyanosis, no calf tenderness Neuro: A&O x 3, no focal deficits noted, normal affect Skin: warm, dry Principal Diagnosis Acute GI bledding Supratherapeutic INR Symptomatic anemia Hypomagnesemia Paroxysmal atrial fibrillation Diabetes mellitus, type II Chronic respiratory failure Nocturnal hypoxemia Restrictive lung disease secondary to scoliosis. Continue chronic 2L oxygen via [place] Hypertrophic cardiomyopathy: GERD (gastroesophageal reflux disease): Right adnexal cyst Discharge Exam General- No acute distress Head- atraumatic Eyes- PERRL, EOMI, ENT- oropharynx clear Neck- supple, no JVD Lungs- clear to auscultation Heart- +tachycardia +murmur Abdomen- normal bowel sounds, soft, nontender Extremities- no calf tenderness Neuro- alert, oriented x 3; PERRL, EOMI; no facial palsy; no dysarthria Skin- warm & dry Discharge Data Allergies Allergy/AdvReac Type Severity Reaction Status Date / Time hydromorphone [From Dilaudid] Allergy Severe Unknown Verified 08/11/19 03:55 morphine Allergy Severe BREATHING Verified 08/10/19 09:48 DIFFICULTY oxycodone Allergy Severe Unknown Verified 08/11/19 03:55 iodine Allergy Mild Unknown Verified 08/11/19 03:55 aspartame Allergy Unknown Verified 08/11/19 03:55 stevioside [From Stevia] Allergy Unknown Verified 08/11/19 03:55 sucralose Allergy Unknown Verified 08/11/19 03:55 [From Splenda (sucralose)] Consultations 08/10/19 10:03 ED Decision to Admit Stat 08/10/19 12:32 Consult Case Management - Discharge Planning Routine Consult Gastroenterology Stat 08/11/19 02:24 Consult Professional Golf Tournament Player Routine Procedures Performed Operation Date: 08/11/19 07:20 Actual Procedures p Colonoscopy in Operating Room(Not Applicable) - Jonn Green s Endoscopicgastroduodenoscopy in Operating Room - Jonn Green DICTATED BY: Jonn Green MD Patient Name: Samantha Sinha Procedure Date: 08/11/2019 9:08 AM Date of : 1940 Admit Type: Inpatient Age: 78 Gender: Female Attending MD: Jonn Green MD Procedure: Upper GI endoscopy Providers: Jonn Green MD, Teresa Wolfe MD Referring MD: Octaviano Upton Indications: Hematochezia Medicines: Monitored Anesthesia Care Complications: No immediate complications. Estimated blood loss: None. Estimated Blood Loss: Estimated blood loss: none. Procedure: Pre-Anesthesia Assessment: - Pre-Anesthesia Assessment: - Prior to the procedure, a History and Physical was performed, and patient medications, allergies and sensitivities were reviewed. The patient's tolerance of previous anesthesia was reviewed. Please see [employer] for complete details. - The risks and benefits of the procedure and the sedation options and risks were discussed with the patient. All questions were answered and informed consent was obtained. - Patient identification and proposed procedure were verified prior to the procedure by the physician and the nurse. The procedure was verified in the pre-procedure area in the procedure room. After obtaining informed consent, the endoscope was passed carefully and meticuously under direct vision and only advanced when the lumen was clearly identified, C02 insuflation was utilized throughout the entirity of the procedure. Throughout the procedure, the patient's blood pressure, pulse, and oxygen saturations were monitored continuously. After obtaining informed consent, the endoscope was passed under direct vision. Throughout the procedure, the patient's blood pressure, pulse, and oxygen saturations were monitored continuously. The Endoscope was introduced through the mouth, and advanced to the fourth part of duodenum. The upper GI endoscopy was accomplished without difficulty. The patient tolerated the procedure well. Findings: The examined esophagus was normal. The entire examined stomach was normal. The first portion of the duodenum, second portion of the duodenum, third portion of the duodenum, fourth portion of the duodenum and examined duodenum were normal. Impression: - Normal esophagus. - Normal stomach. - Normal first portion of the duodenum, second portion of the duodenum, third portion of the duodenum, fourth portion of the duodenum and examined duodenum. - No specimens collected. Recommendation: - Perform a colonoscopy today. - No signs of upper GI bleeding. Jonn Green MD 08/11/2019 10:47:27 AM This report has been signed electronically. Teresa Wolfe MD Note Initiated On: 08/11/2019 9:08 AM Number of Addenda: 0 I attest to the content of the Intraoperative Record and orders documented therein, exceptions below {[id number]} Signed By:{f rep sign date/time1] Created/Dictated: 08/11/19 0908 Transcribed: 08/11/19 1047 DICTATED BY: Jonn Green MD Patient Name: Samantha Sinha Procedure Date: 08/11/2019 9:58 AM Date of : 1940 Admit Type: Inpatient Age: 78 Gender: Female Attending MD: Jonn Green MD Procedure: Colonoscopy Providers: Jonn Green MD, Teresa Wolfe MD Referring MD: Octaviano Upton Indications: Hematochezia Medicines: Monitored Anesthesia Care Complications: No immediate complications. Estimated blood loss: None. Estimated Blood Loss: Estimated blood loss: none. Procedure: Pre-Anesthesia Assessment: - Pre-Anesthesia Assessment: - Prior to the procedure, a History and Physical was performed, and patient medications, allergies and sensitivities were reviewed. The patient's tolerance of previous anesthesia was reviewed. Please see [employer] for complete details. - The risks and benefits of the procedure and the sedation options and risks were discussed with the patient. All questions were answered and informed consent was obtained. - Patient identification and proposed procedure were verified prior to the procedure by the physician and the nurse. The procedure was verified in the pre-procedure area in the procedure room. After obtaining informed consent, the endoscope was passed carefully and meticuously under direct vision and only advanced when the lumen was clearly identified, C02 insuflation was utilized throughout the entirity of the procedure. Throughout the procedure, the patient's blood pressure, pulse, and oxygen saturations were monitored continuously. After I obtained informed consent, the scope was passed under direct vision. Throughout the procedure, the patient's blood pressure, pulse, and oxygen saturations were monitored continuously. The Endoscope was introduced through the anus and advanced to the cecum, identified by appendiceal orifice and ileocecal valve. The scope was introduced through the and advanced to. The colonoscopy was performed without difficulty. The patient tolerated the procedure well. The quality of the bowel preparation was poor. Findings: Hematin, red, and clotted blood (altered blood/zstitq-dextqw-york material) was found in the entire colon. Multiple small and large-mouthed diverticula were found in the sigmoid colon, descending colon and ascending colon. The distal ileum contained hematin (altered blood/hmzqnl-qwuxaa-acou material). No active bleeding was identified after very close and meticulous irrigation and washing. Impression: - Preparation of the colon was poor. - No active bleeding identified, prior evidence of bleeding noted. - No specimens collected. Recommendation: - Return patient to ICU for ongoing care. - Transfer to Tertiary Center with IR capabilities. Continue to support hemodynamics. Jonn Green MD 08/11/2019 10:52:48 AM This report has been signed electronically. Teresa Wolfe MD Note Initiated On: 08/11/2019 9:58 AM Number of Addenda: 0 I attest to the content of the Intraoperative Record and orders documented therein, exceptions below {[id number]} Signed By:{f rep sign date/time1] Created/Dictated: 08/11/19 0958 Transcribed: 08/11/19 1053 Ordered Studies 08/10/19 12:41 CT abd pelvis wo con Stat CT SCAN OF THE ABDOMEN AND PELVIS WITHOUT CONTRAST CLINICAL HISTORY: hematochezia COMPARISON STUDY: September 19, 2014 TECHNIQUE: CT scan of the abdomen and pelvis was performed from the lung bases to the proximal femurs. Images are reviewed in the axial, sagittal, and coronal planes. IV contrast was not administered for this examination. A dose lowering technique was utilized adhering to the principles of ALARA. CT DOSE: 246.06 mGy.cm FINDINGS: Lower chest: There are persistent right lower lobe atelectatic changes. Liver: The unenhanced liver is normal in size, contour, and attenuation. There is no intrahepatic biliary ductal dilatation. Gallbladder: Unremarkable. Spleen: Normal in size and attenuation. Pancreas: Unremarkable. Adrenal glands: Unremarkable. Kidneys: There is a 2 mm nonobstructing left renal calculus. There is no hydronephrosis. No ureteral or bladder calculi are visualized. Bowel: There are no transition zones indicate bowel obstruction. There is no evidence of acute diverticulitis. There is moderate fecal retention. Clinical correlation regards to constipation is recommended. There are no findings to indicate acute appendicitis. Peritoneum: There is no intraperitoneal free air or abdominal ascites. Vasculature: The abdominal aorta is normal in course and caliber. Adenopathy: None. Pelvic viscera: There is a 42 mm right adnexal cystic lesion, likely ovarian. Skeletal structures: There is a severe scoliosis. IMPRESSION: 1. Examination limited due to the lack of intravenous and oral contrast 2. 2 mm nonobstructing left renal calculus 3. No evidence of bowel obstruction. No evidence of free air 4. No evidence of acute appendicitis. No evidence of acute diverticulitis 5. 42 mm cystic right adnexal lesion, likely ovarian. Given the age of the patient, ultrasound follow-up is recommended. 6. Fecal retention. Clinical correlation regards to constipation is recommended 7. Severe scoliosis ACT 112: Negative or not required by law. Electronically signed by: Donny Gonzalez M.D. 08/10/2019 1:37 PM Dictated: 08/10/19 1326 Transcribed: 08/10/19 1336 Hospital Course (1) Rectal bleeding: (2) Supratherapeutic INR: GI bleeding Symptomatic anemia 78 y/o F with PMH paroxysmal atrial fibrillation on Coumadin, hypertrophic obstructive cardiomyopathy, chronic respiratory failure on 2 L oxygen secondary to scoliosis, GERD presented to ER with complaint abdominal cramping this morning with explosive loose stool with bright red blood. INR on admission 3.3 Hbg dropped to 4.8 CT abd/pelvis showed No evidence of bowel obstruction. No evidence of free air No evidence of acute appendicitis. No evidence of acute diverticulitis Received so far 5 units PRBC, 3 units FFP and 1 unit Cryo Most recent repeat hgb 6.8 Colonoscopy done today showed : Hematin, red, and clotted blood (altered blood/tdmeve-jbzeru-xhua material) was found in the entire colon. Multiple small and large-mouthed diverticula were found in the sigmoid colon, descending colon and ascending colon. The distal ileum contained hematin (altered blood/vjmajk-dozsrt-ayeu material). No active bleeding was identified after very close and meticulous irrigation and washing. EGD done today showed : Normal esophagus. Normal stomach. Normal duodenum Case discussed with GI that recommended to transfer to tertiary care facility for IR intervention Will give an additional 2 units FFP and 2 units PRBC Continue PPI drip Vit K given on admission and INR 1.5 today and continue to hold coumadin was notified by Gastro Dr. Green and agreed to transfer to [place] Case discussed with [facility] hospitalist in [place] Dr. Cedeno who agreed with the transfer Continue monitor H/H Will keep NPO for now (3) Hypomagnesemia: Magnesium: 1.5 today Mag replaced Continue monitor Mg level (4) Paroxysmal atrial fibrillation: Rate has been btw 80's to 100's INR on admission 3.3 Received Vit K and INR 1.5 today Continue to hold coumadin due to the GI bleed (5) Diabetes mellitus, type II: A1c: 6.4 on 08/01/2019 Continue to hold oral DM Continue monitor BS (6) Chronic respiratory failure: (7) Nocturnal hypoxemia: Restrictive lung disease secondary to scoliosis. Continue chronic 2L oxygen via [place] [facility] [employer] [facility] (8) Hypertrophic cardiomyopathy: History echo 2017: EF: 70%, grade 1 diastolic dysfunction, mild LVH, left ventricular outflow tract obstruction, mild mitral regurgitation, mild aortic stenosis Continue Norpace (9) GERD (gastroesophageal reflux disease): Continue PPI drip Right adnexal cyst CT pelvis/abd showed 42 mm cystic right adnexal lesion, likely ovarian. Recommended pelvis u/s DVT Prophylaxis Coumadin on hold SCDs due to GI bleeding DNR/DNI Disposition Will transfer to [facility] for possible IR Interventional Accepting hospitalist physician Dr. Cedeno Total Time Total Time Spent Total Time Spent (In Minutes): 60 minutes Total Time Includes: Examination of the Patient, Discharge Planning, Medication Reconciliation, Communication With Other Providers and Other Discharge Plan Discharge Items Patient Disposition: Transfer Acute Care Hospital Reason For Visit: gi bleed Discharge Diagnosis: Acute GI bleeding Supratherapeutic INR Symptomatic anemia Hypomagnesemia Paroxysmal atrial fibrillation Diabetes mellitus, type II Chronic respiratory failure Nocturnal hypoxemia Restrictive lung disease secondary to scoliosis. Continue chronic 2L oxygen via [place] Hypertrophic cardiomyopathy: GERD (gastroesophageal reflux disease): Right adnexal cyst Activity: Resume your previous activity Non-emergency contact: Primary Care Provider and Revenue Cycle Administrator Call non-emergency contact if: you have any medication questions Follow-up/Referrals: Beatrice More MD [Primary Care Provider] - Diet: Nothing by Mouth Addtl Attending Provider Instructions: Transfer to [facility] Accepting physician hospitalist Dr. Cedeno Consult Intervention radiology for evaluation Keep NPO for now Continue IV PPI drip for now Continue to hold coumadin due to GI bleeding Continue oxygen supplement Pending Studies at Discharge: No Stand-Alone Forms: My [employer] Items Patient informed of condition?: Yes DNR: Yes Discharge Level of Care: Other Communicable Disease: No Discharge Prognosis: Other Lines: Peripheral IV Urinary Catheter: No Medications and DC Order Prescriptions: Continued biotin 1,000 mcg tablet,chewable 1,000 mcg PO QDD RF: 0 cholecalciferol (vitamin D3) 1,000 unit capsule 1,000 units PO DAILY RF: 0 warfarin [Coumadin] 2.5 mg tablet 3.75 mg PO HS RF: 0 (DME) oxygen-air delivery systems device See Dose Instructions .ROUTE .MEDSUPPLY Qty: 1 RF: 0 Januvia 25 mg tablet 25 mg PO QAM RF: 0 famotidine [Pepcid] 40 mg tablet 40 mg PO HS PRN (Reason: Acid Reflux) RF: 0 verapamil 40 mg tablet 40 mg PO TID RF: 0 pantoprazole [Protonix] 40 mg tablet,delayed release (DR/EC) 40 mg PO QAM RF: 0 calcium carbonate [Calcium 600] 600 mg calcium (1,500 mg) Tablet 600 mg PO DAILY RF: 0 magnesium oxide 250 mg magnesium Tablet 250 mg PO DAILY RF: 0 disopyramide phosphate [Norpace] 100 mg Capsule 100 mg PO QAM RF: 0 Discharge Orders: Discharge Order (Routine); Ordered 08/11/19 Ordered By: Last Araya Admission Data Admit Date/Time: 08/10/19 10:38 Attending Provider: Last Araya Admit Provider: Octaviano Upton Primary Care Provider: Beatrice More Other Providers: Last Araya ; Teresa Wolfe ; Guerrero Blake ; Octaviano Upton
== END 2019-08-11 14:00 | disposition short-term general hospital (02) | DRG 378 ==
LOC: ED 08:32 → SUATTDRO 10:38 → 2W 10:38 → 1E 22:19

== ENCOUNTER 2019-08-17 19:00 | Inpatient (IN) ==
[2019-08-17 20:08] LABS: Basophils # (auto) 0.01 K/uL (0-0.2); Basophils % (auto) 0.2 %; Eosinophils # (auto) 0.14 K/uL (0-0.5); Eosinophils % (auto) 2.4 %; Hematocrit (blood only) 36.1 % (37-47); Hemoglobin 11.7 g/dL (12.0-16.0); Immature Granulocytes # (auto) 0.02 K/uL (0.00-0.02); Immature Granulocytes % (auto) 0.3 %; Lymphocytes # (auto) 1.01 K/uL (1.2-3.4); Lymphocytes % (auto) 17.5 %; Mean Corpuscular Hemoglobin 29.7 pg (25-34); Mean Corpuscular Hgb Conc 32.4 g/dL (32-36); Mean Corpuscular Volume 91.6 fL (80-100); Monocytes % (auto) 10.4 %; Neutrophils # (auto) 3.98 K/uL (1.4-6.5); Neutrophils % (auto) 69.2 %; Platelet Count 234 K/uL (130-400); RDW Coefficient of Variation 13.8 % (11.5-14.5); RDW Standard Deviation 45.3 fL (36.4-46.3); Red Blood Count 3.94 M/uL (4.2-5.4); White Blood Count 5.76 K/uL (4.8-10.8)
[2019-08-17 20:29] LABS: Albumin Level 3.1 gm/dl (3.4-5.0); BUN Creatinine Ratio 34.7 (10-20); Bilirubin Direct 0.1 mg/dl (0-0.2); Calcium 9.4 mg/dl (8.5-10.1); Creatinine Clr Calc Pharmacy 57.5 ml/min; Est GFR (Non-African American) 96.6; Potassium 4.5 mmol/L (3.5-5.1)
--- NOTE | 2019-08-17 20:32 | Emergency Department Note ---
History of Present Illness General Chief complaint: Rectal Bleed Stated complaint: RECTAL BLEED, ONGOING Time Seen by Provider: 08/17/19 19:34 History of Present Illness Provider complaint: Rectal bleeding and abdominal pain Onset (ago): hour(s) 2 Location: abdomen and buttocks Severity: moderate Pain Consistency: + constant Maximum Pain Intensity: 4 Current Pain Intensity: 4 Quality: + aching Relieved By: + none Exacerbated By: + eating Associated symptoms: no confusion, no chest pain, no cough, no fever/chills, no headaches, no nausea/vomiting, no shortness of breath and no weakness 78-year-old female presents emergency department for abdominal pain and bloody stools. Patient states that at 6 PM tonight she started having abdominal pain after eating a tract dinner. She states she went to the bathroom and had bloody stools with also black pellets. Denies any nausea vomiting. No fevers. Patient was recently discharged from [facility] after suffering a GI bleed and needed multiple transfusions. No chest pain, difficulty breathing, Home Medications Home Medications Medication Instructions Recorded Confirmed Type oxygen-air delivery systems #1 11/02/17 11/14/18 History disopyramide phosphate [Norpace] 100 mg PO QAM 08/10/19 08/17/19 History pantoprazole [Protonix] 40 mg PO QAM 08/10/19 08/17/19 History verapamil 40 mg PO TID 08/10/19 08/17/19 History Allergies Allergy/AdvReac Type Severity Reaction Status Date / Time hydromorphone [From Dilaudid] Allergy Severe Unknown Verified 08/17/19 20:45 morphine Allergy Severe BREATHING Verified 08/17/19 20:45 DIFFICULTY oxycodone Allergy Severe Unknown Verified 08/17/19 20:45 iodine Allergy Mild Unknown Verified 08/17/19 20:45 aspartame Allergy Unknown Verified 08/17/19 20:45 stevioside [From Stevia] Allergy Unknown Verified 08/17/19 20:45 sucralose Allergy Unknown Verified 08/17/19 20:45 [From Splenda (sucralose)] Past Med/Surg History Medical History Chronic respiratory failure Closed head injury (Chronic) Contusion (Chronic) COPD (chronic obstructive pulmonary disease) (Chronic) Diabetes mellitus, type II Dizziness (Chronic) Facial contusion (Chronic) GERD (gastroesophageal reflux disease) (Chronic) Hyperglycemia (Chronic) Hypertrophic cardiomyopathy (Chronic) Left ventricular outflow tract obstruction Multiple abrasions (Chronic) Nocturnal hypoxemia Osteoporosis (Chronic) Paroxysmal atrial fibrillation 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) SBO (small bowel obstruction) (Chronic) Scoliosis (Chronic) Weakness (Chronic) Surgical History History of (Chronic) S/P cataract surgery (Chronic) S/P lumbar spinal fusion (Chronic) Family History Father Lung disease Heart disease Mother Heart disease Social History Preferred Language: Belarusian Communication Ability: Effective Health And Physical Education Teacher Required: No Beliefs That Will Affect Care: None marital status: Current Living Situation: Spouse Feels Safe at Home: Yes Smoking Status: Never smoker Hx Alcohol Use: Yes Alcohol type: wine Alcohol Intake Frequency: Holidays/Special Occasions Hx Substance Use: No Childhood Exposure to Second-Hand Smoke: Yes Review of Systems A total of 10 systems reviewed and were otherwise negative Physical Exam Vital Signs Vital Signs - 24 hr 08/17/19 19:05 08/17/19 20:05 08/17/19 21:04 Temperature 36.9 C Temperature Source Oral Pulse Rate 82 82 87 Pulse Rate from SpO2 Sensor 86 Pulse Rhythm Regular Respiratory Rate 20 18 24 Blood Pressure 145/72 H 140/73 Blood Pressure Mean 96 87 Blood Pressure Position Sitting Pulse Oximetry 95 100 Oxygen Delivery Method Nasal Cannula Room Air Oxygen Flow Rate 2 Sepsis Recent Fever Within 48 Hours No Sepsis New/Unexplained Change in Mental Status No Sepsis Action Taken by Nursing No Action Required 08/17/19 21:30 Temperature Temperature Source Pulse Rate 83 Pulse Rate from SpO2 Sensor 82 Pulse Rhythm Respiratory Rate 27 H Blood Pressure 142/67 H Blood Pressure Mean 85 Blood Pressure Position Pulse Oximetry 100 Oxygen Delivery Method Room Air Oxygen Flow Rate Sepsis Recent Fever Within 48 Hours Sepsis New/Unexplained Change in Mental Status Sepsis Action Taken by Nursing Physical Exam GENERAL: She is oriented to person, place, and time. She appears very petite and well-nourished. She does not appear distressed. She is on 2 L oxygen which she wears at all times. HENT: Exam performed. -Head: Normocephalic and atraumatic. -Right Ear: External ear normal. No mastoid tenderness. -Left Ear: External ear normal. No mastoid tenderness. -Mouth/Throat: The oropharynx is clear and moist. No trismus in the jaw. No dental abscesses or uvula swelling. No oropharyngeal exudate or tonsillar abscesses. EYES: Conjunctivae and EOM are normal. Pupils are equal, round, and reactive to light. Right eye exhibits no discharge. Left eye exhibits no discharge. No scleral icterus. NECK: Normal range of motion. Neck supple. No JVD present. No spinous process tenderness present. No carotid bruit present. No rigidity. No tracheal deviation and normal range of motion present. No Brudzinski's sign and no Kernig's sign noted. CV: Normal rate, irregular rhythm, systolic murmur present. Patient states she has a history of systolic murmur Intact distal pulses. 1+ pitting edema of the bilateral lower extremities. Palpable radial pulses bue. PULM/CHEST: Effort normal and breath sounds normal. No respiratory distress. No stridor. She has no wheezes. She has no rales. -Chest Wall: She exhibits no tenderness. ABD: The abdomen is soft. Bowel sounds are normal. She has no distension. No mass is present. There is no tenderness. There is no rebound, no guarding, no Ramirez's sign and no tenderness at McBurney's point. Rovsig negative Rectal: Bright red blood per rectum. MUSC/SKEL: Severe scoliosis, baseline for patient. 1+ pitting edema of the bilateral lower extremities. LYMPH: No cervical adenopathy. NEURO: She is alert and oriented to person, place, and time. She has normal strength. No cranial nerve deficit or sensory deficit. Coordination and gait normal. GCS eye subscore is 4. GCS verbal subscore is 5. GCS motor subscore is 6. Cerebellar tests wnl. SKIN: Skin is warm and dry. She is not diaphoretic. PSYCH: She has a normal mood and affect. Behavior is normal. Judgment and thought content normal. Course Course 1929: The patient was evaluated in room B5. A complete history and physical exam was performed. EMR reviewed. Patient was admitted on August 09 with hemoglobin of 10.6 and subsequently hemoglobin dropped to 4.8 during admission that night. Patient was transfused. And was subsequently transferred to [facility]. Jailyn alaniz was able to obtain records from the [facility] system. Patient received a total of 7 units of packed red blood cells, 4 units of FFP, and 1 unit of cryoprecipitate. Patient had a colonoscopy done which showed multiple diverticula he was evaluated by GI and IR at [facility] and no intervention was recommended. Her hospitalization at [place] was complicated by transfusion associated circulatory overload and she was needed to get Lasix and BiPAP for 2 days. Cardiac monitoring: An order was placed for continuous cardiac monitoring. The monitor shows a rate of 80 with atrial fibrillation rhythm 211: Vital signs stable. Hemoglobin stable. Troponin is elevated. Patient reports no chest pain or difficulty breathing. Patient will be admitted to the [facility] for GI bleed and elevated troponin. Her hemoglobin and troponin will be trended by the hospitalist team. Dr. Carbajal notified Medical Decision Making Laboratory Data Result diagrams: 08/17/19 19:55 08/17/19 19:55 Lab Results 08/17/19 08/17/19 08/17/19 Range/Units 19:55 19:55 19:55 WBC 5.76 (4.8-10.8) K/uL RBC 3.94 L (4.2-5.4) M/uL Hgb 11.7 L (12.0-16.0) g/dL Hct 36.1 L (37-47) % MCV 91.6 (80-100) fL MCH 29.7 (25-34) pg MCHC 32.4 (32-36) g/dL RDW Std Deviation 45.3 (36.4-46.3) fL RDW Coeff of Ruthie 13.8 (11.5-14.5) % Plt Count 234 (130-400) K/uL MPV 9.0 (7.4-10.4) fL Immature Gran % (Auto) 0.3 % Neut % (Auto) 69.2 % Lymph % (Auto) 17.5 % Newberry % (Auto) 10.4 % Eos % (Auto) 2.4 % Baso % (Auto) 0.2 % Immature Gran # (Auto) 0.02 (0.00-0.02) K/uL Neut # (Auto) 3.98 (1.4-6.5) K/uL Lymph # (Auto) 1.01 L (1.2-3.4) K/uL Newberry # (Auto) 0.60 H (0.11-0.59) K/uL Eos # (Auto) 0.14 (0-0.5) K/uL Baso # (Auto) 0.01 (0-0.2) K/uL PT (9.0-12.0) Seconds INR (0.9-1.1) APTT (21.0-31.0) Seconds PTT Ratio Sodium 134 L (136-145) mmol/L Potassium 4.5 (3.5-5.1) mmol/L Chloride 90 L (98-107) mmol/L Carbon Dioxide 38 H (21-32) mmol/L Anion Gap 5.0 (3-11) BUN 16 (7-18) mg/dl Creatinine 0.46 L (0.6-1.2) mg/dl Est Cr Clr Drug Dosing 57.5 ml/min Est GFR ( Amer) 112.0 Est GFR (Non-Af Amer) 96.6 BUN/Creatinine Ratio 34.7 H (10-20) Glucose 171 H (70-99) mg/dl Calcium 9.4 (8.5-10.1) mg/dl Total Bilirubin 0.4 (0.2-1) mg/dl Direct Bilirubin 0.1 (0-0.2) mg/dl AST 21 (15-37) U/L ALT 29 (12-78) U/L Alkaline Phosphatase 60 (45-117) U/L Troponin I 0.107 H* (0-0.045) ng/ml Total Protein 6.7 (6.4-8.2) gm/dl Albumin 3.1 L (3.4-5.0) gm/dl Lipase 238 (73-393) U/L Blood Type O Positive Antibody Screen NEGATIVE 08/17/19 Range/Units 19:55 WBC (4.8-10.8) K/uL RBC (4.2-5.4) M/uL Hgb (12.0-16.0) g/dL Hct (37-47) % MCV (80-100) fL MCH (25-34) pg MCHC (32-36) g/dL RDW Std Deviation (36.4-46.3) fL RDW Coeff of Ruthie (11.5-14.5) % Plt Count (130-400) K/uL MPV (7.4-10.4) fL Immature Gran % (Auto) % Neut % (Auto) % Lymph % (Auto) % Newberry % (Auto) % Eos % (Auto) % Baso % (Auto) % Immature Gran # (Auto) (0.00-0.02) K/uL Neut # (Auto) (1.4-6.5) K/uL Lymph # (Auto) (1.2-3.4) K/uL Newberry # (Auto) (0.11-0.59) K/uL Eos # (Auto) (0-0.5) K/uL Baso # (Auto) (0-0.2) K/uL PT 10.2 (9.0-12.0) Seconds INR 1.0 (0.9-1.1) APTT 23.6 (21.0-31.0) Seconds PTT Ratio 0.8 Sodium (136-145) mmol/L Potassium (3.5-5.1) mmol/L Chloride (98-107) mmol/L Carbon Dioxide (21-32) mmol/L Anion Gap (3-11) BUN (7-18) mg/dl Creatinine (0.6-1.2) mg/dl Est Cr Clr Drug Dosing ml/min Est GFR ( Amer) Est GFR (Non-Af Amer) BUN/Creatinine Ratio (10-20) Glucose (70-99) mg/dl Calcium (8.5-10.1) mg/dl Total Bilirubin (0.2-1) mg/dl Direct Bilirubin (0-0.2) mg/dl AST (15-37) U/L ALT (12-78) U/L Alkaline Phosphatase (45-117) U/L Troponin I (0-0.045) ng/ml Total Protein (6.4-8.2) gm/dl Albumin (3.4-5.0) gm/dl Lipase (73-393) U/L Blood Type Antibody Screen Imaging Data Radiologist's Impression: XR abdomen 2V w PA chest HISTORY: 78 years-old Female abdominal pain acute generalized abdominal pain COMPARISON: CT abdomen and pelvis 08/10/2019 TECHNIQUE: PA view of the chest with erect and supine views of the abdomen FINDINGS: Cardiac mediastinal and hilar silhouettes are unchanged. Chronic chest wall deformity with marked thoracolumbar sigmoidal scoliosis. Chronic interstitial coarsening with possible mild pulmonary vascular congestion. No pneumothorax, large pleural effusion or airspace consolidation typical for pneumonia. Chronic right hemidiaphragmatic elevation. Unchanged moderate gaseous distention of the stomach. Surgical clip projects over the epigastric abdomen. Nonobstructive bowel gas pattern. No pneumatosis or pneumoperitoneum. Mild fecal retention. No urolith. IMPRESSION: 1. Chronic interstitial coarsening with possible mild pulmonary vascular congestion. 2. Unchanged gaseous distention of the stomach. 3. Nonobstructive bowel gas pattern. ACT 112: Negative or not required by law. The above report was generated using voice recognition software. It may contain grammatical, syntax or spelling errors. Electronically signed by: Cheng Garcia M.D. 08/17/2019 8:58 PM Dictated: 08/17/192055 Transcribed: 08/17/192055 ECG Data Indication: + other (GI bleed) Rate (beats per minute): 82 Rhythm: + normal sinus ECG Intervals/blocks: + Normal QRS, + Normal MT and + Normal QT-c ECG ST segments: + Normal ST segments and + T-wave inversions (Lead aVL only) Change: no significant change (No significant change from the EKG done 1 week ago on August 10, 2019.) [facility] Narrative 1929: The patient was evaluated in room B5. A complete history and physical exam was performed. EMR reviewed. Patient was admitted on August 09 with hemoglobin of 10.6 and subsequently hemoglobin dropped to 4.8 during admission that night. Patient was transfused. And was subsequently transferred to [facility]. Jailyn alaniz was able to obtain records from the [facility] system. Patient received a total of 7 units of packed red blood cells, 4 units of FFP, and 1 unit of cryoprecipitate. Patient had a colonoscopy done which showed multiple diverticula he was evaluated by GI and IR at [facility] and no intervention was recommended. Her hospitalization at [place] was complicated by transfusion associated circulatory overload and she was needed to get Lasix and BiPAP for 2 days. Cardiac monitoring: An order was placed for continuous cardiac monitoring. The monitor shows a rate of 80 with atrial fibrillation rhythm 2110: Vital signs stable. Hemoglobin stable. Troponin is elevated. Patient reports no chest pain or difficulty breathing. Patient will be admitted to the [facility] for GI bleed and elevated troponin. Her hemoglobin and troponin will be trended by the hospitalist team. Dr. Carbajal notified Impression & Plan Acute GI bleeding, Elevated troponin Discharge Plan Visit Data Chief Complaint: Rectal Bleed Stated Complaint: RECTAL BLEED, ONGOING ED Provider: Chuck Ceron Discharge Problem: Acute GI bleeding, Elevated troponin Patient Disposition: Being Evaluated by Hospitalist Forms Stand Alone Forms: [facility] Prescriptions Prescriptions: No Action (DME) oxygen-air delivery systems device See Dose Instructions .ROUTE .MEDSUPPLY Qty: 1 RF: 0 verapamil 40 mg tablet 40 mg PO TID RF: 0 pantoprazole [Protonix] 40 mg tablet,delayed release (DR/EC) 40 mg PO QAM RF: 0 disopyramide phosphate [Norpace] 100 mg Capsule 100 mg PO QAM RF: 0 Referrals Referrals: Beatrice More MD [Primary Care Provider] -
[2019-08-17 20:40] LABS: Bilirubin,Total 0.4 mg/dl (0.2-1); Total Protein 6.7 gm/dl (6.4-8.2); Troponin I 0.107 ng/ml (0-0.045)
--- NOTE | 2019-08-17 20:59 | XRay Report ---
XR abdomen 2V w PA chest HISTORY: 78 years-old Female abdominal pain acute generalized abdominal pain COMPARISON: CT abdomen and pelvis 08/10/2019 TECHNIQUE: PA view of the chest with erect and supine views of the abdomen FINDINGS: Cardiac mediastinal and hilar silhouettes are unchanged. Chronic chest wall deformity with marked tho racolumbar sigmoidal scoliosis. Chronic interstitial coarsening with possible mild pulmonary vascular congestion. No pneumothorax, large pleural effusion or airspace consolidation typical for pneumonia. Chronic right hemidiaphragmatic elevation. Unchanged moderate gaseous distention of the stomach. Jonny gical clip projects over the epigastric abdomen. Nonobstructive bowel gas pattern. No pneumatosis or pneumoperitoneum. Mild fecal retention. No urolith. IMPRESSION: 1. Chronic interstitial coarsening with possible mild pulmonary vascular congestion. 2. Unchanged gaseous distention of the stomach. 3. Nonobstructive bowel gas pattern. ACT 112: Negative or not required by law. The above report was generated using voice recognition software. It may contain grammatical, syntax o r spelling errors. Electronically signed by: Cheng Garcia M.D. 08/17/2019 8:58 PM
[2019-08-17 21:56] LABS: Partial Thromboplastin Ratio 0.8; Partial Thromboplastin Time 23.6 Seconds (21.0-31.0); Prothrombin Time 10.2 Seconds (9.0-12.0)
[2019-08-18] MEDS ORDERED: ONDANSETRON INJ 2 MG/ML 2 ML VIAL IV PRN (00:21)
[2019-08-18] MEDS ORDERED: ACETAMINOPHEN 325 MG TAB PO PRN ×2 (00:21→06:52)
[2019-08-18] MEDS ORDERED: NITROGLYCERIN SL 0.4 MG/TAB TAB SL PRN (00:21)
[2019-08-18] MEDS ORDERED: GLUCAGON FOR INJ 1 MG VIAL SQ PRN (00:30)
[2019-08-18] MEDS ORDERED: GLUCOSE 10 TABS/TUBE PO PRN (00:30)
[2019-08-18] MEDS ORDERED: GLUCOSE 40% GEL 15 GM TUBE PO PRN (00:30)
[2019-08-18] MEDS ORDERED: CARBOHYDRATES FOR HYPOGLYCEMIA PO PRN (00:30)
[2019-08-18] MEDS ORDERED: DEXTROSE 50% 50 ML SYRINGE IV PRN (00:30)
--- NOTE | 2019-08-18 00:53 | History and Physical Report ---
DATE OF ADMISSION: 08/17/2019 CHIEF COMPLAINT: Rectal bleed. HISTORY OF PRESENT ILLNESS: This is a 78-year-old female with past medical history significant for atrial fibrillation, Coumadin is held because of recent GI bleed, hypertrophic obstructive cardiomyopathy, chronic respiratory failure on 2 liters oxygen secondary to scoliosis, restrictive lung disease, GERD, history of recent acute blood loss anemia, history of recent transfusion associated circulatory overload, who presents with rectal bleed. The patient was recently in the hospital, admitted on 08/10/2019 with rectal bleed and she required 5 units of PRBCs, 3 units of FFP, and 1 unit of cyro. At that time, hemoglobin dropped to 4.8. INR was 3.3 and she also received 1 dose of IV vitamin K 5 mg. Colonoscopy, no active bleeding was identified, but blood was found in the entire colon and also showed diverticula around the sigmoid colon. EGD was unremarkable. At that time, the patient was transferred to [place] for further care in case the patient needs IR. At [place], she did fine, she did not require any intervention. Her hemoglobin was stable. Her hospitalization was complicated by transfusion-associated circulatory overload due to multiple blood transfusions given. She was treated with intravenous Lasix and BiPAP for 2 days with improvement of symptoms. Her hemoglobin has been stable and her Coumadin was held. She was discharged home today to follow with the PCP and cardiology with a plan of resuming Coumadin as per PCP and cardiology. The patient states she did fine after going home, but after eating her dinner, she had a bowel movement in which she noticed some blood in the stools and also black stools. She got worried and came back here. She has some mild abdominal discomfort and gas in the abdomen. Denies any other complaints. Lives with her . Denies any chest pain. No shortness of breath, no cough, no fever, no chills, no headaches. Says she has felt some lightheadedness. No blurred visions, no earache, no runny nose, no sore throat, no dysphagia. She has mild swelling in the lower extremity. Says because of the Lasix given in [place] she is peeing a lot, but her urine is clear, no hematuria. Ambulating fine without any support. She says she ate some bird seeds and thinks it could have irritated her stomach today. Currently resting comfortably and hemodynamically stable. Her hemoglobin is stable here at 11. ALLERGIES: HYDROMORPHONE, MORPHINE, OXYCODONE, IODINE, ASPARTAME, STEVIA, SUCRALOSE PAST MEDICAL HISTORY: As mentioned above. PAST SURGICAL HISTORY: EGD, colonoscopy, cataract surgery, , removal of cataract on the left side. MEDICATIONS: The patient is on Colace 100 mg p.o. b.i.d. Norpace 100 mg p.o. daily, verapamil 40 mg p.o. t.i.d., albuterol nebulization every 6 hours p.r.n., Pepcid 40 mg p.o. daily at bedtime, Tylenol 500 mg p.o. q. 6 hours p.r.n., Januvia 25 mg p.o. daily, magnesium oxide 250 mg p.o. daily, oxygen 2 liters via nasal cannula continuously, Protonix 40 mg p.o. daily, biotin 100 mcg p.o. daily, calcium 600 mg p.o. daily, vitamin D 1000 units p.o. daily. FAMILY HISTORY: Significant for mother had osteoarthritis, colon cancer, eye problems, heart disorder; father has lung disorder, heart disorder. SOCIAL HISTORY: , lives with . No smoking. Alcohol socially. No drug use. REVIEW OF SYSTEMS: As per HPI. Rest of review of systems negative. PHYSICAL EXAMINATION: GENERAL: The patient is old and frail, not in acute distress. VITAL SIGNS: Temperature 36.9, pulse 81, respiratory rate 22, blood pressure 138/66, oxygen 100% on room air. HEENT: No pallor, no icterus. Pupils equal, round, and reactive to light. NECK: No neck masses. Supple. CARDIOVASCULAR: S1, S2 heard, regular rate and rhythm.Systolic Murmurs at aortic and mitral region ABDOMEN: Soft, Bowel sounds present, Mild diffuse abdominal discomfort, no guarding, no distension TITLE ASSISTANT: Alert and oriented, C 2-12 Grossly intact, non focal Ext: mild pedal edema present, no erythema seen Labs: wbc 5.7, hb 11.7, hematocrit 36.1, platelets 234, Sodium 134, potassium 4.5,chloride 90,bicarb 38, Bun 16, Cr 0.4, Glucose 171 Pt 10.2, Inr 1.0, Aptt 23.6 CXR/Abdomen Xray: Mild pulmonary congestion. Unchanged gaseous distension of stomach. EKG: NSR with rate of 82. No chnage from previous ekg a/p Rectal bleed recently had significant rectal bleed requiring multiple transfusions and transfer to [place]. possibly diverticular bleed Hb stable Today also had black stool will start ppi drip npo, gentle fluids follow hb consult GI in am monitor in tele. A fib on verapamil and Norpace Coumadin held since last admission for above reasons followup with cardiology. Has appointment on coming Tuesday as per patient. Hypertrophic cardiomyopathy stable will monitor for any volume overload. DM seems to be on Januvia at home hold po meds will place on ISS and monitor Mild elevated troponin troponin o.1. EKG ok. Asymptomatic will follow serial Ce. DVT px scds Disposition Admit to med/tele close monitor pt/ot prior to discharge social service to help with discharge plan Code status. DNR/DNI as per my discussion with the patient. MTDD
[2019-08-18] MEDS: PANTOprazole 40 MG in DEXTROSE 5% 100 ML IV SCH ×5 (01:15→20:25)
[2019-08-18] MEDS: SODIUM CHLORIDE 0.9% 500 ML IV SCH (01:17)
[2019-08-18 06:11] LABS: Basophils # (auto) 0.01 K/uL (0-0.2); Basophils % (auto) 0.2 %; Eosinophils # (auto) 0.18 K/uL (0-0.5); Eosinophils % (auto) 4.4 %; Hematocrit (blood only) 34.3 % (37-47); Hemoglobin 10.9 g/dL (12.0-16.0); Immature Granulocytes # (auto) 0.01 K/uL (0.00-0.02); Immature Granulocytes % (auto) 0.2 %; Lymphocytes # (auto) 0.91 K/uL (1.2-3.4); Lymphocytes % (auto) 22.4 %; Mean Corpuscular Hemoglobin 29.5 pg (25-34); Mean Corpuscular Hgb Conc 31.8 g/dL (32-36); Mean Platelet Volume 8.9 fL (7.4-10.4); Monocytes # (auto) 0.45 K/uL (0.11-0.59); Monocytes % (auto) 11.1 %; Neutrophils # (auto) 2.51 K/uL (1.4-6.5); Neutrophils % (auto) 61.7 %; Platelet Count 241 K/uL (130-400); RDW Coefficient of Variation 13.9 % (11.5-14.5); RDW Standard Deviation 46.7 fL (36.4-46.3); Red Blood Count 3.69 M/uL (4.2-5.4); White Blood Count 4.07 K/uL (4.8-10.8)
[2019-08-18 06:56] LABS: BUN Creatinine Ratio 36.3 (10-20); Calcium 8.6 mg/dl (8.5-10.1); Creatinine Clr Calc Pharmacy 98.5 ml/min; Est GFR (African American) 135.1; Est GFR (Non-African American) 116.6; Magnesium 1.7 mg/dl (1.8-2.4); Potassium 4.3 mmol/L (3.5-5.1)
--- NOTE | 2019-08-18 07:01 | Electrocardiogram Report ---
Test Reason : Blood Pressure : / mmHG Vent. Rate : 082 BPM Atrial Rate : 082 BPM P-R Int : 136 ms QRS Dur : 084 ms QT Int : 358 ms P-R-T Axes : 053 020 079 degrees QTc Int : 418 ms Normal sinus rhythm Possible Left atrial enlargement Left ventricular hypertrophy Abnormal ECG When compared with ECG of 10-AUG-2019 08:48, No significant change was found Confirmed by Anant Goel ([id number]) on 08/18/2019 7:00:53 AM Referred By: REFERRED SELF Confirmed By:Anant Goel
[2019-08-18] MEDS: VERAPAMIL HCL 40 MG TAB PO SCH ×3 (07:50→20:27)
[2019-08-18] MEDS: DISOPYRAMIDE PHOSPHATE 100 MG PO SCH (07:52)
[2019-08-18] MEDS: INSULIN ASPART 100 UNITS/ML 3 ML PEN SC SCH ×4 (08:42→20:29)
--- NOTE | 2019-08-18 10:27 | Gastrointestinal Consultation ---
Date of Consultation August 18, 2019 Supervising Physician Co-Signing Physician Notes 78 yo fm with afib on coumadin, hocm, recent hospitalization at [facility] and then [facility] for rectal bleeding now thought to be diverticular. admitted through the ER with rectal bleeding that has now stopped. Suspect her bleeding is a slow diverticular bleeding- she is not exhibiting hemodynamic instability, no huge drop in hgb. She endorses no abdominal pain to suspect ischemic colitis. Would monitor her output, trend hgb. Minimize seeds though not clearly shown to be triggering for diverticula but given her thin status would recommend limiting as much as possible. She does not want to be re-scoped and given she had a bi directional endoscopy essentially with the last week- would not repeat at this time. if brisk brigh red blood from rectum, consider tagged rbc scan to localize bleeding, but if she remains stable would opt for conservative mgmt. She is DNR/DNI- she was in agreement with this plan. Liquid diet is fine, if no further bleeding today, fine to advance to softs. Hold coumadin for now. History of Present Illness Reason for Consultation: Rectal bleeding Attending Physician: Dev Eaton MD History of Present Illness 78 yo fm with a history of afib on coumadin in the past, hocm, gerd, crf, admitt ed through the ER for one episode of rectal bleeding that has since stopped. She was eating seeds yesterday and noticed a dark/reddish stool prompting visit to the ER at [facility]. Her hgb on admission was noted to be 11.7 down to 10.9 today, bun/cr stable. No acute complaints this morning. She had a recent hospital admission bleeding, hgb down to 4, had bidirectional endoscopy by early 08/2019 at [facility] with a normal egd and colon with diverticula in the sigmoid and ? blood in the ti. Transferred then to [place] for possible IR embolization if localization of the bleed was noted. She had no further bleeding in [place], developed transfusion overload and respiratory issues, then dc'd home. Now admitted to [facility]. She endorses no further bleeding since admission, no abdominal pain, only real change was that she was eating seeds. No fevers, chills, no jaundice, no lower leg swelling, no rectal bleeding or hematemesis. She appears to be off her coumadin at this time. No respiratory issues today. Allergies Allergy/AdvReac Type Severity Reaction Status Date / Time hydromorphone [From Dilaudid] Allergy Severe Unknown Verified 08/17/19 20:45 morphine Allergy Severe BREATHING Verified 08/17/19 20:45 DIFFICULTY oxycodone Allergy Severe Unknown Verified 08/17/19 20:45 iodine Allergy Mild Unknown Verified 08/17/19 20:45 aspartame Allergy Unknown Verified 08/17/19 20:45 stevioside [From Stevia] Allergy Unknown Verified 08/17/19 20:45 sucralose Allergy Unknown Verified 08/17/19 20:45 [From Splenda (sucralose)] Home Medications Home Medications Medication Instructions Recorded Confirmed Type oxygen-air delivery systems #1 11/02/17 11/14/18 History disopyramide phosphate [Norpace] 100 mg PO QAM 08/10/19 08/17/19 History pantoprazole [Protonix] 40 mg PO QAM 08/10/19 08/17/19 History verapamil 40 mg PO TID 08/10/19 08/17/19 History sitagliptin [Januvia] 25 mg PO DAILY 08/18/19 08/18/19 History Patient History Medical History Chronic respiratory failure Closed head injury (Chronic) Contusion (Chronic) COPD (chronic obstructive pulmonary disease) (Chronic) Diabetes mellitus, type II Dizziness (Chronic) Facial contusion (Chronic) GERD (gastroesophageal reflux disease) (Chronic) Hyperglycemia (Chronic) Hypertrophic cardiomyopathy (Chronic) Left ventricular outflow tract obstruction Multiple abrasions (Chronic) Nocturnal hypoxemia Osteoporosis (Chronic) Paroxysmal atrial fibrillation 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) SBO (small bowel obstruction) (Chronic) Scoliosis (Chronic) Weakness (Chronic) Surgical History History of (Chronic) S/P cataract surgery (Chronic) S/P lumbar spinal fusion (Chronic) Family History Father Lung disease Heart disease Mother Heart disease Social History Preferred Language: Omani Communication Ability: Effective Roster Clerk Required: No Beliefs That Will Affect Care: None marital status: Current Living Situation: Spouse Other Information That Helps Us Care for You: No Feels Safe at Home: Yes Safety Concerns: Feels Safe At This Time Smoking Status: Never smoker Do You Dip or Chew Tobacco: No ; Second Hand Exposure: No ; Tobacco Cessation Education Requested by Patient: No Hx Alcohol Use: Yes Alcohol type: wine Alcohol Intake Frequency: Holidays/Special Occasions Hx Substance Use: No Childhood Exposure to Second-Hand Smoke: Yes Review of Systems Review of Systems: All systems reviewed & are unremarkable except as noted in HPI & below Physical Exam Physical Exam: Very thin female in nad, wearing oxygen Constitutional: WD/WN, vitals as above Eyes: PERRL, conjunctivae normal, anicteric sclerae Respiratory: no respiratory distress, no labored breathing and no retractions Gastrointestinal (Abdomen): normal bowel sounds, soft, nontender, no hepatosplenomegaly Extremely thin Neurologic: PERRL, EOMI, accommodation nl, no face palsy, no dysarthria Results & Data ([facility]) Vital Signs (Past 12 Hours) Vital Signs Temp Pulse Pulse Resp BP BP BP 08/18/19 07:43 36.5 C 81 18 130/75 08/18/19 03:29 36.5 C 78 18 158/73 H 08/18/19 03:09 74 17 132/67 08/18/19 02:09 73 15 127/62 08/18/19 01:10 36.8 C 86 17 162/67 H 08/17/19 23:51 36.8 C 77 21 152/58 H 08/17/19 23:06 81 22 138/66 08/17/19 22:30 81 22 138/66 Pulse Ox 08/18/19 07:43 100 08/18/19 03:29 100 08/18/19 03:09 100 08/18/19 02:09 100 08/18/19 01:10 86 L 08/17/19 23:51 100 08/17/19 23:06 100 08/17/19 22:30 100 Labs reviewed Cxray with mild pulmonary vascular congestion Hgb 11.[address] 08/09 without contrast showing ? adnexal mass
[2019-08-18] MEDS ORDERED: Nursing to Pharmacy Communication SCH ×2 (10:30→15:00)
--- NOTE | 2019-08-18 13:57 | Hospitalist Progress Note ---
Date of Service August 18, 2019 Assessment & Plan (1) Rectal bleeding: Suspected to be slow diverticular bleeding -as per admission H/P in regards for recent hospitalizations and context of ED presentation on 08/17/2019 "This is a 78-year-old female with past medical history significant for atrial fibrillation, Coumadin is held because of recent GI bleed, hypertrophic obstructive cardiomyopathy, chronic respiratory failure on 2 liters oxygen secondary to scoliosis, restrictive lung disease, GERD, history of recent acute blood loss anemia, history of recent transfusion associated circulatory overload, who presents with rectal bleed. The patient was recently in the hospital, admitted on 08/10/2019 with rectal bleed and she required 5 units of PRBCs, 3 units of FFP, and 1 unit of cyro. At that time, hemoglobin dropped to 4.8. INR was 3.3 and she also received 1 dose of IV vitamin K 5 mg. Colonoscopy, no active bleeding was identified, but blood was found in the entire colon and also showed diverticula around the sigmoid colon. EGD was unremarkable. At that time, the patient was transferred to [place] for further care in case the patient needs IR. At [place], she did fine, she did not require any intervention. Her hemoglobin was stable. Her hospitalization was complicated by transfusion-associated circulatory overload due to multiple blood transfusions given. She was treated with intravenous Lasix and BiPAP for 2 days with improvement of symptoms. Her hemoglobin has been stable and her Coumadin was held. She was discharged home today to follow with the PCP and cardiology with a plan of resuming Coumadin as per PCP and cardiology. The patient states she did fine after going home, but after eating her dinner, she had a bowel movement in which she noticed some blood in the stools and also black stools. She got worried and came back here." -Hemoglobin on this admission appears stable so far around 11 as of 08/18/2019, Gastroenterology suspect her bleeding is a slow diverticular bleeding and to avoid seeds in the diet -continue protonix drip, advanced the diet from clear liquids to full liquid diet. give BOOST supplements with meals because patient is underweight. trend the CBC (2) Paroxysmal atrial fibrillation: -currently in sinus rhythm -not on systemic anticoagulation for stroke prevention for paroxysmal atrial fibrillation because of GI bleed -continue on verapamil and Norpace Hypertrophic cardiomyopathy Elevated troponin -0.107, 0.087, 0.84, no chest pain Chronic hypoxic respiratory failure with hypoxia -maintain the baseline oxygen as 2 liters/min Type 2 diabetes mellitus with no mcc current use of insulin -hold oral Januvia -sliding scale insulin for now based on blood sugars Underweight with BMI 15.6 -boost supplements with meals : [phone] Daughter: [phone], Admission and Anticipated Discharge Date Admission Date: August 17, 2019 Subjective reports blood in stool earlier today. no acute pain of abdomen or chest. no shortness of breath. no dizziness. no lightheadedness. no vomiting. no nausea. ate the liquid diet Review of Systems Review of Systems: All systems reviewed & are unremarkable except as noted in Subjective Physical Exam Constitutional: + thin Eyes: PERRL, conjunctivae normal, anicteric sclerae EOM intact bilaterally ENMT: external ear and nose normal, oropharynx normal Neck: trachea midline, no thyromegaly normal visual inspection Respiratory: normal respiratory effort, lungs clear to auscultation Cardiovascular: Rate/Rhythm: regular rate and regular rhythm Gastrointestinal (Abdomen): normal bowel sounds, soft, nontender, no hepatosplenomegaly Musculoskeletal: Head/Neck/Chest: normocephalic and head atraumatic scoliosis of the spine Neurologic: PERRL, EOMI, accommodation nl, no face palsy, no dysarthria CN's II-XI intact bilaterally Psychiatric: A+Ox3, euthymic affect Results & Data Results & Data ([facility]) Vital Signs (Past 12 Hours) Vital Signs Temp Pulse Pulse Resp BP BP BP 08/18/19 12:39 36.5 C 79 20 129/81 08/18/19 07:43 36.5 C 81 18 130/75 08/18/19 03:29 36.5 C 78 18 158/73 H 08/18/19 03:09 74 17 132/67 08/18/19 02:09 73 15 127/62 Pulse Ox 08/18/19 12:39 92 08/18/19 07:43 100 08/18/19 03:29 100 08/18/19 03:09 100 08/18/19 02:09 100
[2019-08-18] MEDS: MAGNESIUM SULFATE / D5W 1 GM/100 ML BAG IV SCH ×2 (14:14→14:16)
[2019-08-19] MEDS: PANTOprazole 40 MG in DEXTROSE 5% 100 ML IV SCH ×2 (02:51→06:13)
[2019-08-19 06:51] LABS: Basophils # (auto) 0.01 K/uL (0-0.2); Basophils % (auto) 0.2 %; Eosinophils # (auto) 0.14 K/uL (0-0.5); Eosinophils % (auto) 2.9 %; Hematocrit (blood only) 36.4 % (37-47); Hemoglobin 11.3 g/dL (12.0-16.0); Immature Granulocytes # (auto) 0.02 K/uL (0.00-0.02); Immature Granulocytes % (auto) 0.4 %; Lymphocytes % (auto) 20.9 %; Mean Corpuscular Hemoglobin 29.2 pg (25-34); Mean Corpuscular Volume 94.1 fL (80-100); Mean Platelet Volume 8.9 fL (7.4-10.4); Monocytes # (auto) 0.57 K/uL (0.11-0.59); Monocytes % (auto) 11.9 %; Neutrophils # (auto) 3.04 K/uL (1.4-6.5); Neutrophils % (auto) 63.7 %; Platelet Count 269 K/uL (130-400); RDW Coefficient of Variation 13.8 % (11.5-14.5); RDW Standard Deviation 46.9 fL (36.4-46.3); Red Blood Count 3.87 M/uL (4.2-5.4); White Blood Count 4.78 K/uL (4.8-10.8)
[2019-08-19 07:20] LABS: Albumin Level 2.9 gm/dl (3.4-5.0); BUN Creatinine Ratio 22.1 (10-20); Calcium 9.1 mg/dl (8.5-10.1); Creatinine Clr Calc Pharmacy 82.9 ml/min; Est GFR (African American) 128.9; Est GFR (Non-African American) 111.2; Potassium 4.4 mmol/L (3.5-5.1)
[2019-08-19 07:23] LABS: Albumin Globulin Ratio 0.9 (0.9-2); Bilirubin,Total 0.6 mg/dl (0.2-1); Globulin 3.3 gm/dl (2.5-4.0); Total Protein 6.2 gm/dl (6.4-8.2)
--- NOTE | 2019-08-19 07:49 | Hospitalist Progress Note ---
Date of Service August 19, 2019 Assessment & Plan (1) Rectal bleeding: Suspected to be slow diverticular bleeding -as per admission H/P in regards for recent hospitalizations and context of ED presentation on 08/17/2019 "This is a 78-year-old female with past medical history significant for atrial fibrillation, Coumadin is held because of recent GI bleed, hypertrophic obstructive cardiomyopathy, chronic respiratory failure on 2 liters oxygen secondary to scoliosis, restrictive lung disease, GERD, history of recent acute blood loss anemia, history of recent transfusion associated circulatory overload, who presents with rectal bleed. The patient was recently in the hospital, admitted on 08/10/2019 with rectal bleed and she required 5 units of PRBCs, 3 units of FFP, and 1 unit of cyro. At that time, hemoglobin dropped to 4.8. INR was 3.3 and she also received 1 dose of IV vitamin K 5 mg. Colonoscopy, no active bleeding was identified, but blood was found in the entire colon and also showed diverticula around the sigmoid colon. EGD was unremarkable. At that time, the patient was transferred to [place] for further care in case the patient needs IR. At [place], she did fine, she did not require any intervention. Her hemoglobin was stable. Her hospitalization was complicated by transfusion-associated circulatory overload due to multiple blood transfusions given. She was treated with intravenous Lasix and BiPAP for 2 days with improvement of symptoms. Her hemoglobin has been stable and her Coumadin was held. She was discharged home today to follow with the PCP and cardiology with a plan of resuming Coumadin as per PCP and cardiology. The patient states she did fine after going home, but after eating her dinner, she had a bowel movement in which she noticed some blood in the stools and also black stools. She got worried and came back here." -Hemoglobin on this admission appears stable so far around 11 as of 08/18/2019, Gastroenterology suspect her bleeding is a slow diverticular bleeding and to avoid seeds in the diet -08/18/2019: continue protonix drip, advanced the diet from clear liquids to full liquid diet. give BOOST supplements with meals because patient is underweight. -08/19/2019: CBC remains stable so far during this hospital stay, switch protonix from drip to oral pantoprazole, started solid texture diabetic diet, continue BOOST supplements, monitor inpatient today, in case any further GI problems, patient will be NPO after midnight and re-assess on 08/20/2019 (2) Paroxysmal atrial fibrillation: -currently in sinus rhythm -not on systemic anticoagulation for stroke prevention for paroxysmal atrial fibrillation because of GI bleed -continue on verapamil and Norpace Hypertrophic cardiomyopathy Elevated troponin -0.107, 0.087, 0.84, no chest pain Chronic hypoxic respiratory failure with hypoxia -maintain the baseline oxygen as 2 liters/min Type 2 diabetes mellitus with no senior living current use of insulin -hold oral Januvia -sliding scale insulin for now based on blood sugars Underweight with BMI 15.6 -boost supplements with meals Hypomagnesemia -serum magnesium 1.7 on 08/18/2019 and give IV magnesium. serum magnesium is 2 on 08/19/2019 at goal : [phone] Daughter: [phone], Admission and Anticipated Discharge Date Admission Date: August 17, 2019 Subjective Patient reports maybe a little blood in a bowel movement but no gross bleeding from rectum. no acute abdomen pain currently. no dizziness. no lightheadedness. she is pleasant and remains on baseline oxygen supplementation. no acute shortness of breath. no chest pain. Review of Systems Review of Systems: All systems reviewed & are unremarkable except as noted in Subjective Physical Exam Constitutional: + thin Eyes: PERRL, conjunctivae normal, anicteric sclerae EOM intact bilaterally ENMT: external ear and nose normal, oropharynx normal Neck: trachea midline, no thyromegaly normal visual inspection Respiratory: normal respiratory effort, lungs clear to auscultation Cardiovascular: Rate/Rhythm: regular rate and regular rhythm Gastrointestinal (Abdomen): normal bowel sounds, soft, nontender, no hepatosplenomegaly Musculoskeletal: Head/Neck/Chest: normocephalic and head atraumatic Neurologic: PERRL, EOMI, accommodation nl, no face palsy, no dysarthria CN's II-XI intact bilaterally Psychiatric: A+Ox3, euthymic affect Results & Data Results & Data ([facility]) Vital Signs (Past 12 Hours) Vital Signs Temp Pulse Pulse Resp BP Pulse Ox 08/19/19 04:06 36.6 C 79 20 114/71 99 08/19/19 00:04 76 08/18/19 23:35 76 16 101/57 L 100
[2019-08-19] MEDS: VERAPAMIL HCL 40 MG TAB PO SCH ×3 (08:21→20:48)
[2019-08-19] MEDS: DISOPYRAMIDE PHOSPHATE 100 MG PO SCH (08:22)
[2019-08-19] MEDS: PANTOprazole 40 MG TAB PO SCH (08:22)
[2019-08-19] MEDS: INSULIN ASPART 100 UNITS/ML 3 ML PEN SC SCH ×4 (08:41→20:49)
--- NOTE | 2019-08-19 09:13 | Gastroenterology Progress Note ---
Date of Service August 19, 2019 Assessment & Plan Admission and Anticipated Discharge Date Admission Date: August 17, 2019 Supervising Physician Co-Signing Physician Notes Suspect she had a slow diverticular bleed. No plans for further GI scopes today. Would trend hgb and limit seeds. If truly severe abdominal pain, consider Ct a/p with IV contrast to rule out ischemic colitis. Subjective No acute complaints hgb higher than before Review of Systems Review of Systems: All systems reviewed & are unremarkable except as noted in HPI & below Physical Exam Physical Exam: Thin elderly female in nad Respiratory: + abnormal respiratory effort, no respiratory distress and no retractions Skin: no rashes, warm and dry Results & Data ([facility]) Vital Signs (Past 12 Hours) Vital Signs Temp Pulse Pulse Resp BP BP Pulse Ox 08/19/19 08:17 36.8 C 109 H 18 103/64 99 08/19/19 04:06 36.6 C 79 20 114/71 99 08/19/19 00:04 76 08/18/19 23:35 76 16 101/57 L 100 Hgb is higher today - hgb 11.3
[2019-08-20 07:45] LABS: Basophils # (auto) 0.02 K/uL (0-0.2); Basophils % (auto) 0.4 %; Eosinophils # (auto) 0.16 K/uL (0-0.5); Eosinophils % (auto) 3.3 %; Hemoglobin 10.7 g/dL (12.0-16.0); Immature Granulocytes # (auto) 0.01 K/uL (0.00-0.02); Immature Granulocytes % (auto) 0.2 %; Lymphocytes # (auto) 1.15 K/uL (1.2-3.4); Lymphocytes % (auto) 23.7 %; Mean Corpuscular Hemoglobin 28.8 pg (25-34); Mean Corpuscular Volume 94.1 fL (80-100); Mean Platelet Volume 8.6 fL (7.4-10.4); Monocytes # (auto) 0.52 K/uL (0.11-0.59); Monocytes % (auto) 10.7 %; Neutrophils # (auto) 2.99 K/uL (1.4-6.5); Neutrophils % (auto) 61.7 %; Platelet Count 319 K/uL (130-400); RDW Coefficient of Variation 14.1 % (11.5-14.5); RDW Standard Deviation 47.8 fL (36.4-46.3); Red Blood Count 3.72 M/uL (4.2-5.4); White Blood Count 4.85 K/uL (4.8-10.8)
[2019-08-20 07:46] LABS: Mean Corpuscular Hgb Conc 30.6 g/dL (32-36)
[2019-08-20] MEDS ORDERED: SODIUM CHLORIDE 0.9% 1000ML 250 ML IV ONE (08:02)
[2019-08-20] MEDS: PANTOprazole 40 MG TAB PO SCH (08:14)
[2019-08-20] MEDS: DISOPYRAMIDE PHOSPHATE 100 MG PO SCH (08:14)
[2019-08-20] MEDS: VERAPAMIL HCL 40 MG TAB PO SCH ×4 (08:14→20:51)
--- NOTE | 2019-08-20 08:16 | Hospitalist Progress Note ---
Date of Service August 20, 2019 Assessment & Plan (1) Rectal bleeding: Suspected to be slow diverticular bleeding -as per admission H/P in regards for recent hospitalizations and context of ED presentation on 08/17/2019 "This is a 78-year-old female with past medical h istory significant for atrial fibrillation, Coumadin is held because of recent GI bleed, hypertrophic obstructive cardiomyopathy, chronic respiratory failure on 2 liters oxygen secondary to scoliosis, restrictive lung disease, GERD, history of recent acute blood loss anemia, history of recent transfusion associated circulatory overload, who presents with rectal bleed. The patient was recently in the hospital, admitted on 08/10/2019 with rectal bleed and she required 5 units of PRBCs, 3 units of FFP, and 1 unit of cyro. At that time, hemoglobin dropped to 4.8. INR was 3.3 and she also received 1 dose of IV vitamin K 5 mg. Colonoscopy, no active bleeding was identified, but blood was found in the entire colon and also showed diverticula around the sigmoid colon. EGD was unremarkable. At that time, the patient was transferred to [place] for further care in case the patient needs IR. At [place], she did fine, she did not require any intervention. Her hemoglobin was stable. Her hospitalization was complicated by transfusion-associated circulatory overload due to multiple blood transfusions given. She was treated with intravenous Lasix and BiPAP for 2 days with improvement of symptoms. Her hemoglobin has been stable and her Coumadin was held. She was discharged home today to follow with the PCP and cardiology with a plan of resuming Coumadin as per PCP and cardiology. The patient states she did fine after going home, but after eating her dinner, she had a bowel movement in which she noticed some blood in the stools and also black stools. She got worried and came back here." -Hemoglobin on this admission appears stable so far around 11 as of 08/18/2019, Gastroenterology suspect her bleeding is a slow diverticular bleeding and to avoid seeds in the diet -08/18/2019: continue protonix drip, advanced the diet from clear liquids to full liquid diet. give BOOST supplements with meals because patient is underweight. -08/19/2019: CBC remains stable so far during this hospital stay, switch protonix from drip to oral pantoprazole, started solid texture diabetic diet, continue BOOST supplements, monitor inpatient today, in case any further GI problems, patient will be NPO after midnight and re-assess on 08/20/2019 -08/20/2019: patient is seen this morning and asymptomatic. she denies any gross bleeding. she sometimes worry of trying to defecate because of history of blood in the stool. patient hemoglobin on 08/20/2019 continues to show pattern of stability. patient to resume the solid diet. patient noted to have mildly lower than usual blood pressure in the AM and mild tachycardia in the morning. Patient denies chest pain or palpitations. she does have history of paroxysmal atrial fibrillation and currently in sinus rhythm. Telemetry monitoring did note brief episodes of ventricular tachycardia but it did not seem that patient feeling acute symptoms. continues to be on 2 liters/min nasal cannula and not feeling shortness of breath. But because patient has been hospitalized in recent past that she is missing her [facility] affiliated account liaison follow ups. She agrees to be seen by [facility] cardiology as inpatient. Hospitalist will give some IV fluids and re-assess later in afternoon. 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 serum magnesium is 2 on 08/19/2019 at goal : [phone] Daughter: [phone], Admission and Anticipated Discharge Date Admission Date: August 17, 2019 Subjective patient is seen this morning and asymptomatic. she denies any gross bleeding. she sometimes worry of trying to defecate because of history of blood in the stool. patient hemoglobin on 08/20/2019 continues to show pattern of stability. patient to resume the solid diet. patient noted to have mildly lower than usual blood pressure in the AM and mild tachycardia in the morning. Patient denies chest pain or palpitations. she does have history of paroxysmal atrial fibrillation and currently in sinus rhythm. Telemetry monitoring did note brief episodes of ventricular tachycardia but it did not seem that patient feeling acute symptoms. continues to be on 2 liters/min nasal cannula and not feeling shortness of breath. But because patient has been hospitalized in recent past that she is missing her [facility] affiliated account liaison follow ups. She agrees to be seen by [facility] cardiology as inpatient. Hospitalist will give some IV fluids and re-assess later in afternoon. Review of Systems Review of Systems: All systems reviewed & are unremarkable except as noted in Subjective Physical Exam Constitutional: + thin Eyes: PERRL, conjunctivae normal, anicteric sclerae EOM intact bilaterally ENMT: external ear and nose normal, oropharynx normal Neck: trachea midline, no thyromegaly normal visual inspection Respiratory: normal respiratory effort, lungs clear to auscultation Cardiovascular: Rate/Rhythm: regular rhythm Gastrointestinal (Abdomen): normal bowel sounds, soft, nontender, no hepatosplenomegaly Musculoskeletal: Head/Neck/Chest: normocephalic and head atraumatic Neurologic: PERRL, EOMI, accommodation nl, no face palsy, no dysarthria CN's II-XI intact bilaterally Psychiatric: A+Ox3, euthymic affect Results & Data Results & Data ([facility]) Vital Signs (Past 12 Hours) Vital Signs Temp Pulse Pulse Resp BP BP Pulse Ox 08/20/19 07:40 36.8 C 105 H 20 94/55 L 99 08/20/19 07:03 114 H 08/20/19 03:00 36.6 C 78 16 102/67 97 08/19/19 23:45 67 08/19/19 23:30 36.3 C L 70 17 115/68 97
[2019-08-20] MEDS: INSULIN ASPART 100 UNITS/ML 3 ML PEN SC SCH ×4 (08:19→20:50)
--- NOTE | 2019-08-20 09:00 | Cardiology Consultation ---
Date of Consultation August 20, 2019 Assessment & Plan (1) Paroxysmal VT: One 7 beat run this AM, asymptomatic Electrolytes stable Continue norpace and verapamil Verapmil was held this AM due to hypotension with systolic BP < 100. Now that patient is ambulating around room, post breakfast and hydration, I instructed the nursing staff to recheck her BP and give verapamil when BP > 100 (2) Hypertrophic cardiomyopathy: Update 2D echo (3) Paroxysmal atrial fibrillation: Currently maintaining NSR Off anticoagulation therapy due to recurrent GI bleed. COntinue to hold (4) Acute GI bleeding: Follow with GI Hold coumadin Monitor H/H (5) Elevated troponin: Likely due to underlying HCM and anemia, demand ischemia Update echo No symptoms to suggest ACS EKG without acute changes during admission Case discussed with Dr. Harp. Continue home doses of Norpace and Disopyramide. Goal Hbg > 10. Update echo. Continue to hold coumadin Supervising Physician Co-Signing Physician Notes Patient seen and examined with Joselin Canchola PA-C. Agree with findings and assessment as above. History of hokum and now with acute GI bleed and a 7 beat run of V. tach on telemetry. Verapamil was held but will be restarted. Consideration also be given to initiation of beta-blockade should her blood pressure tolerated. Echocardiogram will be updated. Obviously, anticoagulation will be held. We will continue to follow closely. General: Awake, alert and oriented x 3. No acute distress. HEENT: Normocephalic, atraumatic. Pupils equal, round and reactive to light and accommodation. Extraocular muscles are intact. Anicteric sclera. Moist mucous membranes. Neck: No JVD. No bruit. Cardiovascular: Regular. Positive S-4. Normal S-1 and S-2. No S-3. 3/6 mid to late systolic ejection murmur, greatest at the right sternal border, second intercostal space with radiation to the bilateral carotids. No rubs. Pulmonary: Clear to auscultation bilaterally. No rales, rhonchi, or wheezing. Abdomen: Bowel sounds x 4, soft. No rebound, guarding or tenderness. No organomegaly. Extremities: No clubbing, cyanosis or edema. +2 pedal pulses bilaterally. Skin: Warm and dry. History of Present Illness Reason for Consultation: Histoyr of [facility] and Afib; Paroxysmal VT Requesting Physician: Dr. Eaton Attending Physician: Dr. Harp History of Present Illness Patient is a 78-year-old female known to [facility] cardiology, primary restaurant associate is Dr. Walton for history of hypertrophic cardiomyopathy and paroxysmal atrial fibrillation. She was recently admitted approximately 10 days ago with GI bleed with hemoglob in trending as low as 4.8. Her anticoagulation was reversed with vitamin K. She received multiple units of packed red blood cells. EGD was unremarkable. Colonoscopy revealed diffuse diverticulosis without evidence of acute bleed. She was ultimately transferred to [facility] for further evaluation. Her hemoglobin stabilized without recurrent bleeding. She was also treated for acute on chronic hypoxic respiratory failure and pulmonary edema associated with IV fluid and transfusion resuscitation. she received IV diuresis with improvement in her symptoms. No intervention was needed from a GI perspective. Coumadin was held on discharge. She was to have f/u with cardiology today as outpatient to discuss resumption of Coumadin. Unfortunately 2 days ago she had a recurrent BM with BRB and came to [place] for evaluation. GI consulted and Hbg has been stable, so no further intervention required at this time. She did have one blood tinged BM yesterday. Cardiology was consulted this morning after having 1 episode of paroxysmal VT lasting 7 beats. she was also mildly hypotensive this morning. She attributes low BP due to lack of food/hydration over 24 hours. she was able to eat breakfast this morning. Drinking fluids. She denies lightheadedness, dizziness or symptoms of palpitations or tachypalpoiations. No chest pain. she reports she was to have an updated echo this spring prior to cardiology f/u but this was cancelled due to COVID. At time of consult, patient feeling well. she is ambulating in room without issues. No cardiac complaints. Did not receive verapamil due to low BP. Problem list includes: 1.Severe kyphoscoliosis, with severe restrictive lung disease, O2 and BiPAP dependent. 2.Hypertrophic cardiomyopathy. 3.Paroxysmal atrial fibrillation controlled in sinus rhythm on combination of disopyramide and verapamil. 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 Allergies Allergy/AdvReac Type Severity Reaction Status Date / Time hydromorphone [From Dilaudid] Allergy Severe Unknown Verified 08/17/19 20:45 morphine Allergy Severe BREATHING Verified 08/17/19 20:45 DIFFICULTY oxycodone Allergy Severe Unknown Verified 08/17/19 20:45 iodine Allergy Mild Unknown Verified 08/17/19 20:45 aspartame Allergy Unknown Verified 08/17/19 20:45 stevioside [From Stevia] Allergy Unknown Verified 08/17/19 20:45 sucralose Allergy Unknown Verified 08/17/19 20:45 [From Splenda (sucralose)] Home Medications Home Medications Medication Instructions Recorded Confirmed Type oxygen-air delivery systems #1 11/02/17 11/14/18 History disopyramide phosphate [Norpace] 100 mg PO QAM 08/10/19 08/17/19 History pantoprazole [Protonix] 40 mg PO QAM 08/10/19 08/17/19 History verapamil 40 mg PO TID 08/10/19 08/17/19 History Januvia 25 mg PO DAILY 08/18/19 08/18/19 History Patient History Medical History Chronic respiratory failure Closed head injury (Chronic) Contusion (Chronic) COPD (chronic obstructive pulmonary disease) (Chronic) Diabetes mellitus, type II Dizziness (Chronic) Facial contusion (Chronic) GERD (gastroesophageal reflux disease) (Chronic) Hyperglycemia (Chronic) Hypertrophic cardiomyopathy (Chronic) Left ventricular outflow tract obstruction Multiple abrasions (Chronic) Nocturnal hypoxemia Osteoporosis (Chronic) Paroxysmal atrial fibrillation 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) SBO (small bowel obstruction) (Chronic) Scoliosis (Chronic) Weakness (Chronic) Surgical History History of (Chronic) S/P cataract surgery (Chronic) S/P lumbar spinal fusion (Chronic) Family History Father Lung disease Heart disease Mother Heart disease Social History Preferred Language: Citizen Of [place] Communication Ability: Effective Purchase Order Checker Required: No Beliefs That Will Affect Care: None marital status: Current Living Situation: Spouse Feels Safe at Home: Yes Smoking Status: Never smoker Second Hand Exposure: No ; Hx Alcohol Use: Yes Alcohol type: wine Alcohol Intake Frequency: Holidays/Special Occasions Hx Substance Use: No Childhood Exposure to Second-Hand Smoke: Yes Review of Systems Review of Systems: All systems reviewed & are unremarkable except as noted in HPI & below Physical Exam Constitutional: WD/WN, vitals as above + thin Neck: trachea midline, no thyromegaly normal visual inspection Respiratory: Auscultation: + diminished lung sounds; no crackles, no rales, no rhonchi and no wheezes Cardiovascular: Rate/Rhythm: regular rate and regular rhythm Heart Sounds: + murmur (II/ systolic murmur RSB) Extremities: no edema Gastrointestinal (Abdomen): normal bowel sounds, soft, nontender, no hepatosplenomegaly Musculoskeletal: no cyanosis or clubbing, extremities motor strength 5/5 Neurologic: PERRL, EOMI, accommodation nl, no face palsy, no dysarthria Psychiatric: A+Ox3, euthymic affect Results & Data ([facility]) Vital Signs (Past 12 Hours) Vital Signs Temp Pulse Pulse Resp BP BP Pulse Ox 08/20/19 07:40 36.8 C 105 H 20 94/55 L 99 08/20/19 07:03 114 H 08/20/19 03:00 36.6 C 78 16 102/67 97 08/19/19 23:45 67 08/19/19 23:30 36.3 C L 70 17 115/68 97 Laboratory Results 08/20/19 08/20/19 08/19/19 Range/Units 07:27 07:27 20:25 WBC 4.85 (4.8-10.8) K/uL RBC 3.72 L (4.2-5.4) M/uL Hgb 10.7 L (12.0-16.0) g/dL Hct 35.0 L (37-47) % MCV 94.1 (80-100) fL MCH 28.8 (25-34) pg MCHC 30.6 L (32-36) g/dL RDW Std Deviation 47.8 H (36.4-46.3) fL RDW Coeff of Ruthie 14.1 (11.5-14.5) % Plt Count 319 (130-400) K/uL MPV 8.6 (7.4-10.4) fL Immature Gran % (Auto) 0.2 % Neut % (Auto) 61.7 % Lymph % (Auto) 23.7 % [place] % (Auto) 10.7 % Eos % (Auto) 3.3 % Baso % (Auto) 0.4 % Immature Gran # (Auto) 0.01 (0.00-0.02) K/uL Neut # (Auto) 2.99 (1.4-6.5) K/uL Lymph # (Auto) 1.15 L (1.2-3.4) K/uL [place] # (Auto) 0.52 (0.11-0.59) K/uL Eos # (Auto) 0.16 (0-0.5) K/uL Baso # (Auto) 0.02 (0-0.2) K/uL POC Glucose 126 H 199 H (70-99) mg/dl 08/19/19 08/19/19 Range/Units 16:56 11:49 WBC (4.8-10.8) K/uL RBC (4.2-5.4) M/uL Hgb (12.0-16.0) g/dL Hct (37-47) % MCV (80-100) fL MCH (25-34) pg MCHC (32-36) g/dL RDW Std Deviation (36.4-46.3) fL RDW Coeff of Ruthie (11.5-14.5) % Plt Count (130-400) K/uL MPV (7.4-10.4) fL Immature Gran % (Auto) % Neut % (Auto) % Lymph % (Auto) % [place] % (Auto) % Eos % (Auto) % Baso % (Auto) % Immature Gran # (Auto) (0.00-0.02) K/uL Neut # (Auto) (1.4-6.5) K/uL Lymph # (Auto) (1.2-3.4) K/uL [place] # (Auto) (0.11-0.59) K/uL Eos # (Auto) (0-0.5) K/uL Baso # (Auto) (0-0.2) K/uL POC Glucose 128 H 128 H (70-99) mg/dl Diagnostic Findings EKG during this admission reviewed: Normal sinus rhythm Possible Left atrial enlargement Borderline ECG When compared with ECG of 17-AUG-2019 20:05, No significant change was found Telemetry reviewed: NSR, sinus tachycardia ranging 90-110 at rest. 7 beat run of VT at 7:20 AM. No atrial fibrillation Medications Administered Current Inpatient Medications Acetaminophen (Tylenol) 325 mg PO Q6H PRN PRN Reason: Pain or Fever Stop: 09/17/19 00:20 Dextrose (Dextrose 50%) 25 - 50 ml IV UD PRN; Protocol PRN Reason: Hypoglycemia Protocol Stop: 09/17/19 00:29 Disopyramide Phosphate (Norpace) 100 mg PO QAM [facility] Stop: 09/17/19 08:59 Last Admin: 08/20/19 08:14 Dose: 100 mg Documented by: Glucagon (Glucagen) 1 mg SQ UD PRN; Protocol PRN Reason: Hypoglycemia Protocol Stop: 09/17/19 00:29 Glucose (Glucose 40%) 15 - 30 gm PO UD PRN; Protocol PRN Reason: Hypoglycemia Protocol Stop: 09/17/19 00:29 Glucose (Dex4 Glucose) 4 - 8 tabs PO UD PRN; Protocol PRN Reason: Hypoglycemia Protocol Stop: 09/17/19 00:29 Insulin Aspart (Novolog Flexpen) 0 units SC ACHS [facility] Stop: 09/17/19 07:29 Last Admin: 08/20/19 08:19 Dose: Not Given Documented by: Miscellaneous (Carbohydrates For Hypoglycemia) 15 - 30 gm PO UD PRN PRN Reason: Hypoglycemia Treatment Stop: 09/17/19 00:29 Nitroglycerin (Nitrostat) 0.4 mg SL UD PRN PRN Reason: Chest Pain Stop: 09/17/19 00:20 Ondansetron HCl (Zofran) 4 mg IV Q6H PRN PRN Reason: Nausea Stop: 09/17/19 00:20 Pantoprazole Sodium (Protonix) 40 mg PO QAM [facility] Stop: 09/18/19 08:59 Last Admin: 08/20/19 08:14 Dose: 40 mg Documented by: Verapamil HCl (Calan) 40 mg PO TID [facility] Stop: 09/17/19 08:59 Last Admin: 08/20/19 08:14 Dose: Not Given Documented by:
--- NOTE | 2019-08-20 09:16 | Gastroenterology Progress Note ---
Date of Service August 20, 2019 Assessment & Plan (1) Rectal bleedin78 year old female admitted w/ rectal bleeding admitted w/ rectal bleeding/anemia last week who underwent EGD (negative) and colonoscopy (no acitve bleeding but blood present concern for small bowel source, pandiverticulosis) admitted w/ rectal bleeding, last BM yesterday. Would recommend a bleeding scan ordered STAT if she has any additional PLease refer to prior note for additional recommendations, plans Trend HGB Monitor stools Transfuse PRN per primary service Colace 100 mg twice daily Attg add: I interviewed and examined pt, reviewed chart and labs. Pt with recent admit GIB, now with dark stool and stable hgb. No BM today. Suspect AVM, tic bleed. Will cont to follow hgb, plan bleeding scan if bleeding recurs. Ok for d/c if no bleeding x 48 hours. Present on Admission?: Yes (2) Anemia: Present on Admission?: Yes Admission and Anticipated Discharge Date Admission Date: August 17, 2019 Subjective pt was seen and evaluated, chart reviewed. No abd pain No nausea, vomiting Is hungry Last BM was yesterday and appeared blood tinged Review of Systems Constitutional: no fever and no fatigue Respiratory: no cough and no dyspnea Cardiovascular: no chest pain and no dyspnea Gastrointestinal: + blood in stools; no abdominal pain Physical Exam Constitutional: well developed and well nourished Neck: trachea midline Respiratory: normal respiratory effort Cardiovascular: Rate/Rhythm: regular rate Gastrointestinal (Abdomen): normal bowel sounds, soft, nontender, no hepatosplenomegaly Skin: no rashes, warm and dry Results & Data ([facility]) Vital Signs (Past 12 Hours) Vital Signs Temp Pulse Pulse Resp BP BP Pulse Ox 08/20/19 07:40 36.8 C 105 H 20 94/55 L 99 08/20/19 07:03 114 H 08/20/19 03:00 36.6 C 78 16 102/67 97 08/19/19 23:45 67 08/19/19 23:30 36.3 C L 70 17 115/68 97 Laboratory Results 08/20/19 08/20/19 08/19/19 Range/Units 07:27 07:27 20:25 WBC 4.85 (4.8-10.8) K/uL RBC 3.72 L (4.2-5.4) M/uL Hgb 10.7 L (12.0-16.0) g/dL Hct 35.0 L (37-47) % MCV 94.1 (80-100) fL MCH 28.8 (25-34) pg MCHC 30.6 L (32-36) g/dL RDW Std Deviation 47.8 H (36.4-46.3) fL RDW Coeff of Ruthie 14.1 (11.5-14.5) % Plt Count 319 (130-400) K/uL MPV 8.6 (7.4-10.4) fL Immature Gran % (Auto) 0.2 % Neut % (Auto) 61.7 % Lymph % (Auto) 23.7 % [place] % (Auto) 10.7 % Eos % (Auto) 3.3 % Baso % (Auto) 0.4 % Immature Gran # (Auto) 0.01 (0.00-0.02) K/uL Neut # (Auto) 2.99 (1.4-6.5) K/uL Lymph # (Auto) 1.15 L (1.2-3.4) K/uL [place] # (Auto) 0.52 (0.11-0.59) K/uL Eos # (Auto) 0.16 (0-0.5) K/uL Baso # (Auto) 0.02 (0-0.2) K/uL POC Glucose 126 H 199 H (70-99) mg/dl 08/19/19 08/19/19 Range/Units 16:56 11:49 WBC (4.8-10.8) K/uL RBC (4.2-5.4) M/uL Hgb (12.0-16.0) g/dL Hct (37-47) % MCV (80-100) fL MCH (25-34) pg MCHC (32-36) g/dL RDW Std Deviation (36.4-46.3) fL RDW Coeff of Ruthie (11.5-14.5) % Plt Count (130-400) K/uL MPV (7.4-10.4) fL Immature Gran % (Auto) % Neut % (Auto) % Lymph % (Auto) % [place] % (Auto) % Eos % (Auto) % Baso % (Auto) % Immature Gran # (Auto) (0.00-0.02) K/uL Neut # (Auto) (1.4-6.5) K/uL Lymph # (Auto) (1.2-3.4) K/uL [place] # (Auto) (0.11-0.59) K/uL Eos # (Auto) (0-0.5) K/uL Baso # (Auto) (0-0.2) K/uL POC Glucose 128 H 128 H (70-99) mg/dl
--- NOTE | 2019-08-20 12:24 | Electrocardiogram Report ---
Test Reason : Blood Pressure : / mmHG Vent. Rate : 077 BPM Atrial Rate : 077 BPM P-R Int : 144 ms QRS Dur : 080 ms QT Int : 376 ms P-R-T Axes : 048 009 077 degrees QTc Int : 425 ms Normal sinus rhythm Possible Left atrial enlargement Borderline ECG When compared with ECG of 17-AUG-2019 20:05, No significant change was found Confirmed by Jerald Savage [id number]) on 08/20/2019 12:23:58 PM Referred By: REFERRED SELF Confirmed By:Darek Savage
[2019-08-21 07:01] LABS: Basophils # (auto) 0.02 K/uL (0-0.2); Basophils % (auto) 0.6 %; Eosinophils # (auto) 0.12 K/uL (0-0.5); Eosinophils % (auto) 3.3 %; Hematocrit (blood only) 33.1 % (37-47); Hemoglobin 10.4 g/dL (12.0-16.0); Immature Granulocytes # (auto) 0.01 K/uL (0.00-0.02); Immature Granulocytes % (auto) 0.3 %; Lymphocytes # (auto) 0.95 K/uL (1.2-3.4); Lymphocytes % (auto) 26.2 %; Mean Corpuscular Hemoglobin 29.2 pg (25-34); Mean Corpuscular Hgb Conc 31.4 g/dL (32-36); Mean Platelet Volume 8.8 fL (7.4-10.4); Monocytes # (auto) 0.47 K/uL (0.11-0.59); Neutrophils # (auto) 2.05 K/uL (1.4-6.5); Neutrophils % (auto) 56.6 %; Platelet Count 280 K/uL (130-400); RDW Coefficient of Variation 14.1 % (11.5-14.5); RDW Standard Deviation 47.1 fL (36.4-46.3); Red Blood Count 3.56 M/uL (4.2-5.4); White Blood Count 3.62 K/uL (4.8-10.8)
--- NOTE | 2019-08-21 08:12 | Gastroenterology Progress Note ---
Date of Service August 21, 2019 Assessment & Plan (1) Rectal bleedin78 year old female admitted w/ rectal bleeding admitted w/ rectal bleeding/anemia last week who underwent EGD (negative) and colonoscopy (no acitve bleeding but blood present concern for small bowel source, pandiverticulosis) admitted w/ rectal bleeding, last BM yesterday, blood tinged. Stable HGB w/o BUN elevation Can continue diet, no plan for endoscopy Would recommend a bleeding scan ordered STAT if she has any additional bloody stools Trend HGB Monitor stools Transfuse PRN per primary service Colace 100 mg twice daily Ok for d/c if no bleeding x 48 hours Thank you for allowing us to participate in the care of this patient. Please call with any acute changes, questions or concerns. Please see addendum below with additional recommendation from my supervising physician. Attg add: I interviewed and examined pt, reviewed chart and labs. Pt without any gross GIB, stable hgb. Source of bleeding ok, and she wishes to go home. OK for d/c home, no need for GI follow up on discharge but should have hgb re-ch ecked in a few days by PCP. (2) Anemia: Admission and Anticipated Discharge Date Admission Date: August 17, 2019 Subjective pt was seen and evaluated, chart reviewed. No acute events overnight No abd pain No nausea, vomiting Is hungry Last BM was yesterday and appeared blood tinged. Suggests she had an additional stool in the evening that had less blood. No dark, tarry stools. No lightheadedness, dizziness, CP, SOB. Review of Systems Constitutional: no fever and no chills Respiratory: no cough and no dyspnea Cardiovascular: no chest pain and no dyspnea Gastrointestinal: no abdominal pain, no coffee ground emesis, no blood in stools and no melena Physical Exam Constitutional: well developed and well nourished; no acute distress Neck: trachea midline Respiratory: normal respiratory effort Cardiovascular: Rate/Rhythm: regular rate Gastrointestinal (Abdomen): normal bowel sounds, soft, nontender, no hepatosplenomegaly Percussion/Palpation: abdomen soft; abdomen nontender Results & Data ([facility]) Vital Signs (Past 12 Hours) Vital Signs Temp Pulse Pulse Resp BP BP Pulse Ox 08/21/19 07:52 36.6 C 99 H 18 102/66 97 08/21/19 04:16 36.6 C 93 H 16 96/59 L 97 08/21/19 00:07 36.6 C 69 18 128/66 99 08/20/19 23:00 65
[2019-08-21] MEDS: VERAPAMIL HCL 40 MG TAB PO SCH ×2 (08:28→13:36)
[2019-08-21] MEDS: DISOPYRAMIDE PHOSPHATE 100 MG PO SCH (08:29)
[2019-08-21] MEDS: PANTOprazole 40 MG TAB PO SCH (08:29)
[2019-08-21] MEDS: INSULIN ASPART 100 UNITS/ML 3 ML PEN SC SCH ×2 (08:43→12:00)
--- NOTE | 2019-08-21 11:50 | Cardiology Progress Note ---
Date of Service August 21, 2019 Assessment & Plan (1) Paroxysmal VT: One 7 beat run earlier this admission, asymptomatic. No recurrence. Electrolytes stable Continue norpace and verapamil (2) Hypertrophic cardiomyopathy: Prelim echo report demonstrates sigmoid septum without LVOT obstruction stable (3) Paroxysmal atrial fibrillation: Currently maintaining NSR Off anticoagulation therapy due to recurrent GI bleed. Continue to hold anticoagulation until f/u appts with GI and cardio (4) Acute GI bleeding: Follow with GI Hold coumadin Monitor H/H (5) Elevated troponin: Likely due to underlying HCM and anemia, demand ischemia No symptoms to suggest ACS EKG without acute changes during admission Case discussed with Dr. Harp. Stable cardiac symptoms. Remain off Coumadin. Continue home doses of Norpace and verapamil. Goal Hbg > 10. Will sign off. Please notify/contact accreditation specialist farm laborer with additional questions or concerns. Patient is aware to keep F/U appt with [facility] in September Supervising Physician Co-Signing Physician Notes Patient seen and examined with Joselin Canchola PA-C. Agree with findings and assessment as above. Completed echocardiogram does show a 50 mmHg inducible LVOT gradient. Continue verapamil and follow-up closely as an outpatient. Remain off Coumadin. Ideally would like to maintain hemoglobin greater than 10. Patient states that she understands the above. General: Awake, alert and oriented x 3. No acute distress. HEENT: Normocephalic, atraumatic. Pupils equal, round and reactive to light and accommodation. Extraocular muscles are intact. Anicteric sclera. Moist mucous membranes. Neck: No JVD. No bruit. Cardiovascular: Regular. Positive S-4. Normal S-1 and S-2. No S-3. 3/6 mid to late systolic ejection murmur, greatest at the right sternal border, second intercostal space with radiation to the bilateral carotids. No rubs. Pulmonary: Clear to auscultation bilaterally. No rales, rhonchi, or wheezing. Abdomen: Bowel sounds x 4, soft. No rebound, guarding or tenderness. No organomegaly. Extremities: No clubbing, cyanosis or edema. +2 pedal pulses bilaterally. Skin: Warm and dry. Subjective Patient reports feeling well this morning. She denies acute cardiac complaints. No recent chest pain or unusual shortness of breath. No sense of palpitations or tachypalpitations. No dizziness. She reportedly had 1 bowel movement approximately 30 minutes ago. She reports several small "tinges of blood" but improved from prior BM. GI following. Hbg stable Review of Systems Review of Systems: All systems reviewed & are unremarkable except as noted in HPI & below Physical Exam Constitutional: WD/WN, vitals as above + thin Neck: trachea midline, no thyromegaly normal visual inspection Respiratory: Auscultation: + diminished lung sounds; no crackles, no rales, no rhonchi and no wheezes Cardiovascular: Rate/Rhythm: regular rate and regular rhythm Heart Sounds: + murmur (II/ systolic murmur RSB) Extremities: no edema Gastrointestinal (Abdomen): normal bowel sounds, soft, nontender, no hepatosplenomegaly Musculoskeletal: no cyanosis or clubbing, extremities motor strength 5/5 Neurologic: PERRL, EOMI, accommodation nl, no face palsy, no dysarthria Psychiatric: A+Ox3, euthymic affect Results & Data Vital Signs (Past 12 Hours) Vital Signs Temp Pulse Pulse Resp BP BP Pulse Ox 08/21/19 11:19 36.9 C 72 20 119/71 99 08/21/19 08:54 87 08/21/19 07:52 36.6 C 99 H 18 102/66 97 08/21/19 04:16 36.6 C 93 H 16 96/59 L 97 08/21/19 00:07 36.6 C 69 18 128/66 99 Laboratory Results 08/21/19 08/21/19 08/21/19 Range/Units 11:42 07:40 06:46 WBC 3.62 L (4.8-10.8) K/uL RBC 3.56 L (4.2-5.4) M/uL Hgb 10.4 L (12.0-16.0) g/dL Hct 33.1 L (37-47) % MCV 93.0 (80-100) fL MCH 29.2 (25-34) pg MCHC 31.4 L (32-36) g/dL RDW Std Deviation 47.1 H (36.4-46.3) fL RDW Coeff of Ruthie 14.1 (11.5-14.5) % Plt Count 280 (130-400) K/uL MPV 8.8 (7.4-10.4) fL Immature Gran % (Auto) 0.3 % Neut % (Auto) 56.6 % Lymph % (Auto) 26.2 % [place] % (Auto) 13.0 % Eos % (Auto) 3.3 % Baso % (Auto) 0.6 % Immature Gran # (Auto) 0.01 (0.00-0.02) K/uL Neut # (Auto) 2.05 (1.4-6.5) K/uL Lymph # (Auto) 0.95 L (1.2-3.4) K/uL [place] # (Auto) 0.47 (0.11-0.59) K/uL Eos # (Auto) 0.12 (0-0.5) K/uL Baso # (Auto) 0.02 (0-0.2) K/uL POC Glucose 106 H 121 H (70-99) mg/dl 08/19/08/20/19 Range/Units 20:15 16:20 WBC (4.8-10.8) K/uL RBC (4.2-5.4) M/uL Hgb (12.0-16.0) g/dL Hct (37-47) % MCV (80-100) fL MCH (25-34) pg MCHC (32-36) g/dL RDW Std Deviation (36.4-46.3) fL RDW Coeff of Ruthie (11.5-14.5) % Plt Count (130-400) K/uL MPV (7.4-10.4) fL Immature Gran % (Auto) % Neut % (Auto) % Lymph % (Auto) % [place] % (Auto) % Eos % (Auto) % Baso % (Auto) % Immature Gran # (Auto) (0.00-0.02) K/uL Neut # (Auto) (1.4-6.5) K/uL Lymph # (Auto) (1.2-3.4) K/uL [place] # (Auto) (0.11-0.59) K/uL Eos # (Auto) (0-0.5) K/uL Baso # (Auto) (0-0.2) K/uL POC Glucose 209 H 129 H (70-99) mg/dl Diagnostic Findings Telemetry reviewed: Normal sinus rhythm with occasional PVC. No recurrent ventricular tachycardia or paroxysmal atrial fibrillation. Medications Administered Current Inpatient Medications Acetaminophen (Tylenol) 325 mg PO Q6H PRN PRN Reason: Pain or Fever Stop: 09/17/19 00:20 Dextrose (Dextrose 50%) 25 - 50 ml IV UD PRN; Protocol PRN Reason: Hypoglycemia Protocol Stop: 09/17/19 00:29 Disopyramide Phosphate (Norpace) 100 mg PO QAM [facility] Stop: 09/17/19 08:59 Last Admin: 08/21/19 08:29 Dose: 100 mg Documented by: Glucagon (Glucagen) 1 mg SQ UD PRN; Protocol PRN Reason: Hypoglycemia Protocol Stop: 09/17/19 00:29 Glucose (Glucose 40%) 15 - 30 gm PO UD PRN; Protocol PRN Reason: Hypoglycemia Protocol Stop: 09/17/19 00:29 Glucose (Dex4 Glucose) 4 - 8 tabs PO UD PRN; Protocol PRN Reason: Hypoglycemia Protocol Stop: 09/17/19 00:29 Insulin Aspart (Novolog Flexpen) 0 units SC ACHS [facility] Stop: 09/17/19 07:29 Last Admin: 08/21/19 08:43 Dose: Not Given Documented by: Miscellaneous (Carbohydrates For Hypoglycemia) 15 - 30 gm PO UD PRN PRN Reason: Hypoglycemia Treatment Stop: 09/17/19 00:29 Nitroglycerin (Nitrostat) 0.4 mg SL UD PRN PRN Reason: Chest Pain Stop: 09/17/19 00:20 Ondansetron HCl (Zofran) 4 mg IV Q6H PRN PRN Reason: Nausea Stop: 09/17/19 00:20 Pantoprazole Sodium (Protonix) 40 mg PO QAM [facility] Stop: 09/18/19 08:59 Last Admin: 08/21/19 08:29 Dose: 40 mg Documented by: Verapamil HCl (Calan) 40 mg PO TID [facility] Stop: 09/17/19 08:59 Last Admin: 08/21/19 08:28 Dose: 40 mg Documented by:
--- NOTE | 2019-08-21 12:38 | Hospitalist Progress Note ---
Date of Service August 21, 2019 Assessment & Plan (1) Rectal bleeding: Suspected to be slow diverticular bleeding -as per admission H/P in regards for recent hospitalizations and context of ED presentation on 08/17/2019 "This is a 78-year-old female with past medical h istory significant for atrial fibrillation, Coumadin is held because of recent GI bleed, hypertrophic obstructive cardiomyopathy, chronic respiratory failure on 2 liters oxygen secondary to scoliosis, restrictive lung disease, GERD, history of recent acute blood loss anemia, history of recent transfusion associated circulatory overload, who presents with rectal bleed. The patient was recently in the hospital, admitted on 08/10/2019 with rectal bleed and she required 5 units of PRBCs, 3 units of FFP, and 1 unit of cyro. At that time, hemoglobin dropped to 4.8. INR was 3.3 and she also received 1 dose of IV vitamin K 5 mg. Colonoscopy, no active bleeding was identified, but blood was found in the entire colon and also showed diverticula around the sigmoid colon. EGD was unremarkable. At that time, the patient was transferred to [place] for further care in case the patient needs IR. At [place], she did fine, she did not require any intervention. Her hemoglobin was stable. Her hospitalization was complicated by transfusion-associated circulatory overload due to multiple blood transfusions given. She was treated with intravenous Lasix and BiPAP for 2 days with improvement of symptoms. Her hemoglobin has been stable and her Coumadin was held. She was discharged home today to follow with the PCP and cardiology with a plan of resuming Coumadin as per PCP and cardiology. The patient states she did fine after going home, but after eating her dinner, she had a bowel movement in which she noticed some blood in the stools and also black stools. She got worried and came back here." -Hemoglobin on this admission appears stable so far around 11 as of 08/18/2019, Gastroenterology suspect her bleeding is a slow diverticular bleeding and to avoid seeds in the diet -08/18/2019: continue protonix drip, advanced the diet from clear liquids to full liquid diet. give BOOST supplements with meals because patient is underweight. -08/19/2019: CBC remains stable so far during this hospital stay, switch protonix from drip to oral pantoprazole, started solid texture diabetic diet, continue BOOST supplements, monitor inpatient today, in case any further GI problems, patient will be NPO after midnight and re-assess on 08/20/2019 -08/20/2019: patient is seen this morning and asymptomatic. she denies any gross bleeding. she sometimes worry of trying to defecate because of history of blood in the stool. patient hemoglobin on 08/20/2019 continues to show pattern of stability. patient to resume the solid diet. patient noted to have mildly lower than usual blood pressure in the AM and mild tachycardia in the morning. Patient denies chest pain or palpitations. she does have history of paroxysmal atrial fibrillation and currently in sinus rhythm. Telemetry monitoring did note brief episodes of ventricular tachycardia but it did not seem that patient feeling acute symptoms. continues to be on 2 liters/min nasal cannula and not feeling shortness of breath. 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 patient was given IV fluids and then assessed by cardiology service -08/21/2019: patient doing well blood counts remain stable. no gross bleeding. patient with no other symptoms. no chest pain. no palpitations. no shortness of breath. no abdomen pain. no nausea. no vomiting. (2) Paroxysmal atrial fibrillation: -currently in sinus rhythm -not on systemic anticoagulation for stroke prevention for paroxysmal atrial fibrillation because of GI bleed -as per cardiology service after evaluating occasional brief runs of tachycardia, continue on verapamil and Norpace, has outpatient cardiology follow up Hypertrophic cardiomyopathy Elevated troponin -0.107, 0.087, 0.84, on admission and no chest pain Chronic hypoxic respiratory failure with hypoxia -maintain the baseline oxygen as 2 liters/min Type 2 diabetes mellitus with no intermediate current use of insulin -hold oral Januvia -sliding scale insulin for now based on blood sugars Underweight with BMI 15.6 Severe malnutrition from diabetes mellitus and multiple acute gastrointestinal illness of GI bleeds -Patient weight 33.4 kg, BMI of 15.[address] consultregistered dietitians termination was the patient has severe malnutrition. Her assessment reveals orbital temporal and clavicle fat/muscle loss. -BOOST supplements with meals Hypomagnesemia -serum magnesium 1.7 on 08/18/2019 and give IV magnesium. serum magnesium is 2 on 08/19/2019 at goal : [phone] Daughter: [phone], Discharge Instructions Patient can continue solid diabetic diet. Patient should take BOOST supplements with meals upcoming appointments with 08/24/2019 11:00 AM Provider Beatrice More MD Department General Internal Medicine [facility] 08/29/2019 10:20 AM Provider Fabián Klein DO Department Gastroenterology, [facility] 09/06/2019 11:00 AM Provider Elaine Magana MD Department Rheumatology [facility] 09/18/2019 10:15 AM Provider Julieth Walters MD Department Dermatology [facility] 09/19/2019 3:00 PM Provider Joel Palacio PA-C Department Cardiology, [facility] Admission and Anticipated Discharge Date Admission Date: August 17, 2019 Subjective patient doing well blood counts remain stable. no gross bleeding. patient with no other symptoms. no chest pain. no palpitations. no shortness of breath. no abdomen pain. no nausea. no vomiting. discharge plans discussed Review of Systems Review of Systems: All systems reviewed & are unremarkable except as noted in Subjective Physical Exam Constitutional: + thin Eyes: PERRL, conjunctivae normal, anicteric sclerae EOM intact bilaterally ENMT: external ear and nose normal, oropharynx normal Neck: trachea midline, no thyromegaly normal visual inspection Respiratory: normal respiratory effort, lungs clear to auscultation Cardiovascular: Rate/Rhythm: regular rhythm Gastrointestinal (Abdomen): normal bowel sounds, soft, nontender, no hepatosplenomegaly Musculoskeletal: Head/Neck/Chest: normocephalic and head atraumatic Neurologic: PERRL, EOMI, accommodation nl, no face palsy, no dysarthria CN's II-XI intact bilaterally Psychiatric: A+Ox3, euthymic affect Results & Data Results & Data ([facility]) Vital Signs (Past 12 Hours) Vital Signs Temp Pulse Pulse Resp BP BP Pulse Ox 08/21/19 11:19 36.9 C 72 20 119/71 99 08/21/19 08:54 87 08/21/19 07:52 36.6 C 99 H 18 102/66 97 08/21/19 04:16 36.6 C 93 H 16 96/59 L 97
--- NOTE | 2019-08-21 13:12 | Discharge Summary ---
Date of Service August 21, 2019 Admission HPI Per Admitting Provider DATE OF ADMISSION: 08/17/2019 CHIEF COMPLAINT: Rectal bleed. HISTORY OF PRESENT ILLNESS: This is a 78-year-old female with past medical history significant for atrial fibrillation, Coumadin is held because of recent GI bleed, hypertrophic obstructive cardiomyopathy, chronic respiratory failure on 2 liters oxygen secondary to scoliosis, restrictive lung disease, GERD, history of recent acute blood loss anemia, history of recent transfusion associated circulatory overload, who presents with rectal bleed. The patient was recently in the hospital, admitted on 08/10/2019 with rectal bleed and she required 5 units of PRBCs, 3 units of FFP, and 1 unit of cyro. At that time, hemoglobin dropped to 4.8. INR was 3.3 and she also received 1 dose of IV vitamin K 5 mg. Colonoscopy, no active bleeding was identified, but blood was found in the entire colon and also showed diverticula around the sigmoid colon. EGD was unremarkable. At that time, the patient was transferred to [place] for further care in case the patient needs IR. At [place], she did fine, she did not require any intervention. Her hemoglobin was stable. Her hospitalization was complicated by transfusion-associated circulatory overload due to multiple blood transfusions given. She was treated with intravenous Lasix and BiPAP for 2 days with improvement of symptoms. Her hemoglobin has been stable and her Coumadin was held. She was discharged home today to follow with the PCP and cardiology with a plan of resuming Coumadin as per PCP and cardiology. The patient states she did fine after going home, but after eating her dinner, she had a bowel movement in which she noticed some blood in the stools and also black stools. She got worried and came back here. She has some mild abdominal discomfort and gas in the abdomen. Denies any other complaints. Lives with her . Denies any chest pain. No shortness of breath, no cough, no fever, no chills, no headaches. Says she has felt some lightheadedness. No blurred visions, no earache, no runny nose, no sore throat, no dysphagia. She has mild swelling in the lower extremity. Says because of the Lasix given in [place] she is peeing a lot, but her urine is clear, no hematuria. Ambulating fine without any support. She says she ate some bird seeds and thinks it could have irritated her stomach today. Currently resting comfortably and hemodynamically stable. Her hemoglobin is stable here at 11. Principal Diagnosis Rectal bleeding Suspected to be slow diverticular bleeding Paroxysmal atrial fibrillation Chronic hypoxic respiratory failure with hypoxia Type 2 diabetes mellitus with no longterm current use of insulin Underweight with BMI 15.6 (Severe malnutrition from diabetes mellitus and multiple acute gastrointestinal illness of GI bleeds) Discharge Exam Constitutional + thin Eyes PERRL, conjunctivae normal, anicteric sclerae EOM intact bilaterally ENMT external ear and nose normal, oropharynx normal Neck trachea midline, no thyromegaly normal visual inspection Respiratory normal respiratory effort, lungs clear to auscultation Cardiovascular Rate/Rhythm: regular rhythm Gastrointestinal (Abdomen) normal bowel sounds, soft, nontender, no hepatosplenomegaly Musculoskeletal Head/Neck/Chest: normocephalic and head atraumatic Neurologic PERRL, EOMI, accommodation nl, no face palsy, no dysarthria CN's II-XI intact bilaterally Psychiatric A+Ox3, euthymic affect Discharge Data Allergies Allergy/AdvReac Type Severity Reaction Status Date / Time hydromorphone [From Dilaudid] Allergy Severe Unknown Verified 08/17/19 20:45 morphine Allergy Severe BREATHING Verified 08/17/19 20:45 DIFFICULTY oxycodone Allergy Severe Unknown Verified 08/17/19 20:45 iodine Allergy Mild Unknown Verified 08/17/19 20:45 aspartame Allergy Unknown Verified 08/17/19 20:45 stevioside [From Stevia] Allergy Unknown Verified 08/17/19 20:45 sucralose Allergy Unknown Verified 08/17/19 20:45 [From Splenda (sucralose)] Consultations 08/17/19 21:08 ED Decision to Admit Stat 08/18/19 00:21 Consult Case Management - Discharge Planning Routine 08/18/19 08:00 Consult Gastroenterology Routine 08/20/19 08:04 Consult Cardiology Routine Hospital Course (1) Rectal bleeding: Suspected to be slow diverticular bleeding -as per admission H/P in regards for recent hospitalizations and context of ED presentation on 08/17/2019 "This is a 78-year-old female with past medical history significant for atrial fibrillation, Coumadin is held because of recent GI bleed, hypertrophic obstructive cardiomyopathy, chronic respiratory failure on 2 liters oxygen secondary to scoliosis, restrictive lung disease, GERD, history of recent acute blood loss anemia, history of recent transfusion associated circulatory overload, who presents with rectal bleed. The patient was recently in the hospital, admitted on 08/10/2019 with rectal bleed and she required 5 units of PRBCs, 3 units of FFP, and 1 unit of cyro. At that time, hemoglobin dropped to 4.8. INR was 3.3 and she also received 1 dose of IV vitamin K 5 mg. Colonoscopy, no active bleeding was identified, but blood was found in the entire colon and also showed diverticula around the sigmoid colon. EGD was unremarkable. At that time, the patient was transferred to [place] for further care in case the patient needs IR. At [place], she did fine, she did not require any intervention. Her hemoglobin was stable. Her hospitalization was complicated by transfusion-associated circulatory overload due to multiple blood transfusions given. She was treated with intravenous Lasix and BiPAP for 2 days with improvement of symptoms. Her hemoglobin has been stable and her Coumadin was held. She was discharged home today to follow with the PCP and cardiology with a plan of r esuming Coumadin as per PCP and cardiology. The patient states she did fine after going home, but after eating her dinner, she had a bowel movement in which she noticed some blood in the stools and also black stools. She got worried and came back here." -Hemoglobin on this admission appears stable so far around 11 as of 08/18/2019, Gastroenterology suspect her bleeding is a slow diverticular bleeding and to avoid seeds in the diet -08/18/2019: continue protonix drip, advanced the diet from clear liquids to full liquid diet. give BOOST supplements with meals because patient is underweight. -08/19/2019: CBC remains stable so far during this hospital stay, switch protonix from drip to oral pantoprazole, started solid texture diabetic diet, continue BOOST supplements, monitor inpatient today, in case any further GI problems, patient will be NPO after midnight and re-assess on 08/20/2019 -08/20/2019: patient is seen this morning and asymptomatic. she denies any gross bleeding. she sometimes worry of trying to defecate because of history of blood in the stool. patient hemoglobin on 08/20/2019 continues to show pattern of stability. patient to resume the solid diet. patient noted to have mildly lower than usual blood pressure in the AM and mild tachycardia in the morning. Patient denies chest pain or palpitations. she does have history of paroxysmal atrial fibrillation and currently in sinus rhythm. Telemetry monitoring did note brief episodes of ventricular tachycardia but it did not seem that patient feeling acute symptoms. continues to be on 2 liters/min nasal cannula and not feeling shortness of breath. 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 patient was given IV fluids and then assessed by cardiology service -08/21/2019: patient doing well blood counts remain stable. no gross bleeding. patient with no other symptoms. no chest pain. no palpitations. no shortness of breath. no abdomen pain. no nausea. no vomiting. (2) Paroxysmal atrial fibrillation: -currently in sinus rhythm -not on systemic anticoagulation for stroke prevention for paroxysmal atrial fibrillation because of GI bleed -as per cardiology service after evaluating occasional brief runs of tachycardia, continue on verapamil and Norpace, has outpatient cardiology follow up Hypertrophic cardiomyopathy Elevated troponin -0.107, 0.087, 0.84, on admission and no chest pain Chronic hypoxic respiratory failure with hypoxia -maintain the baseline oxygen as 2 liters/min Type 2 diabetes mellitus with no termite treater helper current use of insulin -hold oral Januvia -sliding scale insulin for now based on blood sugars Underweight with BMI 15.6 Severe malnutrition from diabetes mellitus and multiple acute gastrointestinal illness of GI bleeds -Patient weight 33.4 kg, BMI of 15.[address] consultregistered dietitians termination was the patient has severe malnutrition. Her assessment reveals orbital temporal and clavicle fat/muscle loss. -BOOST supplements with meals Hypomagnesemia -serum magnesium 1.7 on 08/18/2019 and give IV magnesium. serum magnesium is 2 on 08/19/2019 at goal : [phone] Daughter: [phone], Discharge Instructions Patient can continue solid diabetic diet. Patient should take BOOST supplements with meals upcoming appointments with 08/24/2019 11:00 AM Provider Beatrice More MD Department General Internal Medicine [facility] 08/29/2019 10:20 AM Provider Fabián Klein DO Department Gastroenterology, [facility] 09/06/2019 11:00 AM Provider Elaine Magana MD Department Rheumatology [facility] 09/18/2019 10:15 AM Provider Julieth Walters MD Department Dermatology [facility] 09/19/2019 3:00 PM Provider Joel Palacio PA-C Department Cardiology, [facility] Total Time Total Time Spent Total Time Spent (In Minutes): 40 minutes Total Time Includes: Examination of the Patient, Discharge Planning, Medication Reconciliation and Communication With Other Providers Discharge Plan Discharge Items Patient Disposition: Home - Self-Care Reason For Visit: RECTAL BLEED Discharge Diagnosis: Rectal bleeding Suspected to be slow diverticular bleeding Paroxysmal atrial fibrillation Chronic hypoxic respiratory failure with hypoxia Type 2 diabetes mellitus with no termite treater helper current use of insulin Underweight with BMI 15.6 (Severe malnutrition from diabetes mellitus and multiple acute gastrointestinal illness of GI bleeds) Condition on Discharge: Good Activity: Per Instructions section Non-emergency contact: Primary Care Provider, Meat Dresser and Asbestos Worker Call non-emergency contact if: you have any medication questions Follow-up/Referrals: Beatrice More MD [Primary Care Provider] - Diet: Carb Consistent or DM2 Addtl Attending Provider Instructions: Patient can continue solid diabetic diet. Patient should take BOOST supplements with meals upcoming appointments with 08/24/2019 11:00 AM Provider Beatrice More MD Department General Internal Medicine [facility] 08/29/2019 10:20 AM Provider Fabián Klein DO Department Gastroenterology, [facility] 09/06/2019 11:00 AM Provider Elaine Magana MD Department Rheumatology [facility] 09/18/2019 10:15 AM Provider Julieth Walters MD Department Dermatology [facility] 09/19/2019 3:00 PM Provider Joel Palacio PA-C Department Cardiology, [facility] Pending Studies at Discharge: No Stand-Alone Forms: My [facility] Chug, Smoking Cessation Medications and DC Order Prescriptions: Continued (DME) oxygen-air delivery systems device See Dose Instructions .ROUTE .MEDSUPPLY Qty: 1 RF: 0 verapamil 40 mg tablet 40 mg PO TID RF: 0 pantoprazole [Protonix] 40 mg tablet,delayed release (DR/EC) 40 mg PO QAM RF: 0 disopyramide phosphate [Norpace] 100 mg Capsule 100 mg PO QAM RF: 0 Januvia 25 mg Tablet 25 mg PO DAILY RF: 0 Discharge Orders: Discharge Order (Routine); Ordered 08/21/19 Ordered By: Dev Eaton Admission Data Admit Date/Time: 08/17/19 22:47 Attending Provider: Dev Eaton Admit Provider: Ilya Carbajal Primary Care Provider: Beatrice More Other Providers: Ilya Carbajal ; Kg Alvarenga ; Shruti Lopes ; Staci Adams ; Maribeth Kevin ; Jonn Green ; Fabián Klein ; Nina Corrales ; Machelle Mackey ; Andrew Voss ; Deondre Renteria ; Nataliya Holm ; Katlin Leonard ; Ivonne Minor ; Yolis Sood ; Teresa Wolfe ; Dennis Harp
== END 2019-08-21 14:25 | disposition home or self-care (01) | DRG 377 ==
LOC: ED 19:00 → 2S 22:47 → 1E 08-18 00:19 → 2S 08-18 03:35 → 2W 08-19 09:39